=== PATIENT | female | born 1975 | race Caucasian/White ===

== ENCOUNTER 2017-07-09 09:37 | Inpatient (IN) | payer BC ==
[~2017-07-09] VITALS: Ht 167.6 cm; Wt 92.5 kg
[~2017-07-09 09:37] MED LIST: NAPR-1169 PO; ZOLP5TAB PO
[2017-07-09] MEDS ORDERED: METOCLOPRAMIDE HCL INJ 5 MG/ML 2 ML VIAL IV STA (10:06)
[2017-07-09] MEDS ORDERED: ONDANSETRON 8 MG/54 ML D5W IV STA (10:06)
[2017-07-09] MEDS ORDERED: SODIUM CHLORIDE 0.9% 1000ML 1,000 ML IV STA ×2 (10:06→11:35)
[2017-07-09] MEDS ORDERED: DiphenhydrAMINE HCL 50 MG/ML VIAL IV STA (10:06)
[2017-07-09] MEDS ORDERED: ACETAMINOPHEN 500 MG TAB PO STA (10:06)
--- NOTE | 2017-07-09 10:08 | EMERGENCY ROOM VISIT NOTE ---
History Report prepared by Dawood: Cecily Robins Under the Supervision of: Dr. Geoffrey Light M.D. First contact with patient: 09:52 Chief Complaint: HEADACHE Stated Complaint: SEVERE HEADACHES/FEVER SINCE MONDAY History of Present Illness The patient is a 42 year old white female with a past medical history of arthritis, asthma, and IBS who presents to the ED with a cc of a constant headache beginning 4 days ago. The patient states that in the morning 4 days ago she developed a headache and throughout the day the pain radiated into her neck. That she states that she noticed she had a fever at night and the fever lasted until yesterday. Pt states that 2 days ago her headache was worse than it has been throughout the entire week and she was not able to move her head at all. She reports that she took Tylenol, Motrin, Ibuprofen, and NyQuil without relief of her symptoms. The patient states that yesterday she thought that she was feeling better but her headache returned in the afternoon at an 8/10 in severity. She notes that this morning she had nausea and an episode of vomiting before coming in to the ED. Positive diaphoresis, nausea, vomiting, lethargy, achiness, and stiff neck. Negative cough, recent travel, urinary symptoms. She notes that she was on Omnicef for an inner ear infection 2 weeks ago for a 10 day course that she took 7 of due to diarrhea. Source of History: patient Onset: 4 days ago Position: head Symptom Intensity: 8/10 Timing: constant Modifying Factors (Relieving): other (none) Associated Symptoms: + fevers, + diaphoresis, + neck pain, + nausea, + vomiting, + diarrhea, + fatigue, No cough, No urinary symptoms Note: Pt has achiness. Review of Systems See HPI for pertinent positives and negatives. A total of ten systems were reviewed and were otherwise negative. Past Medical & Surgical Medical Problems: (1) Arthritis (2) Asthma (3) IBS (irritable bowel syndrome) Family History Cancer Diabetes mellitus Social History Smoking Status: Never Smoker Smokeless Tobacco Use: No Alcohol Use: none Marital Status: Housing Status: lives with family Occupation Status: unemployed Current/Historical Medications Scheduled Ibuprofen (Advil), 200-600 MG PO Q4H Allergies Coded Allergies: Penicillins (Verified Allergy, Intermediate, HIVES, 07/09/17) Physical Exam Vital Signs Date Time Temp Pulse Resp B/P (MAP) Pulse Ox O2 Delivery O2 Flow Rate FiO2 07/09/17 14:37 73 16 105/63 97 Room Air 07/09/17 14:00 88 07/09/17 13:17 07/09/17 12:54 76 20 112/75 97 Room Air 07/09/17 11:19 86 15 111/70 97 07/09/17 10:20 96 Room Air 07/09/17 09:56 105 07/09/17 09:42 37.6 123 16 135/89 95 Room Air Physical Exam GENERAL: Awake, alert, non-well appearing, NAD HENT: Normocephalic, atraumatic. EYES: Normal conjunctiva. Sclera non-icteric. NECK: Some neck stiffness, does not have full ROM. RESPIRATORY: Tachycardic but regular, no rhonchi, wheezing, crackles CARDIAC: RRR, no MRG ABDOMEN: Soft, NTND, BS+ MSK: No chest wall TTP, no LE edema, no CVA tenderness NEURO: CN 2-12 intact, 5/5 upper and lower extremity strength, no dysmetria, no drift, good finger to nose, no sensory deficits. SKIN: No rash or jaundice noted. No LE swelling. Medical Decision & Procedures ER Provider Diagnostic Interpretation: Radiology results as stated below per my review and radiologist interpretation: HEAD CT NONCONTRAST TECHNIQUE: Multiaxial CT images of the head were performed without the use of intravenous contrast. Automated exposure control was utilized for this study. A dose lowering technique was utilized adhering to the principles of ALARA. Comparison: None. Findings: The paranasal sinuses and mastoid air cells are clear. The calvarium and skull base are intact. The ventricles and sulci are within normal limits. There is no mass, hematoma, midline shift, or acute infarct. Impression: No acute intracranial abnormality. Electronically signed by: Jose Roberto Durham M.D. 07/09/2017 11:26 AM Dictated Date/Time: 07/09/2017 11:21 AM CHEST ONE VIEW PORTABLE FINDINGS: The lungs are clear. Cardiac silhouette is normal in size. No pleural effusions. No pneumothorax. IMPRESSION: No acute process. Electronically signed by: Jose Roberto Durham M.D. 07/09/2017 10:57 AM Dictated Date/Time: 07/09/2017 10:51 AM Laboratory Results 07/09/17 09:55 Red Blood Count 5.34, Mean Corpuscular Volume 83.7, Mean Corpuscular Hemoglobin 29.2, Mean Corpuscular Hemoglobin Concent 34.9, Mean Platelet Volume 9.8, Neutrophils (%) (Auto) 70.8, Lymphocytes (%) (Auto) 19.0, Monocytes (%) (Auto) 9.8, Eosinophils (%) (Auto) 0.2, Basophils (%) (Auto) 0.2, Neutrophils # (Auto) 3.40, Lymphocytes # (Auto) 0.91, Monocytes # (Auto) 0.47, Eosinophils # (Auto) 0.01, Basophils # (Auto) 0.01 07/09/17 09:55 Test 07/09/17 09:55 07/09/17 10:14 White Blood Count 4.80 K/uL (4.8-10.8) Red Blood Count 5.34 M/uL (4.2-5.4) Hemoglobin 15.6 g/dL (12.0-16.0) Hematocrit 44.7 % (37-47) Mean Corpuscular Volume 83.7 fL (80-100) Mean Corpuscular Hemoglobin 29.2 pg (25-34) Mean Corpuscular Hemoglobin Concent 34.9 g/dl (32-36) Platelet Count 213 K/uL (130-400) Mean Platelet Volume 9.8 fL (7.4-10.4) Neutrophils (%) (Auto) 70.8 % Lymphocytes (%) (Auto) 19.0 % Monocytes (%) (Auto) 9.8 % Eosinophils (%) (Auto) 0.2 % Basophils (%) (Auto) 0.2 % Neutrophils # (Auto) 3.40 K/uL (1.4-6.5) Lymphocytes # (Auto) 0.91 K/uL (1.2-3.4) Monocytes # (Auto) 0.47 K/uL (0.11-0.59) Eosinophils # (Auto) 0.01 K/uL (0-0.5) Basophils # (Auto) 0.01 K/uL (0-0.2) RDW Standard Deviation 38.7 fL (36.4-46.3) RDW Coefficient of Variation 12.9 % (11.5-14.5) Immature Granulocyte % (Auto) 0.0 % Immature Granulocyte # (Auto) 0.00 K/uL (0.00-0.02) Prothrombin Time 11.1 SECONDS (9.0-12.0) Prothromb Time International Ratio 1.0 (0.9-1.1) Activated Partial Thromboplast Time 27.8 SECONDS (21.0-31.0) Partial Thromboplastin Ratio 1.1 Anion Gap 6.0 mmol/L (3-11) Est Creatinine Clear Calc Drug Dose 104.8 ml/min Estimated GFR () 106.9 Estimated GFR (Non- 92.2 BUN/Creatinine Ratio 24.4 (10-20) Calcium Level 8.9 mg/dl (8.5-10.1) Magnesium Level 2.3 mg/dl (1.8-2.4) Total Bilirubin 0.4 mg/dl (0.2-1) Direct Bilirubin 0.1 mg/dl (0-0.2) Aspartate Amino Transf (AST/SGOT) 37 U/L (15-37) Alanine Aminotransferase (ALT/SGPT) 48 U/L (12-78) Alkaline Phosphatase 126 U/L (45-117) Total Protein 8.4 gm/dl (6.4-8.2) Albumin 3.8 gm/dl (3.4-5.0) Lipase 98 U/L (73-393) Thyroid Stimulating Hormone (TSH) 1.090 uIu/ml (0.300-4.500) Influenza Type A Antigen Neg for Influ A (NEG) Influenza Type B Antigen Neg for Influ B (NEG) Laboratory results reviewed by me Medications Administered Medications (Trade) Dose Ordered Sig/Junaid Route Start Time Stop Time Status Last Admin Dose Admin Sodium Chloride 1,000 ml @ 999 mls/hr Q1H1M STAT IV 07/09/17 10:07/09/17 11:06 DC 07/09/17 10:06 999 MLS/HR Ondansetron HCl (Zofran 8mg Iv) 8 mg NOW STAT IV 07/09/17 10:06 07/09/17 10:08 DC 07/09/17 10:16 8 MG Metoclopramide HCl (Reglan Inj) 10 mg NOW STAT IV 07/09/17 10:06 07/09/17 10:08 DC 07/09/17 10:16 10 MG Diphenhydramine HCl (Benadryl Inj) 50 mg NOW STAT IV 07/09/17 10:06 07/09/17 10:08 DC 07/09/17 10:16 50 MG Acetaminophen (Tylenol Tab) 1,000 mg NOW STAT PO 07/09/17 10:06 07/09/17 10:08 DC 07/09/17 10:16 1,000 MG Butalbital/ Aspirin/Caffeine (Fiorinal Tab/ CAP) 1 tab ONE STAT PO 07/09/17 11:35 07/09/17 11:38 DC 07/09/17 11:56 1 TAB Promethazine HCl (Phenergan Inj) 25 mg NOW STAT IM 07/09/17 11:35 07/09/17 11:38 DC 07/09/17 11:56 25 MG Sodium Chloride 1,000 ml @ 999 mls/hr Q1H1M STAT IV 07/09/17 11:35 07/09/17 12:35 DC 07/09/17 11:56 999 MLS/HR Hydromorphone HCl (Dilaudid Inj) 1 mg NOW STAT IV 07/09/17 12:54 07/09/17 12:55 DC 07/09/17 12:59 1 MG Procedure Lumbar Puncture Indication: fever, headache, stiff neck. Verbal consent was obtained after the risks and benefits were explained, including but not limited to headache, bleeding/clotting, scarring, infection, pain, and bone/joint/nerve damage. At this time, the risks of the procedure are less than the risks of NOT performing the procedure. A time out was taken and the correct patient and site identified. The patient was placed in the left lateral decubitus position and the back was prepped with betadine and draped in the standard fashion. The L3 intervertebral space was identified, anesthetized locally with 1% lidocaine without epinephrine, and the spinal needle was inserted through the skin with the bevel parallel to the dural fibers. The needle was carefully advanced into the lumbar cistern and no CSF was obtained. The stylet was replaced and the needle was removed. A bandaid was placed and the patient was placed in the supine position. There were 2 failed attempts. ECG Indication: other (headache) Rate (beats per minute): 98 Rhythm: normal sinus Findings: T-wave inversion (3 and AVF), no ectopy, other (normal intervals, T wave flattening in lateral leads V3-V6) Comparison ECG Date: 12-MAY-2015 Change: no significant change ED Course 0952: The patient was evaluated in room A12. A complete history and physical exam was performed. 1127: I reevaluated and updated the patient. 1333: Two failed attempts at lumbar puncture. See procedure note. 1414: Discussed the patient's case with Dr. Shin of [facility] [place]. The patient will be evaluated for further treatment and disposition. 1436: Upon reexamination, the patient was doing well. I discussed the test results and treatment plan with the patient. The patient will be evaluated for further management. Medical Decision The patient is a 42 year old white female with a past medical history of arthritis, asthma, and IBS who presents to the ED with a cc of a constant headache beginning 4 days ago. Differential diagnosis: Etiologies such as migraine headache, meningitis, sinusitis, CO exposure, ICH, SAH, infection, tumor, headache, sinus thrombosis, arterial dissection, as well as others were entertained. Patient was seen and evaluated the bedside. Patient had been complaining of some fever and headache that has been mildly intermittent although at times severe since Monday. Patient denies any recent travel. Patient did have a recent course of antibiotics for an ear infection of left ear but currently denies any ear pain or difficulty with hearing. Patient's temp is been a max of 101F. Patient denies any cough or urinary symptoms. Patient is on Mirena and LMP was 1 year ago. On exam patient does have some neck stiffness. Patient 's neuro exam is otherwise unremarkable. Patient's white count unremarkable. BMP fairly unremarkable as well. Patient CT negative. I discussed with the patient that given her persistent headache without much symptomatically here in the department with recent fever and ear infection be chambers to obtain a lumbar puncture. I did attempt the procedure without success. 2 separate times were attempted without success. Patient tolerated the procedure well. Given the symptoms with the inability to obtain CSF I spoke with the medicine team about further workup, headache control, and possible LP under fluoroscopy. Medication Reconcilliation Current Medication List: was personally reviewed by me Blood Pressure Screening Patient's blood pressure: Elevated blood pressure Blood pressure disposition: Elevated BP felt to be situational Consults Time Called: 1410 Consulting Physician: Dr. Shin - [facility] [place] Returned Call: 1414 Discussed the patient's case with Dr. Shin of [facility] [place]. The patient will be evaluated for further treatment and disposition. Impression Primary Impression: Fever Additional Impression: Headache Scribe Attestation The scribe's documentation has been prepared under my direction and personally reviewed by me in its entirety. I confirm that the note above accurately reflects all work, treatment, procedures, and medical decision making performed by me. Departure Information Dispostion Being Evaluated By Hospitalist Jojo Doan C.R.N.P. (PCP) Patient Instructions My [facility] Problem Qualifiers Primary Impression: Fever Fever type: unspecified Qualified Codes: R50.9 - Fever, unspecified Additional Impression: Headache Headache type: unspecified Headache chronicity pattern: acute headache Intractability: intractable Qualified Codes: R51 - Headache
[2017-07-09 10:20] LABS: BASO % 0.2 %; BASO ABS # 0.01 K/uL (0-0.2); COMPLETE YES; EOS % 0.2 %; HEMATOCRIT 44.7 % (37-47); LYMPH ABS # 0.91 K/uL (1.2-3.4); MEAN CELL VOLUME 83.7 fL (80-100); MEAN CORPUSCULAR HEMOGLOBIN 29.2 pg (25-34); MEAN CORPUSCULAR HGB CONC 34.9 g/dl (32-36); MEAN PLATELET VOLUME 9.8 fL (7.4-10.4); MONO % 9.8 %; NEUT % 70.8 %; PLATELET COUNT 213 K/uL (130-400); RED BLOOD COUNT 5.34 M/uL (4.2-5.4)
[2017-07-09 10:27] LABS: BUN/CREATININE RATIO 24.4 (10-20); CALCIUM 8.9 mg/dl (8.5-10.1); CREATININE 0.8 mg/dl (0.60-1.20); MAGNESIUM 2.3 mg/dl (1.8-2.4); POTASSIUM 3.5 mmol/L (3.5-5.1)
[2017-07-09 10:31] LABS: PARTIAL THROMBOPLASTIN RATIO 1.1; PROTHROMBIN TIME (PATIENT) 11.1 SECONDS (9.0-12.0)
[2017-07-09 10:38] LABS: THYROID STIMULATING HORMONE 1.09 uIu/ml (0.300-4.500)
[2017-07-09] MEDS ORDERED: IBUP-1050 PO (10:43)
--- NOTE | 2017-07-09 10:58 | DIAGNOSTIC IMAGING REPORT ---
CHEST ONE VIEW PORTABLE HISTORY: EVALUATE WEAKNESS COMPARISON: Chest 06/05/2015. FINDINGS: The lungs are clear. Cardiac silhouette is normal in size. No pleural effusions. No pneumothorax. IMPRESSION: No acute process. Electronically signed by: Jose Roberto Durham M.D. 07/09/2017 10:57 AM Dictated Date/Time: 07/09/2017 10:51 AM
--- NOTE | 2017-07-09 11:28 | DIAGNOSTIC IMAGING REPORT ---
HEAD CT NONCONTRAST CT DOSE: 537.48 mGy.cm HISTORY: EVALUATE WEAKNESS TECHNIQUE: Multiaxial CT images of the head were performed without the use of intravenous contrast. Automated exposure control was utilized for this study. A dose lowering technique was utilized adhering to the principles of ALARA. Comparison: None. Findings: The paranasal sinuses and mastoid air cells are clear. The calvarium and skull base are intact. The ventricles and sulci are within normal limits. There is no mass, hematoma, midline shift, or acute infarct. Impression: No acute intracranial abnormality. Electronically signed by: Jose Roberto Durham M.D. 07/09/2017 11:26 AM Dictated Date/Time: 07/09/2017 11:21 AM
[2017-07-09] MEDS ORDERED: BUTALBITAL/ASA/CAFFEINE 1 EA TAB/CAP PO STA (11:35)
[2017-07-09] MEDS ORDERED: PROMETHAZINE HCL INJ 25 MG/ML 1 ML VIAL IM STA (11:35)
[2017-07-09] MEDS ORDERED: HYDROmorphone INJ 1 MG/ML SYR IV STA (12:54)
[2017-07-09] MEDS ORDERED: LIDOCAINE/EPINEPHRINE 1% 20 ML VIAL INFIL ONE (13:15)
[2017-07-09] MEDS ORDERED: LIDO/EPINEPHRINE/SOD BICARB 20 ML VIAL INFIL ONE (13:15)
[2017-07-09] MEDS ORDERED: ALUMINUM/MAGNESIUM/SIMETH (MAALOX MAX) 30 ML UDC PO PRN (15:15)
[2017-07-09] MEDS ORDERED: MAGNESIUM HYDROXIDE SUSP 30 ML UDC PO PRN (15:15)
[2017-07-09] MEDS ORDERED: POLYETHYLENE (MIRALAX) 17 GM PACK PO PRN (15:15)
[2017-07-09] MEDS ORDERED: ONDANSETRON INJ 2 MG/ML 2 ML VIAL IV PRN (15:15)
[2017-07-09] MEDS ORDERED: ACETAMINOPHEN 325 MG TAB PO PRN (15:15)
[2017-07-09] MEDS ORDERED: CEFTRIAXONE SOD INJ 1 GM in DEXTROSE 5% ADD-VANTAGE 50ML 50 ML IV SCH (15:15)
[2017-07-09] MEDS ORDERED: DEXAMETHASONE SOD INJ 10 MG/ML VIAL IV STA (15:16)
[2017-07-09 16:00] VITALS: O2SAT 96; Ht 167.6 cm; Wt 92.5 kg
--- NOTE | 2017-07-09 16:04 | History and Physical ---
History & Physical Date & Time of Service: Jul 09, 2017 at 15:46 Chief Complaint: Severe Headaches/Fever Since Monday Primary Care Physician: Jojo Bowie C.R.N.P. History of Present Illness Source: patient, spouse, hospital records This is a 42 y/o female with a history of asthma, allergies, and IBS who presented to the ED on 07/09 with severe headache, fevers, and neck stiffness. The patient states she first developed severe frontal headaches on 07/05 that then became progressively worse. They became most severe on 07/07 with the patient complaining of 10/10 pain that radiated down the back of her head to her neck. She complains of associated neck stiffness/tightness and states that any neck movement exacerbates her pain. Currently her headache and neck pain is improved to a 6/10 duller pain. She also complains of fevers, chills and sweats despite taking Tylenol and ibuprofen round the clock, with her temperatures going up to 103F. She started to feel better the following day, but this morning prior to arrival began to feel worse again. This morning she had nausea and did vomit 1 time. She has not had much appetite and is feeling fatigued. She denies any changes in vision, dizziness, lightheadedness, motor weakness, numbness or tingling. The patient denies chest pain, palpitations, claudication, cough, wheezing, shortness of breath, abdominal pain, dysuria, hematuria, urinary retention, paralysis, weakness, numbness and tingling. Past Medical/Surgical History Medical Problems: (1) Arthritis Status: Chronic (2) Asthma Status: Chronic (3) IBS (irritable bowel syndrome) Status: Chronic Family History Cancer Diabetes mellitus Hypertension Myocardial infarction Social History Smoking Status: Never Smoker Smokeless Tobacco Use: No Alcohol Use: none Drug Use: none Marital Status: Housing status: lives with family Occupational Status: employed Immunizations History of Influenza Vaccine: Unknown History of Tetanus Vaccine?: Unknown History of Pneumococcal: Unknown History of Hepatitis B Vaccine: Unknown Multi-Drug Resistant Organisms History of MDRO: No Allergies Coded Allergies: Penicillins (Verified Allergy, Intermediate, HIVES, 07/09/17) Home Medications Scheduled Ibuprofen (Advil), 200-600 MG PO Q4H Review of Systems Constitutional: + fever, + chills, + sweats, + fatigue, + problem reported ( headache) Eyes: + problem reported (mild photosensitivity), No worsening of vision, No eye pain, No diplopia ENT: No hearing loss, No sore throat, No trouble swallowing Respiratory: No cough, No wheezing, No shortness of breath Cardiovascular: No chest pain, No claudication, No palpitations Abdomen: + nausea, + vomiting, No pain Musculoskeletal: + muscle pain (neck pain), No joint pain, No swelling Genitourinary - Female: No dysuria, No urinary retention, No hematuria Neurologic: No paralysis, No weakness, No numbness/tingling, No vertigo Integumentary: No rash, No itch, No color change Physical Exam Vital Signs Date Time Temp Pulse Resp B/P (MAP) Pulse Ox O2 Delivery O2 Flow Rate FiO2 07/09/17 14:37 73 16 105/63 97 Room Air 07/09/17 14:00 88 07/09/17 13:17 07/09/17 12:54 76 20 112/75 97 Room Air 07/09/17 11:19 86 15 111/70 97 07/09/17 10:20 96 Room Air 07/09/17 09:56 105 07/09/17 09:42 37.6 123 16 135/89 95 Room Air General appearance: +Obese. Mild distress. Well-developed, well-nourished Head: Normocephalic, atraumatic Eyes: Normal inspection, PERRL, EOMI ENT: +Dry oral mucosa. Normal ENT inspection, hearing grossly normal, pharynx normal Neck: +Limited ROM, especially flexion/extension. Any ROM exacerbates pain. Supple, no JVD, trachea midline Respiratory/Chest: Lungs clear to auscultation, normal breath sounds, no respiratory distress Cardiovascular: Regular rate & rhythm, no gallop, no murmur Abdomen/GI: Normal bowel sounds, non-tender, soft Extremities/Musculoskeletal: Normal inspection, no calf tenderness, no pedal edema Neurological/Psych: Alert, normal mood/affect, oriented x 3 Skin: Normal color, warm/dry, no rash Diagnostics Laboratory Results Results Past 24 Hours Test 07/09/17 09:55 07/09/17 10:14 07/09/17 15:19 07/09/17 15:37 Range/Units White Blood Count 4.80 4.8-10.8 K/uL Red Blood Count 5.34 4.2-5.4 M/uL Hemoglobin 15.6 12.0-16.0 g/dL Hematocrit 44.7 37-47 % Mean Corpuscular Volume 83.7 80-100 fL Mean Corpuscular Hemoglobin 29.2 25-34 pg Mean Corpuscular Hemoglobin Concent 34.9 32-36 g/dl Platelet Count 213 130-400 K/uL Mean Platelet Volume 9.8 7.4-10.4 fL Neutrophils (%) (Auto) 70.8 % Lymphocytes (%) (Auto) 19.0 % Monocytes (%) (Auto) 9.8 % Eosinophils (%) (Auto) 0.2 % Basophils (%) (Auto) 0.2 % Neutrophils # (Auto) 3.40 1.4-6.5 K/uL Lymphocytes # (Auto) 0.91 1.2-3.4 K/uL Monocytes # (Auto) 0.47 0.11-0.59 K/uL Eosinophils # (Auto) 0.01 0-0.5 K/uL Basophils # (Auto) 0.01 0-0.2 K/uL RDW Standard Deviation 38.7 36.4-46.3 fL RDW Coefficient of Variation 12.9 11.5-14.5 % Immature Granulocyte % (Auto) 0.0 % Immature Granulocyte # (Auto) 0.00 0.00-0.02 K/uL Prothrombin Time 11.1 9.0-12.0 SECONDS Prothromb Time International Ratio 1.0 0.9-1.1 Activated Partial Thromboplast Time 27.8 21.0-31.0 SECONDS Partial Thromboplastin Ratio 1.1 Sodium Level 137 136-145 mmol/L Potassium Level 3.5 3.5-5.1 mmol/L Chloride Level 104 98-107 mmol/L Carbon Dioxide Level 27 21-32 mmol/L Anion Gap 6.0 3-11 mmol/L Blood Urea Nitrogen 20 7-18 mg/dl Creatinine 0.80 0.60-1.20 mg/dl Est Creatinine Clear Calc Drug Dose 104.8 ml/min Estimated GFR () 106.9 Estimated GFR (Non- 92.2 BUN/Creatinine Ratio 24.4 10-20 Random Glucose 98 70-99 mg/dl Calcium Level 8.9 8.5-10.1 mg/dl Magnesium Level 2.3 1.8-2.4 mg/dl Total Bilirubin 0.4 0.2-1 mg/dl Direct Bilirubin 0.1 0-0.2 mg/dl Aspartate Amino Transf (AST/SGOT) 37 15-37 U/L Alanine Aminotransferase (ALT/SGPT) 48 12-78 U/L Alkaline Phosphatase 126 45-117 U/L Total Protein 8.4 6.4-8.2 gm/dl Albumin 3.8 3.4-5.0 gm/dl Lipase 98 73-393 U/L Thyroid Stimulating Hormone (TSH) 1.090 0.300-4.500 uIu/ml Influenza Type A Antigen Neg for Influ A NEG Influenza Type B Antigen Neg for Influ B NEG Test 07/09/17 15:38 Range/Units Microbiology Results 07/09/17 Blood Culture, Received Pending 07/09/17 Blood Culture, Received Pending 07/09/17 Gram Stain, Ordered Pending 07/09/17 CSF Culture, Ordered Pending 07/09/17 Group A Streptococcus Screen - Final, Resulted SPECIMEN NEGATIVE FOR GROUP A BETA ST... 07/09/17 Group A Streptococcus Screen (MAX), Resulted Pending Diagnostic Radiology Reviewed the following studies and agree with interpretation as follows: Patient Name: ADOLPH COATES Unit Number: [id number] Dictated: 07/09/171120 Transcribed: 07/09/171120 [facility] Printed Date/Time: [~ rep prt dt]/[~ rep prt tm] [~ rep ct labl] - [~ rep ct ivnm] [facility] Radiology Department [place], [place] [id number] Dictated: 07/09/171120 Transcribed: 07/09/171120 [facility] Printed Date/Time: [~ rep prt dt]/[~ rep prt tm] [~ rep ct labl] - [~ rep ct ivnm] Patient: ADOLPH COATES Address1: [address] [place] [address] Rec: [id number] Address2: Acct ID: [id number] [facility] Zip: [place] [address] Date: 1975 Sex: F Room/Bed: Ref Phy: Jojo Bowie C.R.N.PVladimir SC: [facility] Att Phy: Report #: [id number] Meggan Phy: Jojo Bowie C.R.N.P. Test: HWO Admit Phy: Freelance Court Reporter: EDEL Interpreting Phy: Jose Roberto Durham MD Diagnosis: SEVERE HEADACHES/FEVER SINCE MONDAY Ordering Phy: Geoffrey Light M.D. Service Date: 07/09/17 Admit Date: 07/09/17 MNE: PWRSCRIBE CONF: DICTATED BY: Jose Roberto Durham M.D.]] CC: Geoffrey Light M.D. Wilt, Kathryn A, C.R.N.P. Endcc: [~ rep ct add3]] HEAD CT NONCONTRAST CT DOSE: 537.48 mGy.cm HISTORY: EVALUATE WEAKNESS TECHNIQUE: Multiaxial CT images of the head were performed without the use of intravenous contrast. Automated exposure control was utilized for this study. A dose lowering technique was utilized adhering to the principles of ALARA. Comparison: None. Findings: The paranasal sinuses and mastoid air cells are clear. The calvarium and skull base are intact. The ventricles and sulci are within normal limits. There is no mass, hematoma, midline shift, or acute infarct. Impression: No acute intracranial abnormality. Electronically signed by: Jose Roberto Durham M.D. 07/09/2017 11:26 AM Dictated Date/Time: 07/09/2017 11:21 AM The status of this report is Signed. Draft = Not yet reviewed or approved by Radiologist. Signed = Reviewed and approved by Radiologist. <AttendingPhy></AttendingPhy> <FamilyPhy>Jojo Bowie C.R.NVladimirPVladimir</FamilyPhy> < PrimaryPhy>Jojo Bowie C.R.NYehuda</PrimaryPhy> <UnitNumber>[id number]</ UnitNumber> <VisitNumber>[id number]</VisitNumber> <PatientName>ADOLPH COATES </PatientName> <DateOfBirth>1975</DateOfBirth> <Location>[facility]</Location> <ServiceDate>07/09/17</ServiceDate> <MNE>ESINDI</MNE> <OrderingPhy>Geoffrey Light M.D.</OrderingPhy> <OrderingPhyMNE>f rep ord dr rhoades</OrderingPhyMNE> < DictatingPhyMNE>f rep dict dr rhoades</DictatingPhyMNE> <CCListMNE>f rep ct mne</ CCListMNE> <AdmittingPhyMNE>f pt admit dr rhoades</AdmittingPhyMNE> <AttendingPhyMNE >f pt attend dr rhoades</AttendingPhyMNE> <ConsultingPhyMNE>f pt consult dr rhoades</ConsultingPhyMNE> <FamilyPhyMNE>f pt fam dr rhoades</FamilyPhyMNE> <OtherPhyMNE>f pt other dr rhoades</OtherPhyMNE> < PrimaryPhyMNE>f pt prim care dr rhoades</PrimaryPhyMNE> <ReferringPhyMNE>f pt referring dr rhoades</ReferringPhyMNE> Patient Name: ADOLPH COATES Unit Number: [id number] Dictated: 07/09/171050 Transcribed: 07/09/171050 [facility] Printed Date/Time: [~ rep prt dt]/[~ rep prt tm] [~ rep ct labl] - [~ rep ct ivnm] [facility] [place] [address] Dictated: 07/09/171050 Transcribed: 07/09/171050 [facility] Printed Date/Time: [~ rep prt dt]/[~ rep prt tm] [~ rep ct labl] - [~ rep ct ivnm] Patient: ADOLPH COATES Address1: [address] [place] [address] Rec: [id number] Address2: Acct ID: [id number] [facility] Zip: [place] [address] Date: 1975 Sex: F Room/Bed: Ref Phy: Jojo Bowie C.R.N.PVladimir SC: [facility] Att Phy: Report #: [id number] Meggan Phy: Wilt, Jojo A,C.R.N.P. Test: CXR1P Admit Phy: Freelance Court Reporter: CAROLYN Interpreting Phy: Jose Roberto Durham MD Diagnosis: SEVERE HEADACHES/FEVER SINCE MONDAY Ordering Phy: Geoffrey Light M.D. Service Date: 07/09/17 Admit Date: 07/09/17 MNE: PWRSCRIBE CONF: DICTATED BY: Jose Roberto Durham M.D.]] CC: Geoffrey Light M.D. Wilt, Kathryn A, C.R.N.PVladimir Endcc: [~ rep ct add3]] CHEST ONE VIEW PORTABLE HISTORY: EVALUATE WEAKNESS COMPARISON: Chest 06/05/2015. FINDINGS: The lungs are clear. Cardiac silhouette is normal in size. No pleural effusions. No pneumothorax. IMPRESSION: No acute process. Electronically signed by: Jose Roberto Durham M.D. 07/09/2017 10:57 AM Dictated Date/Time: 07/09/2017 10:51 AM The status of this report is Signed. Draft = Not yet reviewed or approved by Radiologist. Signed = Reviewed and approved by Radiologist. <AttendingPhy></AttendingPhy> <FamilyPhy>Jojo Bowie C.R.N.PVladimir</FamilyPhy> < PrimaryPhy>Jojo Bowie C.RVladimirN.PVladimir</PrimaryPhy> <UnitNumber>[id number]</ UnitNumber> <VisitNumber>[id number]</VisitNumber> <PatientName>ADOLPH COATES </PatientName> <DateOfBirth>1975</DateOfBirth> <Location>[facility]</Location> <ServiceDate>07/09/17</ServiceDate> <MNE>ESINDI</MNE> <OrderingPhy>Geoffrey Light M.D.</OrderingPhy> <OrderingPhyMNE>f rep ord dr rhoades</OrderingPhyMNE> < DictatingPhyMNE>f rep dict dr rhoades</DictatingPhyMNE> <CCListMNE>f rep ct mne</ CCListMNE> <AdmittingPhyMNE>f pt admit dr rhoades</AdmittingPhyMNE> <AttendingPhyMNE >f pt attend dr rhoades</AttendingPhyMNE> <ConsultingPhyMNE>f pt consult dr rhoades</ConsultingPhyMNE> <FamilyPhyMNE>f pt fam dr rhoades</FamilyPhyMNE> <OtherPhyMNE>f pt other dr rhoades</OtherPhyMNE> < PrimaryPhyMNE>f pt prim care dr rhoades</PrimaryPhyMNE> <ReferringPhyMNE>f pt referring dr rhoades</ReferringPhyMNE> EKG Reviewed EKG and agree with interpretation as follows: 98 bpm, NSR, inferior T wave inversions Impression Assessment and Plan 42 y/o female with a history of asthma, allergies, and IBS who presented to the ED on 07/09 with severe headache, fevers, and neck stiffness. Pt afebrile, VSS on arrival. Head CT and CXR show no acute disease. EKG significant for inferior T wave inversions. Labs grossly unremarkable. Lumbar puncture attempted 2x in ED, unsuccessful. Suspected meningitis, severe headache--likely viral but cannot rule out bacterial -Admit to telemetry -Spoke with radiology, will perform fluoroscopy guided lumbar puncture -Check CSF total protein, glucose, LDH, culture and Gram stain, cell count/ differential, lactate, Lyme antibodies -Check serum Lyme antibodies -Blood cultures pending -Decadron 10 mg IV x 1 now, then 6 mg IV q6h -Start empiric Rocephin 2 gm IV q12h and vancomycin after CSF culture obtained -Dilaudid 0.5 mg IV q4h prn pain -Zofran 4 mg IV q6h prn nausea -NSS + 20 mEq KCl at 125 cc/hr -Pt severely claustrophobic, not agreeable to MRI H/o asthma--pt has prn albuterol inhaler but has not needed for several months H/o allergies--pt had been taking Zyrtec and Zantac but has not needed for several months DVT prophylaxis -Enoxaparin 40 mg SC q24h -JESSICA Sibley Code Status -Level I, FULL RESUSCITATION STATUS Attending Addendum: I have physically seen and examined this patient, have directed the physician assistants medical activities, and agree with the H&P as noted above with the following exceptions as noted. The patient is awake, alert and oriented 3, well-developed and well-nourished , normocephalic and atraumatic, lying in bed and in no acute distress. HEENT--PERRL, EOMI, mucous membranes and oropharynx dry. Neck--supple, no JVD or bruits, thyroid normal, trachea midline, no adenopathy. Heart--normal S1 and S2, no extra beats, no murmurs, rubs or gallops. Lungs--clear bilaterally with good air movement, no respiratory distress, no accessory muscle use. Abdomen--normal bowel sounds and soft, nontender and nondistended, no hernias or masses, no organomegaly. Extremities--no cyanosis, clubbing or edema. There are good distal pulses b/l. Dermatologic--normal skin turgor, normal color, warm and dry, no abnormal lymph nodes, no rash. Neurologic--cranial nerves II through XII grossly intact, motor and sensory examination normal. Rheumatologic--decreased range of motion of neck and mildly tender. Remainder of exam is normal. Psychiatric--normal affect. Assessment and Plan: Severe headache, possible meningitis-- Give Decadron 10 mg IV now, and then 6 mg IV every 6 hours. Vancomycin IV per renal dosing. Ceftriaxone 2 g IV every 12 hours with first dose now. Levofloxacin 750 mg IV daily. Dilaudid 0.5 mg IV every 4 hours when necessary. Zofran 4 mg IV every 6 hours when necessary. Famotidine 20 g IV every 12 hours. NSS with KCl 20 mEq at 125 ML's per hour Patient unable to do MRI due to severe claustrophobia. Radiology consulted for fluoroscopy guided LP. Follow LP studies. Asthma--no active symptoms at this time Allergies--no active symptoms at this time. Level of Care Telemetry Advanced Directives Existing Advance Directive: No Existing Living Will: No Existing Power of Catering Cook: No Resuscitation Status FULL RESUSCITATION VTE Prophylaxis VTE Risk Assessment Done? Y/N: Yes Risk Level: Moderate Given or contraindicated: Enoxaparin (Lovenox)SQ, T.E.D. Stockings, SCD's Social Service Consult None Apply
[2017-07-09 16:11] LABS: LYME DISEASE AB IGG NEG (NEG)
[2017-07-09 16:12] LABS: LYME DISEASE AB IGM EQUIVOCAL (NEG)
[2017-07-09 17:00] VITALS: BP 126/78; PULSE 71; TEMP 37.2; O2SAT 95
--- NOTE | 2017-07-09 17:05 | DIAGNOSTIC IMAGING REPORT ---
FLUOROSCOPICALLY GUIDED LUMBAR PUNCTURE CLINICAL HISTORY: SUSPECTED MENINGITIS, 2 FAILED ATTEMPTS IN ED PROCEDURE: The procedure, risks and benefits were discussed with the patient including the risk of spinal headache, bleeding and infection. The patient agreed to the procedure and informed written consent was obtained. The procedure was performed by Dr. Dockery following a timeout. The right L3-L4 interlaminar space was targeted. Skin overlying the space was prepped and draped in sterile fashion and local anesthesia was achieved with 1% lidocaine. Under intermittent fluoroscopic guidance, a 5 inch, 22-gauge spinal needle was directed into the thecal sac with immediate return of clear cerebrospinal fluid. 8 cc of CSF was collected in 4 vials and sent to the laboratory as ordered. The needle was removed. The patient tolerated the procedure well and no immediate complications were evident. IMPRESSION: Fluoroscopically guided lumbar puncture with collection of 8 cc of clear cerebrospinal fluid. Electronically signed by: Edy Dockery M.D. 07/09/2017 5:04 PM Dictated Date/Time: 07/09/2017 5:02 PM
[2017-07-09 17:14] LABS: CSF CHEMISTRY TUBE # 1
[2017-07-09] MEDS ORDERED: VANCOMYCIN CONSULT ACTIVE PRN (17:15)
[2017-07-09 17:22] LABS: CSF APPEARANCE CLEAR; CSF COLOR COLORLESS; CSF XANTHOCHROMIC NO XANTHOCHROMIA
[2017-07-09 17:29] LABS: CSF LACTATE** 1.4 mmol/L (0.6-2.2); CSF TOTAL PROTEIN 35.4 mg/dl (15.0-45.0)
[2017-07-09] MEDS ORDERED: DEXAMETHASONE INJ 10 MG in SYRINGE 0 ML IV ONE (17:30)
[2017-07-09] MEDS: HYDROmorphone INJ 0.5 MG/0.5 ML SYR IV PRN ×2 (17:35→21:33)
[2017-07-09] MEDS: NSS + 20MEQ KCL 1000ML 1,000 ML IV SCH (17:42)
[2017-07-09] MEDS ORDERED: VANCOMYCIN INJ 2,250 MG in SODIUM CHLORIDE 0.9% 500ML 500 ML IV SCH (17:45)
--- NOTE | 2017-07-09 19:01 | Pharmacy Progress Note ---
Pharmacy Abx Initial Consult Date of Service Jul 09, 2017. Pharmacy Dosing Scope Date of Consult: 07/09/17 Consultation requested by: LUZ ELENA [facility] is consulted to initiate Vancomycin IV dosing therapy for meningitis, order appropriate labs and adjust drug dose/frequency. Subjective The patient is a 42 year old female admitted on Jul 09, 2017 at 15:15. Objective Height (Feet): 5 Height (Inches): 6.00 Weight (Kilograms): 88.700 Vital Signs (Past 12Hrs) Vital Signs Past 12 Hours Date Time Temp Pulse Resp B/P (MAP) Pulse Ox O2 Delivery O2 Flow Rate FiO2 07/09/17 17:00 37.2 71 18 126/78 (94) 95 Room Air 07/09/17 16:20 37.1 69 21 115/72 94 07/09/17 16:07 69 21 94 07/09/17 16:00 96 Room Air 07/09/17 15:44 37.1 79 16 115/72 96 Room Air 07/09/17 15:43 115/72 07/09/17 15:37 79 14 07/09/17 15:07 87 18 07/09/17 14:37 73 16 105/63 97 Room Air 07/09/17 14:37 74 21 105/63 07/09/17 14:07 80 20 07/09/17 14:00 88 07/09/17 13:37 79 27 07/09/17 13:17 07/09/17 13:07 68 19 07/09/17 12:54 112/75 07/09/17 12:54 76 20 112/75 97 Room Air 07/09/17 12:37 72 22 07/09/17 12:07 79 23 07/09/17 11:37 84 22 07/09/17 11:20 111/70 07/09/17 11:19 86 15 111/70 97 07/09/17 10:37 94 28 07/09/17 10:20 96 Room Air 07/09/17 10:07 98 16 07/09/17 09:56 105 07/09/17 09:42 37.6 123 16 135/89 95 Room Air Lab Results (24Hrs) Laboratory Tests (24 Hours) Test 07/09/17 09:55 White Blood Count 4.80 K/uL (4.8-10.8) Red Blood Count 5.34 M/uL (4.2-5.4) Hemoglobin 15.6 g/dL (12.0-16.0) Hematocrit 44.7 % (37-47) Mean Corpuscular Volume 83.7 fL (80-100) Mean Corpuscular Hemoglobin 29.2 pg (25-34) Mean Corpuscular Hemoglobin Concent 34.9 g/dl (32-36) Platelet Count 213 K/uL (130-400) Mean Platelet Volume 9.8 fL (7.4-10.4) Neutrophils (%) (Auto) 70.8 % Lymphocytes (%) (Auto) 19.0 % Monocytes (%) (Auto) 9.8 % Eosinophils (%) (Auto) 0.2 % Basophils (%) (Auto) 0.2 % Neutrophils # (Auto) 3.40 K/uL (1.4-6.5) Lymphocytes # (Auto) 0.91 K/uL (1.2-3.4) L Monocytes # (Auto) 0.47 K/uL (0.11-0.59) Eosinophils # (Auto) 0.01 K/uL (0-0.5) Basophils # (Auto) 0.01 K/uL (0-0.2) Micro Results Date/Time Source Procedure Growth Status 07/09/17 10:24 Blood Blood Culture Pending Received 07/09/17 09:55 Blood Blood Culture Pending Received 07/09/17 16:35 Cerebral Spinal Fluid Gram Stain - Preliminary Resulted 07/09/17 16:35 Cerebral Spinal Fluid CSF Culture Pending Resulted 07/09/17 10:14 Throat Group A Streptococcus Screen - Final SPECIMEN NEGATIVE FOR GROUP A BETA ST... Resulted 07/09/17 10:14 Throat Group A Streptococcus Screen (MAX) Pending Resulted Risk Factors for Resistance * Antimicrobial use within the last 90 days Cefdiner [unknown dose] ~2 weeks ago for a 7-day treatment course Assessment & Plan Assessment 42 year old female Plan Pharmacy has been consulted for treatment of meningitis Vancomycin IV * Loading dose: 2250 mg (25 mg/kg) * Maintenance dose: 1250 mg IV (14 mg/kg) every 8 hours * Goal trough level for meningitis : 15 to 20 mcg/mL (closer to 20mcg/mL) * Trough level ordered for 07/10/17 ~30 minutes before the 3rd maintenance dose Pharmacy will continue to follow and will adjust dose/frequency as necessary. Thank you.
[2017-07-09 19:22] VITALS: BP 100/67; PULSE 75; TEMP 37.2; O2SAT 93
[2017-07-09 20:00] VITALS: O2SAT 93
[2017-07-09] MEDS: CEFTRIAXONE SOD INJ 2000 MG in DEXTROSE 5% 50ML IV SCH (20:38)
[2017-07-09] MEDS: ENOXAPARIN 40 MG/0.4 ML SYR SC SCH (20:39)
[2017-07-09] MEDS ORDERED: VANCOMYCIN INJ 1,000 MG in SODIUM CHLORIDE 0.9% 250ML 250 ML IV SCH (21:00)
[2017-07-09 21:09] LABS: URINE APPEARANCE CLEAR (CLEAR); URINE BILIRUBIN NEG (NEG); URINE COLOR YELLOW; URINE NITRITE NEG (NEG); URINE PH 6.5 (4.5-7.5); URINE SPECIFIC GRAVITY 1.014 (1.000-1.030); UROBILINOGEN NEG (NEG)
[2017-07-09 21:17] LABS: MANUAL MICROSCOPIC REQUIRED? NO; REVIEW REQ? NO
[2017-07-09] MEDS: DEXAMETHASONE INJ 6 MG in SYRINGE 0 ML IV SCH (23:08)
[2017-07-09] MEDS ORDERED: HYDROmorphone INJ 0.5 MG/0.5 ML SYR IV STA (23:51)
[2017-07-10] VITALS (10 sets, daily range): BP systolic 91–111; BP diastolic 50–75; PULSE 56–71; TEMP 36.5–37.1; O2SAT 92–98
[2017-07-10] MEDS: NSS + 20MEQ KCL 1000ML 1,000 ML IV SCH ×3 (02:11→18:03)
[2017-07-10] MEDS: VANCOMYCIN INJ 1,250 MG in SODIUM CHLORIDE 0.9% 250ML 250 ML IV SCH ×2 (02:12→09:37)
[2017-07-10] MEDS: HYDROmorphone INJ 0.5 MG/0.5 ML SYR IV PRN ×5 (02:12→19:58)
[2017-07-10] MEDS: DEXAMETHASONE INJ 6 MG in SYRINGE 0 ML IV SCH (05:05)
[2017-07-10 06:31] LABS: HEMATOCRIT 38.1 % (37-47); MEAN CELL VOLUME 84.1 fL (80-100); MEAN CORPUSCULAR HEMOGLOBIN 29.4 pg (25-34); MEAN CORPUSCULAR HGB CONC 34.9 g/dl (32-36); MEAN PLATELET VOLUME 9.6 fL (7.4-10.4); PLATELET COUNT 200 K/uL (130-400); RED BLOOD COUNT 4.53 M/uL (4.2-5.4); WHITE BLOOD COUNT 2.73 K/uL (4.8-10.8)
[2017-07-10] MEDS ORDERED: INFLUENZA ADMINISTRATION CHARGE ONE (07:00)
[2017-07-10] MEDS ORDERED: INFLUENZA VIRUS QUAD VACCINE 0.5 ML SYR IM. ONE (07:00)
[2017-07-10 07:11] LABS: CREATININE 0.54 mg/dl (0.60-1.20)
[2017-07-10] MEDS: CEFTRIAXONE SOD INJ 2000 MG in DEXTROSE 5% 50ML IV SCH (07:38)
[2017-07-10] MEDS ORDERED: HYDROmorphone INJ 1 MG/ML SYR ONE (09:33)
[2017-07-10] MEDS ORDERED: HYDROmorphone INJ 1 MG/ML SYR IV SCH (09:45)
[2017-07-10] MEDS ORDERED: CYCLOBENZAPRINE HCL 10 MG TAB PO ONE (11:45)
--- NOTE | 2017-07-10 13:27 | Medical Student: [facility] ---
Med Student Progress Note Date of Service Jul 10, 2017. Subjective Pt evaluation today including: conversation w/ patient, conversation w/ family , physical exam, chart review, lab review, review of studies Pt is a 42 yo female with a PMH of Asthma, allergies and IBS - who has had a severe headache, fever and neck stiffness for the last five days. She has had no history of headaches/migraines. She notes that the headache starts in the frontal region and extend to the occipital region and down her neck. They are typically a dull, throbbing sensation, but have been sharp and stabbing on occasion. She is also photosensitive. Overnight the headache was as bad as an 8/ 10 but is now about a 4/10 with 1gm of Dilaudid. She notes that about a month ago she was treated for mastoiditis and her daughter was sick with the flu about 2 weeks ago. She feels slightly week and has no appetite. She feels tired but has been unable to get restful sleep. She does note some visual hallucinations after starting the Dilaudid but per her 's report her mentation has remained the same throughout the entire period of the illness. She denies n/v/d/c, fever chills now. She has less pain with neck rotation but still notes pain that impedes neck flexion. She has been hospitalized before for vertigo. Does not have any hearing loss. She has been hypotensive and bradycardic overnight. Her LP was negative for RBCs and WBCs (RBC=0, WBC=0), there was no xanthochromia. Glucose was 46 and total protein was 35.4. Throat culture was negative for Strep. Urine and CSF cultures are still pending. Head CT and CXR negative for acute processes. Review of Systems Constitutional: + weakness (generalized), No fever, No chills, No sweats Eyes: + problem reported (photophobia) ENT: No hearing loss, No tinnitus Respiratory: No cough, No sputum, No wheezing, No shortness of breath Cardiac: No chest pain, No palpitations Abdomen: No pain, No nausea, No vomiting, No diarrhea, No constipation Musculoskeletal: No joint pain Female : No dysuria, No urinary frequency Neurologic: + problem reported (dizzy while sitting up. 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 ), No itch Objective Vital Signs Date Time Temp Pulse Resp B/P (MAP) Pulse Ox O2 Delivery O2 Flow Rate FiO2 07/10/17 12:06 36.8 57 18 111/70 (84) 92 Room Air 07/10/17 12:00 95 Room Air 07/10/17 08:00 97 Room Air 07/10/17 07:04 36.7 56 18 91/58 (69) 97 Room Air 07/10/17 04:00 93 Room Air 07/10/17 04:00 36.7 71 18 110/75 (87) 98 Room Air 07/10/17 00:03 37.1 62 18 96/51 (66) 94 Room Air 07/10/17 00:00 93 Room Air 07/09/17 20:00 93 Room Air 07/09/17 19:22 37.2 75 20 100/67 (78) 93 Room Air 07/09/17 17:00 37.2 71 18 126/78 (94) 95 Room Air 07/09/17 16:20 37.1 69 21 115/72 94 07/09/17 16:07 69 21 94 07/09/17 16:00 96 Room Air 07/09/17 15:44 37.1 79 16 115/72 96 Room Air 07/09/17 15:43 115/72 07/09/17 15:37 79 14 07/09/17 15:07 87 18 07/09/17 14:37 73 16 105/63 97 Room Air 07/09/17 14:37 74 21 105/63 07/09/17 14:07 80 20 07/09/17 14:00 88 07/09/17 13:37 79 27 07/09/17 13:17 Physical Exam General Appearance: WD/WN, no apparent distress (resting in bed with eyes closed. ) ENT: hearing grossly normal, TMs normal (no effusions), pharynx normal Neck: supple, no adenopathy, no JVD, + pertinent finding (tender/tight in posterior neck ? musculoskelatal) Respiratory/Chest: lungs clear, normal breath sounds, no respiratory distress Cardiovascular: regular rate, rhythm, no edema, no murmur Abdomen: non tender, soft, no organomegaly Extremities: normal range of motion, non-tender, normal inspection, no pedal edema Neurologic/Psychiatric: alert, normal mood/affect, oriented x 3 Skin: normal color, warm/dry, + pertinent finding (healed bug bites present on RLE) Laboratory Results Last 24 Hours Test 07/09/17 16:35 07/09/17 20:52 07/10/17 06:18 07/10/17 11:27 CSF Color COLORLESS CSF Appearance CLEAR CSF WBC 0 /uL CSF RBC 0 /uL CSF Xanthrochromic NO XANTHOCHROMIA CSF Cell Count Tube # 3 CSF Chemistry Tube # 1 CSF Glucose 46 mg/dl CSF Lactic Acid 1.4 mmol/L CSF Total Protein 35.4 mg/dl Urine Color YELLOW Urine Appearance CLEAR Urine pH 6.5 Urine Specific [place] 1.014 Urine Protein NEG Urine Glucose (UA) NEG Urine Ketones 1+ Urine Occult Blood NEG Urine Nitrite NEG Urine Bilirubin NEG Urine Urobilinogen NEG Urine Leukocyte Esterase NEG White Blood Count 2.73 K/uL Red Blood Count 4.53 M/uL Hemoglobin 13.3 g/dL Hematocrit 38.1 % Mean Corpuscular Volume 84.1 fL Mean Corpuscular Hemoglobin 29.4 pg Mean Corpuscular Hemoglobin Concent 34.9 g/dl RDW Standard Deviation 39.0 fL RDW Coefficient of Variation 12.8 % Platelet Count 200 K/uL Mean Platelet Volume 9.6 fL Sodium Level 140 mmol/L Potassium Level 4.0 mmol/L Chloride Level 107 mmol/L Carbon Dioxide Level 25 mmol/L Anion Gap 8.0 mmol/L Blood Urea Nitrogen 10 mg/dl Creatinine 0.54 mg/dl Est Creatinine Clear Calc Drug Dose 155.2 ml/min Estimated GFR () 136.8 Estimated GFR (Non- 118.0 BUN/Creatinine Ratio 18.0 Random Glucose 130 mg/dl Calcium Level 8.0 mg/dl Monoscreen NEG Assessment and Plan Assessment and Plan: Patient is a 42 yo female with PMH significant for asthma, allergies and IBS. She has had a 5 day h/o severe headache, neck stiffness, fever. Viral Meningitis - improved neck ROM. Headaches continue to be severe. -LP unremarkable for WBCs thus do not suspect bacterial meningitis. Pt has also been afebrile. D/c antibiotics, decadron. -Daughter had recent "flu-like" illness, patient works in long-[employer]. Suspect Viral meningitis. -Monospot test is negative. -Lyme serology is negative. -Blood and CSF cxs still pending. COntinue to follow. -Throat swab negative for Strep. -Continue Dilaudid 0.5 mg q 4 hrs PRN pain -Decreased appetite - continue NSS +20 meq of K at 125 cc/hr. Continue to monitor BP and HR. -Anticipate with time and supportive care pt will improve. -Neutropenic today, will continue to trend. May be dt viral infxn. -Cervical tightness/pain - ? muscle strain. - Flexeril 10mg given once. Asthma - Controlled. -Has albuterol inhaler for PRN basis. Has not used in months. Allergies - Controlled. -Uses Zyrtec on PRN basis. DVT prophylaxis: Lovenox 40 mg q day Code Status: FULL RESUSCITATION STATUS Dispo: Remain on Medical floor. Continued [facility] stay due to: inadequate po fluid intake
--- NOTE | 2017-07-10 16:51 | Progress Note ---
Subjective Date of Service: Jul 10, 2017. Subjective Pt evaluation today including: conversation w/ patient, conversation w/ family (), physical exam, lab review, review of inpatient medication list Pain: still with headache PO Intake: poor appetite Voiding: no voiding problems reviewed presentation with headache and fever, several days duration prior to presentation two weeks ago she was treated for left sided mastoiditis, completed only 7 days due to diarrhea, Omnicef one week ago her daughter had similar symptoms of fever and headache, resolved after 4 days patient feels slightly better since admission, headache down to 4 out of 10 at times, better with the Dilaudid she did notice some visual hallucinations with the dilaudid, made it difficult to sleep reviewed lab results, CSF clear of signs of infection, cultures still pending influenza negative, monospot negative, Lyme negative discussed all results with patient confirmed that at no time did she have altered mental status, explained MRI brain not needed, she would prefer not to get one anyway Problem List Medical Problems: (1) Fever Status: Acute (2) Headache Status: Acute Review of Systems Constitutional: + fever, + chills, + sweats, + weakness, + fatigue, + problem reported (headache) ENT: + nasal symptoms (congestion) Abdomen: + nausea, + vomiting All Other Systems: Reviewed and Negative Medications Current Inpatient Medications Medications (Trade) Dose Ordered Sig/Junaid Route Start Time Stop Time Status Last Admin Dose Admin Enoxaparin Sodium (Lovenox Inj) 40 mg HS SC 07/09/17 21:00 08/08/17 20:59 07/09/17 20:39 40 MG Potassium Chloride/Sodium Chloride 1,000 ml @ 125 mls/hr Q8H IV 07/09/17 17:30 08/08/17 17:29 07/10/17 09:36 125 MLS/HR Acetaminophen (Tylenol Tab) 650 mg Q4H PRN PO 07/09/17 15:15 08/08/17 15:14 07/10/17 05:05 650 MG Al Hydrox/Mg Hydrox/Simethicone (Maalox Max Susp) 15 ml Q4H PRN PO 07/09/17 15:15 08/08/17 15:14 Magnesium Hydroxide (Milk Of Magnesia Susp) 30 ml Q12H PRN PO 07/09/17 15:15 08/08/17 15:14 Ondansetron HCl (Zofran Inj) 4 mg Q6H PRN IV 07/09/17 15:15 08/08/17 15:14 Polyethylene (Miralax Powder Packet) 17 gm DAILY PRN PO 07/09/17 15:15 08/08/17 15:14 Hydromorphone HCl (Dilaudid Inj) 0.5 mg Q4H PRN IV 07/09/17 15:15 07/23/17 15:14 07/10/17 16:03 0.5 MG Objective Vital Signs Date Time Temp Pulse Resp B/P (MAP) Pulse Ox O2 Delivery O2 Flow Rate FiO2 07/10/17 15:38 36.5 57 20 100/63 (75) 94 07/10/17 12:06 36.8 57 18 111/70 (84) 92 Room Air 07/10/17 12:00 95 Room Air 07/10/17 08:00 97 Room Air 07/10/17 07:04 36.7 56 18 91/58 (69) 97 Room Air 07/10/17 04:00 93 Room Air 07/10/17 04:00 36.7 71 18 110/75 (87) 98 Room Air 07/10/17 00:03 37.1 62 18 96/51 (66) 94 Room Air 07/10/17 00:00 93 Room Air 07/09/17 20:00 93 Room Air 07/09/17 19:22 37.2 75 20 100/67 (78) 93 Room Air 07/09/17 17:00 37.2 71 18 126/78 (94) 95 Room Air Physical Exam General Appearance: WD/WN, no apparent distress Eyes: normal inspection, EOMI, sclerae normal ENT: normal ENT inspection, hearing grossly normal, TMs normal, pharynx normal Neck: no adenopathy, thyroid normal, no JVD, trachea midline, + pertinent finding (bilateral paraspinal muscle tenderness, increased tension in cervical region, trapezius tenderness and increased tension) Respiratory/Chest: chest non-tender, lungs clear, normal breath sounds, no respiratory distress, no accessory muscle use Cardiovascular: regular rate, rhythm, no edema, no gallop, no JVD, no murmur Abdomen: normal bowel sounds, non tender, soft, no organomegaly Extremities: normal range of motion, non-tender, normal inspection, no pedal edema, normal capillary refill, pelvis stable 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/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: 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 tested, no motor/sensory deficits, alert, normal mood/affect, oriented x 3 Skin: normal color, warm/dry, no rash Laboratory Results Last 24 Hours Test 07/09/17 20:52 07/10/17 06:18 07/10/17 11:27 Urine Color YELLOW Urine Appearance CLEAR Urine pH 6.5 Urine Specific [place] 1.014 Urine Protein NEG Urine Glucose (UA) NEG Urine Ketones 1+ Urine Occult Blood NEG Urine Nitrite NEG Urine Bilirubin NEG Urine Urobilinogen NEG Urine Leukocyte Esterase NEG White Blood Count 2.73 K/uL Red Blood Count 4.53 M/uL Hemoglobin 13.3 g/dL Hematocrit 38.1 % Mean Corpuscular Volume 84.1 fL Mean Corpuscular Hemoglobin 29.4 pg Mean Corpuscular Hemoglobin Concent 34.9 g/dl RDW Standard Deviation 39.0 fL RDW Coefficient of Variation 12.8 % Platelet Count 200 K/uL Mean Platelet Volume 9.6 fL Sodium Level 140 mmol/L Potassium Level 4.0 mmol/L Chloride Level 107 mmol/L Carbon Dioxide Level 25 mmol/L Anion Gap 8.0 mmol/L Blood Urea Nitrogen 10 mg/dl Creatinine 0.54 mg/dl Est Creatinine Clear Calc Drug Dose 155.2 ml/min Estimated GFR () 136.8 Estimated GFR (Non- 118.0 BUN/Creatinine Ratio 18.0 Random Glucose 130 mg/dl Calcium Level 8.0 mg/dl Monoscreen NEG Assessment and Plan 42 y/o female with a history of asthma, allergies, and IBS who presented to the ED on 07/09 with severe headache, fevers, and neck stiffness. Pt afebrile, VSS on arrival. Head CT and CXR show no acute disease. EKG significant for inferior T wave inversions. Labs grossly unremarkable. Lumbar puncture attempted 2x in ED, unsuccessful. Severe headache, neck stiffness, fevers prior to admission suspected meningitis, likely viral given daughter had similar symptoms a week prior no evidence of bacterial meningitis on CSF, will stop Vancomycin, Rocephin and Decadron stop droplet precautions some of headache and neck pain due to paraspinal muscle tenderness, relief with a single dose of Flexeril 10mg will continue Flexeril 10mg q8 PRN continue Dilaudid IV PRN continue IV fluids as appetite is poor and clinically dry H/o asthma--pt has prn albuterol inhaler but has not needed for several months H/o allergies--pt had been taking Zyrtec and Zantac but has not needed for several months DVT prophylaxis -Enoxaparin 40 mg SC q24h -JESSICA Sibley Code Status -Level I, FULL RESUSCITATION STATUS Continued [facility] stay due to: inadequate po fluid intake
[2017-07-10] MEDS ORDERED: VANCOMYCIN TROUGH SCH (17:30)
[2017-07-10] MEDS ORDERED: NURSING VERBAL MED ORDER ONE (18:45)
[2017-07-10] MEDS: CYCLOBENZAPRINE HCL 10 MG TAB PO PRN (19:08)
[2017-07-10] MEDS ORDERED: CALAMINE/PRAMOXINE LOTION 177 APPLN/177 ML BTL EXT PRN (19:15)
[2017-07-10] MEDS: ENOXAPARIN 40 MG/0.4 ML SYR SC SCH (20:42)
[2017-07-11] MEDS: NSS + 20MEQ KCL 1000ML 1,000 ML IV SCH ×3 (01:19→20:50)
[2017-07-11] MEDS: HYDROmorphone INJ 0.5 MG/0.5 ML SYR IV PRN ×5 (02:39→23:09)
[2017-07-11 04:25] VITALS: BP 91/59; PULSE 56; TEMP 36.6; O2SAT 96
[2017-07-11 05:48] LABS: HEMATOCRIT 33.1 % (37-47); MEAN CELL VOLUME 84.9 fL (80-100); MEAN CORPUSCULAR HEMOGLOBIN 28.7 pg (25-34); MEAN CORPUSCULAR HGB CONC 33.8 g/dl (32-36); MEAN PLATELET VOLUME 10.1 fL (7.4-10.4); PLATELET COUNT 207 K/uL (130-400); WHITE BLOOD COUNT 6.32 K/uL (4.8-10.8)
[2017-07-11] MEDS: CYCLOBENZAPRINE HCL 10 MG TAB PO PRN ×2 (06:00→16:43)
[2017-07-11 06:19] LABS: BUN/CREATININE RATIO 27.8 (10-20); CALCIUM 7.8 mg/dl (8.5-10.1); CREATININE 0.53 mg/dl (0.60-1.20); POTASSIUM 3.9 mmol/L (3.5-5.1)
[2017-07-11 07:51] VITALS: BP 103/69; PULSE 52; TEMP 36.7; O2SAT 96
[2017-07-11] MEDS ORDERED: IBUPROFEN 600 MG TAB PO PRN (08:15)
[2017-07-11 11:09] VITALS: BP 102/69; PULSE 55; TEMP 36.5; O2SAT 96
[2017-07-11] MEDS ORDERED: RIZATRIPTAN BENZOATE 10 MG TAB PO ONE (11:45)
[2017-07-11] MEDS: ACYCLOVIR 400 MG TAB PO SCH ×2 (12:58→20:51)
[2017-07-11 15:27] LABS: EBV EARLY ANTIGEN AB <9.00 U/ML
[2017-07-11 15:32] VITALS: BP 92/58; PULSE 56; TEMP 36.6; O2SAT 95
--- NOTE | 2017-07-11 15:54 | Medical Student: [facility] ---
Med Student Progress Note Date of Service Jul 11, 2017. Subjective Pt evaluation today including: conversation w/ patient, conversation w/ family , physical exam, lab review PT slept well yesterday afternoon and last night after receiving the Flexeril. She notes that she woke up with a headache today, it started behind her right eye and spread throughout the rest of her head, 5/10 pain that has not been relieved. She is eating and drinking more. Less neck stiffness continues without fever or leukocytosis. Review of Systems Constitutional: No fever, No chills, No sweats, No weakness Eyes: No eye pain ENT: No hearing loss, No nasal symptoms, No sore throat, No tinnitus Respiratory: No cough, No sputum, No wheezing Cardiac: No chest pain, No palpitations Abdomen: No pain, No nausea, No vomiting, No diarrhea, No constipation Musculoskeletal: No joint pain, No swelling Female : No dysuria, No urinary frequency Neurologic: No paralysis, No numbness/tingling, No vertigo Skin: No rash, No itch Objective Vital Signs Date Time Temp Pulse Resp B/P (MAP) Pulse Ox O2 Delivery O2 Flow Rate FiO2 07/11/17 15:32 36.6 56 18 92/58 (69) 95 Room Air 07/11/17 12:17 Room Air 07/11/17 11:09 36.5 55 20 102/69 (80) 96 Room Air 07/11/17 08:10 Room Air 07/11/17 07:51 36.7 52 20 103/69 (80) 96 Room Air 07/11/17 04:25 36.6 56 18 91/59 (70) 96 Room Air 07/11/17 04:00 Room Air 07/11/17 00:00 Room Air 07/10/17 23:41 36.7 62 16 93/50 (64) 93 Room Air 07/10/17 20:00 Room Air 07/10/17 16:00 94 Room Air Physical Exam General Appearance: WD/WN, no apparent distress ENT: pharynx normal Neck: no adenopathy, thyroid normal, no JVD Respiratory/Chest: lungs clear, normal breath sounds, no respiratory distress Cardiovascular: regular rate, rhythm, no edema, no murmur Abdomen: normal bowel sounds, non tender, soft, no organomegaly Extremities: normal inspection, no pedal edema, no calf tenderness Neurologic/Psychiatric: alert, normal mood/affect, oriented x 3 Skin: normal color, warm/dry, no rash Laboratory Results Last 24 Hours Test 07/11/17 05:09 White Blood Count 6.32 K/uL Red Blood Count 3.90 M/uL Hemoglobin 11.2 g/dL Hematocrit 33.1 % Mean Corpuscular Volume 84.9 fL Mean Corpuscular Hemoglobin 28.7 pg Mean Corpuscular Hemoglobin Concent 33.8 g/dl RDW Standard Deviation 40.4 fL RDW Coefficient of Variation 13.1 % Platelet Count 207 K/uL Mean Platelet Volume 10.1 fL Sodium Level 143 mmol/L Potassium Level 3.9 mmol/L Chloride Level 111 mmol/L Carbon Dioxide Level 27 mmol/L Anion Gap 5.0 mmol/L Blood Urea Nitrogen 15 mg/dl Creatinine 0.53 mg/dl Est Creatinine Clear Calc Drug Dose 158.1 ml/min Estimated GFR () 137.7 Estimated GFR (Non- 118.8 BUN/Creatinine Ratio 27.8 Random Glucose 98 mg/dl Calcium Level 7.8 mg/dl Assessment and Plan Assessment and Plan: Patient is a 42 yo female with PMH significant for asthma, allergies and IBS. She has had a 6 day h/o severe headache, neck stiffness, fever. Viral Meningitis - improved neck ROM. Headaches continue. -LP unremarkable for WBCs thus do not suspect bacterial meningitis. Pt has also been afebrile. D/c antibiotics, decadron. -Daughter had recent "flu-like" illness, patient works in [employer]. Suspect Viral meningitis. -Monospot test is negative. -Lyme serology is negative. -Blood and CSF cxs NGTD. -Throat swab negative for Strep. -Continue Dilaudid 0.5 mg q 4 hrs PRN pain -Appetite improved - decrease NSS to 75 cc/hr. Continue to monitor BP and HR. -Anticipate with time and supportive care pt will improve. -Normal WBC count today -Flexeril 10mg q 8 hrs PRN for neck tightness/pain -Add Maxalt 10 mg for PRASAD. Asthma - Controlled. -Has albuterol inhaler for PRN basis. Has not used in months. Allergies - Controlled. -Uses Zyrtec on PRN basis. DVT prophylaxis: Lovenox 40 mg q day Code Status: FULL RESUSCITATION STATUS Dispo: Remain on Medical floor. Continued [facility] stay due to: inadequate oral pain control Discharge planning: home
--- NOTE | 2017-07-11 16:05 | Progress Note ---
Subjective Date of Service: Jul 11, 2017. Subjective Pt evaluation today including: conversation w/ patient, physical exam, lab review, review of inpatient medication list Pain: headache 5 out of 10 PO Intake: adequate Voiding: no voiding problems patient feeling and looking better today, sitting up more in bed, working on laptop headache 5 out of 10 less neck stiffness with Flexeril, sleeping better gave a dose of Maxalt since headache seemed like it could be migraine, worked well no fevers during admission labs reviewed, WBC 6, Hb 11, Cr stable Problem List Medical Problems: (1) Fever Status: Acute (2) Headache Status: Acute Review of Systems Constitutional: + weakness, + fatigue, + problem reported (headache, moderate to severe at times) Abdomen: + nausea All Other Systems: Reviewed and Negative Medications Current Inpatient Medications Medications (Trade) Dose Ordered Sig/Junaid Route Start Time Stop Time Status Last Admin Dose Admin Enoxaparin Sodium (Lovenox Inj) 40 mg HS SC 07/09/17 21:00 08/08/17 20:59 07/10/17 20:42 40 MG Potassium Chloride/Sodium Chloride 1,000 ml @ 75 mls/hr [id number] IV 07/09/17 17:30 08/08/17 17:29 07/11/17 09:39 125 MLS/HR Acetaminophen (Tylenol Tab) 650 mg Q4H PRN PO 07/09/17 15:15 08/08/17 15:14 07/10/17 05:05 650 MG Al Hydrox/Mg Hydrox/Simethicone (Maalox Max Susp) 15 ml Q4H PRN PO 07/09/17 15:15 08/08/17 15:14 Magnesium Hydroxide (Milk Of Magnesia Susp) 30 ml Q12H PRN PO 07/09/17 15:15 08/08/17 15:14 Ondansetron HCl (Zofran Inj) 4 mg Q6H PRN IV 07/09/17 15:15 08/08/17 15:14 Polyethylene (Miralax Powder Packet) 17 gm DAILY PRN PO 07/09/17 15:15 08/08/17 15:14 Hydromorphone HCl (Dilaudid Inj) 0.5 mg Q4H PRN IV 07/09/17 15:15 07/23/17 15:14 07/11/17 10:37 0.5 MG Cyclobenzaprine HCl (Flexeril Tab) 10 mg Q8 PRN PO 07/10/17 16:45 08/09/17 16:44 07/11/17 06:00 10 MG Calamine/Pramoxine (Caladryl Lotion) 1 appln TID PRN EXT 07/10/17 19:15 08/09/17 19:14 07/10/17 19:37 1 APPLN Ibuprofen (Motrin Tab) 600 mg QID PRN PO 07/11/17 08:15 08/10/17 08:14 07/11/17 08:41 600 MG Acyclovir (Zovirax Tab) 400 mg TID PO 07/11/17 14:00 07/21/17 13:59 07/11/17 12:58 400 MG Objective Vital Signs Date Time Temp Pulse Resp B/P (MAP) Pulse Ox O2 Delivery O2 Flow Rate FiO2 07/11/17 15:32 36.6 56 18 92/58 (69) 95 Room Air 07/11/17 12:17 Room Air 07/11/17 11:09 36.5 55 20 102/69 (80) 96 Room Air 07/11/17 08:10 Room Air 07/11/17 07:51 36.7 52 20 103/69 (80) 96 Room Air 07/11/17 04:25 36.6 56 18 91/59 (70) 96 Room Air 07/11/17 04:00 Room Air 07/11/17 00:00 Room Air 07/10/17 23:41 36.7 62 16 93/50 (64) 93 Room Air 07/10/17 20:00 Room Air Physical Exam General Appearance: WD/WN, no apparent distress Eyes: normal inspection, EOMI, sclerae normal Neck: supple, no adenopathy, no JVD, trachea midline Respiratory/Chest: chest non-tender, lungs clear, normal breath sounds, no respiratory distress, no accessory muscle use Cardiovascular: regular rate, rhythm, no edema, no gallop, no JVD, no murmur Abdomen: normal bowel sounds, non tender, soft, no organomegaly Extremities: normal range of motion, non-tender, normal inspection, no pedal edema, no calf tenderness, pelvis stable Neurologic/Psychiatric: [employer] II-XII nml as tested, no motor/sensory deficits, alert, normal mood/affect, oriented x 3 Skin: normal color, warm/dry, no rash Lymphatic: no adenopathy Laboratory Results Last 24 Hours Test 07/11/17 05:09 White Blood Count 6.32 K/uL Red Blood Count 3.90 M/uL Hemoglobin 11.2 g/dL Hematocrit 33.1 % Mean Corpuscular Volume 84.9 fL Mean Corpuscular Hemoglobin 28.7 pg Mean Corpuscular Hemoglobin Concent 33.8 g/dl RDW Standard Deviation 40.4 fL RDW Coefficient of Variation 13.1 % Platelet Count 207 K/uL Mean Platelet Volume 10.1 fL Sodium Level 143 mmol/L Potassium Level 3.9 mmol/L Chloride Level 111 mmol/L Carbon Dioxide Level 27 mmol/L Anion Gap 5.0 mmol/L Blood Urea Nitrogen 15 mg/dl Creatinine 0.53 mg/dl Est Creatinine Clear Calc Drug Dose 158.1 ml/min Estimated GFR () 137.7 Estimated GFR (Non- 118.8 BUN/Creatinine Ratio 27.8 Random Glucose 98 mg/dl Calcium Level 7.8 mg/dl Assessment and Plan 42 y/o female with a history of asthma, allergies, and IBS who presented to the ED on 07/09 with severe headache, fevers, and neck stiffness. Pt afebrile, VSS on arrival. Head CT and CXR show no acute disease. EKG significant for inferior T wave inversions. Labs grossly unremarkable. Lumbar puncture attempted 2x in ED, unsuccessful. Severe headache, neck stiffness, fevers prior to admission suspected meningitis, likely viral given daughter had similar symptoms a week prior no evidence of bacterial meningitis on CSF, stopped Vancomycin, Rocephin and Decadron on day 2 some of headache and neck pain due to paraspinal muscle tenderness, relief with Flexeril 10mg, continue q8 PRN Maxalt 10mg x 1 gave relief as well add Ultram PRN to see if we can control PRASAD with oral agents, avoid Dilaudid IV try to d/c home tomorrow no fevers during admission CSF cultures clear, mono, EBV, influenza negative H/o asthma--pt has prn albuterol inhaler but has not needed for several months H/o allergies--pt had been taking Zyrtec and Zantac but has not needed for several months DVT prophylaxis -Enoxaparin 40 mg SC q24h -JESSICA barkley and Annabelle Code Status -Level I, FULL RESUSCITATION STATUS Continued [facility] stay due to: inadequate oral pain control Discharge planning: home
[2017-07-11] MEDS ORDERED: TRAMADOL HCL 50 MG TAB PO PRN (16:15)
[2017-07-11 19:42] VITALS: BP 92/61; PULSE 69; TEMP 36.6; O2SAT 95
[2017-07-11] MEDS: ENOXAPARIN 40 MG/0.4 ML SYR SC SCH (20:51)
[2017-07-11 23:31] VITALS: BP 89/55; PULSE 67; TEMP 37; O2SAT 95
[2017-07-12] MEDS: HYDROmorphone INJ 0.5 MG/0.5 ML SYR IV PRN (04:00)
[2017-07-12 04:16] VITALS: BP 86/50; PULSE 61; TEMP 36.7; O2SAT 93
[2017-07-12 05:41] LABS: HEMATOCRIT 34.5 % (37-47); MEAN CELL VOLUME 85.8 fL (80-100); MEAN CORPUSCULAR HEMOGLOBIN 28.1 pg (25-34); MEAN CORPUSCULAR HGB CONC 32.8 g/dl (32-36); MEAN PLATELET VOLUME 9.5 fL (7.4-10.4); PLATELET COUNT 253 K/uL (130-400); RED BLOOD COUNT 4.02 M/uL (4.2-5.4); WHITE BLOOD COUNT 6.35 K/uL (4.8-10.8)
[2017-07-12 06:05] LABS: BUN/CREATININE RATIO 26.5 (10-20); CALCIUM 7.4 mg/dl (8.5-10.1); CREATININE 0.48 mg/dl (0.60-1.20); POTASSIUM 3.7 mmol/L (3.5-5.1)
[2017-07-12 07:30] VITALS: BP 93/55; PULSE 55; TEMP 36.4; O2SAT 97
[2017-07-12] MEDS: ACYCLOVIR 400 MG TAB PO SCH (08:45)
[2017-07-12] MEDS: CYCLOBENZAPRINE HCL 10 MG TAB PO PRN (09:29)
[2017-07-12] MEDS ORDERED: FLX10 PO (10:28)
[2017-07-12] MEDS ORDERED: ZVR400 PO (10:28)
[2017-07-12] MEDS ORDERED: OXYC-57 PO (10:28)
[2017-07-12] MEDS ORDERED: RIZA10TA18 PO (10:28)
--- NOTE | 2017-07-12 10:35 | Discharge Instructions ---
Discharge Instructions Date of Service Jul 12, 2017. Admission Reason for Admission: Fever; Headache Discharge Discharge Diagnosis / Problem: Viral meningitis Discharge Goals Goal(s): Decrease discomfort, Improve function Activity Recommendations Activity Limitations: per Instructions/Follow-up section Lifting Limitations: none Exercise/Sports Limitations: as tolerated May Resume Sexual Activity: when tolerated Shower/Bathe: no limitations Driving or Machine Use: no driving after taking Flexeril or Percocet . Instructions / Follow-Up Instructions / Follow-Up Medications: - FLEXERIL: take as needed for neck and muscle pain, will make you drowsy so do not drive after taking - MAXALT: use once a day as needed for headache - ACYCLOVIR: finish 4 more days, this covers herpes simplex virus - PERCOCET: only get script filled if headache not controlled with other medications described below Viral meningitis with severe headache: infection seems to be resolved, no fevers during admission, headache improving as we discussed, viral illnesses are self limiting and treatment is just supportive care will cover you for herpes since you have a strong history of these infections , 4 more days for headache, use Tylenol 1000mg three times a day, Ibuprofen 600mg four times a day with food use Flexeril as needed for any muscle pain as this can be contributing to headache if you still have headache, take a Maxalt tablet Percocet will be available if the above measures are not enough if you have to take Percocet, do not take any more Tylenol that day get rest, stay well hydrated FOLLOW UP - Jojo Bowie in 5-7 days, call to schedule a hospital follow up appointment Current Hospital Diet Patient's current hospital diet: Regular Diet Discharge Diet Recommended Diet: Regular Diet Pending Studies Studies pending at discharge: no Work Instructions Return To Work: 1 week Medical Emergencies . Who to Call and When: Medical Emergencies: If at any time you feel your situation is an emergency, please call 911 immediately. . Non-Emergent Contact Non-Emergency issues call your: Primary Care Provider Call Non-Emergent contact if: you have a fever, your pain is not controlled, your pain is worsening, you have any medication questions . . "Provider Documentation" section prepared by Jean Marai. . VTE Core Measure Inpt VTE Proph given/why not?: Enoxaparin (Lovenox)[facility], Delfino Webb, SCD's [place] Drug Monitoring Program Search Results: no issues identified
[2017-07-12] MEDS: NSS + 20MEQ KCL 1000ML 1,000 ML IV SCH (10:45)
[2017-07-12 11:18] VITALS: BP 88/50; PULSE 66; TEMP 36.8; O2SAT 94
[2017-07-12 11:26] VITALS: BP 88/50; PULSE 66; TEMP 36.8; O2SAT 94
--- NOTE | 2017-07-12 13:29 | Medical Student: [facility] ---
Discharge Summary Admission Date: Jul 09, 2017 at 15:15 Discharge Date: Jul 12, 2017 Discharge Disposition: Home Principal Diagnosis: Viral Meningitis Immunizations: Have You Had Influenza Vaccine: Unknown History of Tetanus Vaccine?: Unknown History of Pneumococcal: Unknown History of Hepatitis B Vaccine: Unknown Procedures: Fluoroscopy Guided LP Medications: New Medications: Acyclovir 400 mg take 1 tab 3x daily for HSV outbreak Maxalt 10 mg take one tablet q day for Headache Flexeril 10 mg take 1 pill q 8 hrs PRN for neck pain Percocet 5/325 take one pill q 12 hrs prn for SEVERE pain uncontrolled with ibuprofen, Tylenol and Maxalt. Discharge Exam Review of Systems: Constitutional: No fever, No chills, No sweats, No weakness Eyes: No eye pain ENT: No hearing loss Respiratory: No cough, No sputum, No wheezing, No shortness of breath Cardiovascular: No chest pain, No palpitations Abdomen: No pain, No nausea, No vomiting, No diarrhea, No constipation Musculoskeletal: + muscle pain (cervical paraspinal muscles and trap muscles. ) Genitourinary - Female: No dysuria, No urinary frequency Neurologic: No paralysis, No weakness, No numbness/tingling, No vertigo Integumentary: No rash, No itch Physical Exam: General Appearance: WD/WN, no apparent distress Eyes: PERRL, EOMI Neck: supple, no adenopathy, no JVD Respiratory/Chest: lungs clear, normal breath sounds Cardiovascular: regular rate, rhythm, no murmur Abdomen / GI: normal bowel sounds, non tender, soft, no organomegaly Extremities: no calf tenderness, no pedal edema, normal range of motion Neurologic/Psychiatric: no motor/sensory deficits, alert, normal mood/affect , oriented x 3 Skin: normal color, warm/dry Hospital Course Pt was admitted on 07/09 with 3 day history of fever, headache, neck pain/ stiffness. She was started on ppx abx, which were later stopped when the csf fluid showed no bacterial menigitis. She was treated supportively with IVF, maxalt, flexiril and dilaudid for severe headaches. Her headache, neck pain and photophobia improved with time and she was discharged home on Maxalt, Acyclovir , Flexeril and pain medication for suspected viral meningitis. Her head ct and CXR were negative for any acute process. Total Time Spent: Less than 30 minutes This includes examination of the patient, discharge planning, medication reconciliation, and communication with other providers. Discharge Instructions Please refer to the electronic Patient Visit Report (Discharge Instructions) for additional information. Follow-Up Take new medications as perscribed. Only take the percocet if having severe pain. Follow-up with your family doctor in 5-7 days.
[2017-07-12 15:56] LABS: 18KDIGG BAND NONREACTIVE (NONREACTIVE); 23KDIGG BAND NONREACTIVE (NONREACTIVE); 23KDIGM BAND NONREACTIVE (NONREACTIVE); 28KDIGG BAND NONREACTIVE (NONREACTIVE); 30KDIGG BAND NONREACTIVE (NONREACTIVE); 39KDIGG BAND NONREACTIVE (NONREACTIVE); 39KDIGM BAND NONREACTIVE (NONREACTIVE); 41KDIGG BAND NONREACTIVE (NONREACTIVE); 41KDIGM BAND NONREACTIVE (NONREACTIVE); 45KDIGG BAND NONREACTIVE (NONREACTIVE); 58KDIGG BAND NONREACTIVE (NONREACTIVE); 66KDIGG BAND NONREACTIVE (NONREACTIVE); 93KDIGG BAND NONREACTIVE (NONREACTIVE)
--- NOTE | 2017-07-12 16:56 | Discharge Summary ---
Discharge Summary Date of Service Jul 12, 2017. Discharge Summary Admission Date: Jul 09, 2017 at 15:15 Discharge Date: Jul 12, 2017 Discharge Disposition: Home Principal Diagnosis: Viral meningitis causing headache Problems/Secondary Diagnoses: Herpes simplex outbreak Immunizations: Have You Had Influenza Vaccine: Unknown History of Tetanus Vaccine?: Unknown History of Pneumococcal: Unknown History of Hepatitis B Vaccine: Unknown Procedures: Lumbar puncture under fluoroscopy Consultations: none Medication Reconciliation New Medications: Oxycodone/Acetaminophen 5MG/325MG (Percocet 5MG/325MG) Tab 1 TABLET PO Q12 PRN for Headache, #6 TAB PAIN Rizatriptan Benzoate (Maxalt) 10 Mg Tab 10 MG PO DAILY PRN for Headache, #10 TAB Acyclovir (Acyclovir) 400 Mg Tab 400 MG PO TID for 4 Days, #12 TAB 0 Refills Cyclobenzaprine HCl (Cyclobenzaprine HCl) 10 Mg Tab 10 MG PO Q8 PRN for neck pain, #15 TAB 0 Refills Continued Medications: Ibuprofen (Advil) 200 Mg Tab 200-600 MG PO Q4H, TAB Discharge Exam patient feeling better, headache down to 3-4 out of 10, eating better, sleeping well. Discussed plan for discharge on Tylenol, Ibuprofen, Flexeril, Maxalt and use Percocet for breakthrough. Off work the rest of the week. She will follow up with PCP. Review of Systems: Constitutional: + weakness, + fatigue, + problem reported (headache) Eyes: No worsening of vision, No eye pain, No redness, No discharge, No diplopia, No problem reported ENT: No hearing loss, No unusual epistaxis, No nasal symptoms, No sore throat, No tinnitus, No dental problems, No trouble swallowing, No problem reported Respiratory: No cough, No sputum, No wheezing, No shortness of breath, No dyspnea on exertion, No dyspnea at rest, No hemoptysis, No problem reported Cardiovascular: No chest pain, No orthopnea, No PND, No edema, No claudication, No palpitations, No problem reported Abdomen: No pain, No nausea, No vomiting, No diarrhea, No constipation, No GI bleeding, No problem reported Musculoskeletal: No joint pain, No muscle pain, No swelling, No calf pain, No problem reported Genitourinary - Female: No dysuria, No urinary frequency, No urinary urgency , No urinary incontinence Neurologic: No memory loss, No paralysis, No weakness, No numbness/tingling , No vertigo, No balance problems, No problem reported Psychiatric: No depression symptoms, No anhedonism, No anxiety, No insomnia , No substance abuse, No problem reported Endocrine: No fatigue, No excessive thirst, No excessive urination, No problem reported Hematologic / Lymphatic: No abnormal bleeding/bruising, No clotting problems , No swollen lymph nodes, No night sweats, No problem reported Integumentary: No rash, No itch, No new/changing skin lesions, No color change, No bleeding, No problem reported Physical Exam: General Appearance: WD/WN, no apparent distress Eyes: normal inspection, EOMI, sclerae normal ENT: normal ENT inspection, hearing grossly normal, pharynx normal Neck: no adenopathy, no JVD, trachea midline, + pertinent finding ( paraspinal tenderness, increased tension) Respiratory/Chest: chest non-tender, lungs clear, normal breath sounds, no respiratory distress, no accessory muscle use Cardiovascular: regular rate, rhythm, no edema, no gallop, no JVD, no murmur , normal peripheral pulses Abdomen / GI: normal bowel sounds, non tender, soft, no organomegaly Extremities: normal inspection, no calf tenderness, normal capillary refill , no pedal edema, normal range of motion, pelvis stable Neurologic/Psychiatric: schedule planning 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 II-XII nml as tested, no motor/sensory deficits , alert, normal mood/affect, normal reflexes, oriented x 3 Skin: normal color, warm/dry, no rash Hospital Course 42 y/o female with a history of asthma, allergies, and IBS who presented to the ED on 07/09 with severe headache, fevers, and neck stiffness Severe headache, neck stiffness, fevers prior to admission suspect meningitis, likely viral given daughter had similar symptoms a week prior no evidence of bacterial meningitis on CSF, stopped Vancomycin, Rocephin and Decadron on day 2 some of headache and neck pain due to paraspinal muscle tenderness, relief with Flexeril 10mg, continue q8 PRN Maxalt 10mg x 1 gave relief as well no fevers during admission CSF cultures clear, mono, EBV, influenza negative d/c home on Tylenol, Motrin, Flexeril PRN and Maxalt PRN script given for Percocet if needed rest, stay well hydrated, off work the rest of the week H/o asthma--pt has prn albuterol inhaler but has not needed for several months H/o allergies--pt had been taking Zyrtec and Zantac but has not needed for several months DVT prophylaxis -Enoxaparin 40 mg SC q24h -JESSICA guevarasarah and SCDs Code Status -Level I, FULL RESUSCITATION STATUS Total Time Spent: Greater than 30 minutes This includes examination of the patient, discharge planning, medication reconciliation, and communication with other providers. Discharge Instructions Please refer to the electronic Patient Visit Report (Discharge Instructions) for additional information. Follow-Up Jojo LONDON in one week Additional Copies To Jojo Bowie C.R.N.P.
[2017-07-14 08:37] LABS: LYME IGG CSF NO BANDS DETECTED; LYME IGM CSF NO BANDS DETECTED
== END 2017-07-12 11:49 | disposition home or self-care (01) | DRG 76 ==
LOC: C.EDB 09:39 → C.MED 15:15 → ENRESERV 15:46
PROVIDERS: ADMIT Hospitalist; ATTEND Internal Medicine
PROC: 009U3ZX Drainage of Spinal Canal, Percutaneous Approach, Diagnostic (ICD-10-PCS; principal; 2017-07-09)
DX: A87.9 Viral meningitis, unspecified (principal); J45.909 Unspecified asthma, uncomplicated; M19.90 Unspecified osteoarthritis, unspecified site; K58.9 Irritable bowel syndrome, unspecified

== ENCOUNTER 2017-10-29 10:01 | Emergency (ER) | payer OTHER, BC ==
[~2017-10-29] VITALS: Ht 167.6 cm; Wt 89.3 kg
[~2017-10-29 10:01] MED LIST changes: +FLX10 PO; +IBUP-1050 PO; -NAPR-1169 PO; +OXYC-57 PO; +RIZA10TA18 PO; -ZOLP5TAB PO; +ZVR400 PO
[2017-10-29 10:20] VITALS: TEMP 36.4; Ht 167.6 cm; Wt 89.3 kg
[2017-10-29] MEDS ORDERED: CETI10TA99 PO (10:42)
[2017-10-29] MEDS ORDERED: RANI150T3 PO (10:42)
[2017-10-29] MEDS ORDERED: RIZA10TA18 PO (10:45)
[2017-10-29] MEDS ORDERED: ALBUT/IPRATROP 3MG/0.5MG NEB 3 ML VIAL INH STA (11:22)
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
--- NOTE | 2017-10-29 11:49 | DIAGNOSTIC IMAGING REPORT ---
CHEST ONE VIEW PORTABLE CLINICAL HISTORY: 42 years-old Female presenting with CHEST PAIN. TECHNIQUE: Portable upright AP view of the chest was obtained. COMPARISON: 07/09/2017. FINDINGS: Cardiomediastinal silhouette normal. Lungs and pleural spaces clear. Osseous structures normal. Upper abdomen normal. IMPRESSION: 1. No acute cardiopulmonary disease. Electronically signed by: Adair Parks M.D. 10/29/2017 11:47 AM Dictated Date/Time: 10/29/2017 11:46 AM
[2017-10-29 11:52] LABS: BASO % 0.1 %; BASO ABS # 0.01 K/uL (0-0.2); EOS % 0.9 %; EOS ABS # 0.06 K/uL (0-0.5); HEMATOCRIT 39.9 % (37-47); HEMOGLOBIN 13.5 g/dL (12.0-16.0); IG# 0.01 K/uL (0.00-0.02); LYMPH % 37.1 %; LYMPH ABS # 2.58 K/uL (1.2-3.4); MEAN CELL VOLUME 85.8 fL (80-100); MEAN CORPUSCULAR HGB CONC 33.8 g/dl (32-36); MEAN PLATELET VOLUME 9.6 fL (7.4-10.4); MONO ABS # 0.56 K/uL (0.11-0.59); NEUT % 53.8 %; NEUT ABS # 3.74 K/uL (1.4-6.5); PLATELET COUNT 315 K/uL (130-400); RED CELL DISTRIBUTION WIDTH SD 40.7 fL (36.4-46.3); WHITE BLOOD COUNT 6.96 K/uL (4.8-10.8)
[2017-10-29 12:10] LABS: CALCIUM 8.7 mg/dl (8.5-10.1); CREATININE 0.75 mg/dl (0.60-1.20); POTASSIUM 3.3 mmol/L (3.5-5.1)
[2017-10-29] MEDS ORDERED: ACETAMINOPHEN 325 MG TAB ONE (12:16)
[2017-10-29 12:19] VITALS: BP 126/78; PULSE 84; O2SAT 95
[2017-10-29] MEDS ORDERED: METHYLPREDNISOLONE 125 MG VIAL IV STA (12:43)
[2017-10-29] MEDS ORDERED: ALBUTEROL HFA 8 GM INHALER INH ONE (12:45)
[2017-10-29] MEDS ORDERED: PRED50TA PO (12:47)
== END 2017-10-29 12:53 | disposition home or self-care (01) ==
LOC: C.EDB 10:03 → C.EDA 12:53
DX: J45.901 Unspecified asthma with (acute) exacerbation (principal); X08.8XXA Exposure to other specified smoke, fire and flames, initial encounter; M19.90 Unspecified osteoarthritis, unspecified site; K58.9 Irritable bowel syndrome, unspecified; Z80.9 Family history of malignant neoplasm, unspecified; Z83.3 Family history of diabetes mellitus; Z82.49 Family history of ischemic heart disease and other diseases of the circulatory system

== ENCOUNTER → 2018-01-04 | Outpatient (CLI) | payer OTHER, BC ==
[~2018-01-04] MED LIST changes: +CETI10TA99 PO; -FLX10 PO; -IBUP-1050 PO; -OXYC-57 PO; +PRED50TA PO; +RANI150T3 PO; -ZVR400 PO
--- NOTE | 2018-01-04 18:20 | DIAGNOSTIC IMAGING REPORT ---
AP VIEW OF BILATERAL KNEES AND 2 VIEWS OF THE RIGHT KNEE CLINICAL HISTORY: RIGHT KNEE PAIN COMPARISON STUDY: None. FINDINGS: No fracture or dislocation. Soft tissues are unremarkable. No significant knee effusion. Cartilage spaces are maintained for age. IMPRESSION: No significant abnormality within the right knee. Electronically signed by: Jose Roberto Durham M.D. 01/04/2018 6:19 PM Dictated Date/Time: 01/04/2018 6:17 PM
== END | disposition home or self-care (01) ==
LOC: C.RAD 17:07
PROVIDERS: ATTEND Student in an Organized Health Care Education/Training Program
DX: M25.561 Pain in right knee (principal)

== ENCOUNTER → 2018-01-09 | Outpatient (CLI) | payer OTHER, BC | END | disposition home or self-care (01) | LOC: C.RDSM 14:30 | PROVIDERS: ATTEND Orthopaedic Surgery | DX: M25.561 Pain in right knee (principal); M25.562 Pain in left knee ==

== ENCOUNTER 2018-11-13 22:38 | Inpatient (IN) ==
[2018-11-13] MEDS ORDERED: KETOROLAC TROMETHAMINE 15 MG/ML VIAL IV STA (23:18)
--- NOTE | 2018-11-13 23:27 | Emergency Department Note ---
History of Present Illness General Chief complaint: Chest Pain Stated complaint: RT SIDE CHEST PAIN INTO BACK, RT ARM PAIN History of Present Illness Maximum Pain Intensity: 8 This 43-year-old presents to the ER complaining of chest pain Location: Right-sided chest Quality: Achy Severity: Moderate Duration: Tonight Timing: Tonight Context: Patient was concerned and came in Modifying factors: better with nothing; worse with nothing Patient also feels slightly nauseous with this. She has traveled recently. Her mother has heart disease in her 50s. No prior heart testing. Patient denies exertional chest pain, dyspnea, abdominal pain, back pain, urinary symptoms, flulike illness. Patient had some lower abdominal pain earlier today that is now resolved. Home Medications Home Medications Medication Instructions Recorded Confirmed Type No Known Home Medications 11/13/18 11/13/18 History Allergies Allergy/AdvReac Type Severity Reaction Status Date / Time Penicillins Allergy Intermediate HIVES Verified 11/13/18 23:23 ENVIROMENTAL Allergy Severe SNEEZING Uncoded 11/13/18 23:23 /ITCHY EYES/ MILD ASTHMA Past Med/Surg History Medical History No acute medical problems Social History Feels Safe at Home: Yes Smoking Status: Never smoker Review of Systems All systems reviewed & are unremarkable except as noted in HPI & below Physical Exam Vital Signs Vital Signs - 24 hr 11/13/18 22:44 11/13/18 23:11 11/13/18 23:31 Temperature 36.5 C Temperature Source Oral Sepsis Recent Fever Within 48 Hours No Sepsis Action Taken by Nursing No Action Required Pulse Rate 88 86 83 Pulse Rhythm Regular Pulse Strength Normal Respiratory Rate 18 24 16 Respiratory Effort / Characteristics Non-Labored Respiratory Depth Normal Respiratory Pattern Regular Blood Pressure 142/86 H 144/91 H 112/75 Blood Pressure Mean 104 108 87 Blood Pressure Position Lying Pulse Oximetry 95 99 97 Oxygen Delivery Method Room Air Room Air Room Air 11/14/18 00:31 11/14/18 01:00 11/14/18 01:30 Temperature Temperature Source Sepsis Recent Fever Within 48 Hours Sepsis Action Taken by Nursing Pulse Rate 78 79 79 Pulse Rhythm Pulse Strength Respiratory Rate 12 19 13 Respiratory Effort / Characteristics Respiratory Depth Respiratory Pattern Blood Pressure 102/64 110/65 113/74 Blood Pressure Mean 76 80 87 Blood Pressure Position Pulse Oximetry 99 98 97 Oxygen Delivery Method Room Air Room Air Room Air 11/14/18 02:01 Temperature Temperature Source Sepsis Recent Fever Within 48 Hours Sepsis Action Taken by Nursing Pulse Rate 83 Pulse Rhythm Pulse Strength Respiratory Rate 19 Respiratory Effort / Characteristics Respiratory Depth Respiratory Pattern Blood Pressure 105/76 Blood Pressure Mean 85 Blood Pressure Position Pulse Oximetry 97 Oxygen Delivery Method Room Air VITALS: Vitals are noted on the nurse's note and reviewed by myself. Vital signs stable. GENERAL: White female, in no acute distress, nondiaphoretic, well-developed well -nourished. SKIN: The skin was without rashes, erythema, edema, or bruising. There is no tenting of the skin. Capillary reflex less than 2 seconds. HEAD: Normocephalic atraumatic. EARS: External auditory canals clear, tympanic membranes pearly gonzalez without erythema or effusion bilaterally. EYES: Pupils equal round and reactive to light and accommodation. Conjunctivae without injection, sclerae without icterus. Extraocular movements intact. NOSE: Patent, turbinates without inflammation or discharge. MOUTH: Mucous membranes moist. Pharynx without erythema or exudate. Uvula midline. Airway patent. Tongue does not deviate. NECK: Supple without nuchal rigidity. No lymphadenopathy. No thyromegaly. Cervical spine is nontender. No JVD. HEART: Regular rate and rhythm, right-sided chest tender to palpation reproducing symptoms LUNGS: Clear to auscultation bilaterally without wheezes, rales or rhonchi. No retractions or accessory muscle use. ABDOMEN: Positive bowel sounds x 4. Normal tympanic percussion. Soft, nontender, without masses or organomegaly. Cason sign negative. No guarding or rebound tenderness. No CVA tenderness MUSCULOSKELETAL: No muscle atrophy, erythema, or edema noted. NEURO: Patient was alert and oriented to person place and time. Normal sensation to light and sharp touch. No focal neurological deficits. Course Administered Medications Ioversol (Optiray 320 125ml) 125 ml IV ONCE PRN PRN Reason: Interaction Checking Stop: 11/18/18 00:31 Last Admin: 11/14/18 00:32 Dose: 108 ml Discontinued Medications Hydromorphone HCl (Dilaudid) 1 mg IV NOW STA Stop: 11/14/18 01:52 Last Admin: 11/14/18 01:58 Dose: 1 mg Sodium Chloride (Nss 1000ml) 1,000 mls @ 999 mls/hr IV .Q1H1M TC Stop: 11/14/18 00:30 Last Infusion: 11/14/18 01:13 Dose: 0 mls/hr Admin: 11/13/18 23:57 Dose: 999 mls/hr Ketorolac Tromethamine (Toradol) 10 mg IV NOW STA Stop: 11/13/18 23:19 Last Admin: 11/13/18 23:57 Dose: 10 mg Morphine Sulfate (Morphine Sulfate) 4 mg IV NOW STA Stop: 11/14/18 00:43 Last Admin: 11/14/18 00:51 Dose: 4 mg Medical Decision Making Medical Records Attestation: I reviewed the patient's medical records. Home Medications Current Medication List: was personally reviewed by me Laboratory Data Attestation: I reviewed the patient's lab results. Result diagrams: 11/13/18 23:20 11/13/18 23:20 Lab Results 11/13/18 11/13/18 11/13/18 Range/Units 23:20 23:20 23:20 WBC 10.66 (4.8-10.8) K/uL RBC 5.02 (4.2-5.4) M/uL Hgb 15.2 (12.0-16.0) g/dL Hct 43.6 (37-47) % MCV 86.9 (80-100) fL MCH 30.3 (25-34) pg MCHC 34.9 (32-36) g/dL RDW Std Deviation 41.5 (36.4-46.3) fL RDW Coeff of Jossy 13.0 (11.5-14.5) % Plt Count 308 (130-400) K/uL MPV 11.0 H (7.4-10.4) fL Immature Gran % (Auto) 0.3 % Neut % (Auto) 52.9 % Lymph % (Auto) 38.2 % [place] % (Auto) 7.3 % Eos % (Auto) 1.2 % Baso % (Auto) 0.1 % Immature Gran # (Auto) 0.03 H (0.00-0.02) K/uL Neut # (Auto) 5.64 (1.4-6.5) K/uL Lymph # (Auto) 4.07 H (1.2-3.4) K/uL [place] # (Auto) 0.78 H (0.11-0.59) K/uL Eos # (Auto) 0.13 (0-0.5) K/uL Baso # (Auto) 0.01 (0-0.2) K/uL POC D-Dimer (0-450) ng/mlFEU Sodium 136 (136-145) mmol/L Potassium (3.5-5.1) mmol/L Chloride 104 (98-107) mmol/L Carbon Dioxide 26 (21-32) mmol/L Anion Gap 6.0 (3-11) BUN 26 H (7-18) mg/dl Creatinine 0.79 (0.6-1.2) mg/dl Est Cr Clr Drug Dosing 100.5 ml/min Est GFR ( Amer) 107.8 Est GFR (Non-Af Amer) 93.0 BUN/Creatinine Ratio 33.3 H (10-20) Glucose 98 (70-99) mg/dl Calcium 8.6 (8.5-10.1) mg/dl Total Bilirubin 0.4 (0.2-1) mg/dl AST (15-37) U/L ALT 32 (12-78) U/L Alkaline Phosphatase 115 (45-117) U/L POC Troponin I (0-0.045) ng/ml Troponin I < 0.015 (0-0.045) ng/ml Total Protein 8.4 H (6.4-8.2) gm/dl Albumin 4.4 (3.4-5.0) gm/dl Globulin 4.0 (2.5-4.0) gm/dl Albumin/Globulin Ratio 1.1 (0.9-2) Lipase 113 (73-393) U/L HCG, Qual Negative (Negative) 11/13/18 Range/Units 23:30 WBC (4.8-10.8) K/uL RBC (4.2-5.4) M/uL Hgb (12.0-16.0) g/dL Hct (37-47) % MCV (80-100) fL MCH (25-34) pg MCHC (32-36) g/dL RDW Std Deviation (36.4-46.3) fL RDW Coeff of Jossy (11.5-14.5) % Plt Count (130-400) K/uL MPV (7.4-10.4) fL Immature Gran % (Auto) % Neut % (Auto) % Lymph % (Auto) % [place] % (Auto) % Eos % (Auto) % Baso % (Auto) % Immature Gran # (Auto) (0.00-0.02) K/uL Neut # (Auto) (1.4-6.5) K/uL Lymph # (Auto) (1.2-3.4) K/uL [place] # (Auto) (0.11-0.59) K/uL Eos # (Auto) (0-0.5) K/uL Baso # (Auto) (0-0.2) K/uL POC D-Dimer > 450 H* (0-450) ng/mlFEU Sodium (136-145) mmol/L Potassium (3.5-5.1) mmol/L Chloride (98-107) mmol/L Carbon Dioxide (21-32) mmol/L Anion Gap (3-11) BUN (7-18) mg/dl Creatinine (0.6-1.2) mg/dl Est Cr Clr Drug Dosing ml/min Est GFR ( Amer) Est GFR (Non-Af Amer) BUN/Creatinine Ratio (10-20) Glucose (70-99) mg/dl Calcium (8.5-10.1) mg/dl Total Bilirubin (0.2-1) mg/dl AST (15-37) U/L ALT (12-78) U/L Alkaline Phosphatase (45-117) U/L POC Troponin I < 0.03 (0-0.045) ng/ml Troponin I (0-0.045) ng/ml Total Protein (6.4-8.2) gm/dl Albumin (3.4-5.0) gm/dl Globulin (2.5-4.0) gm/dl Albumin/Globulin Ratio (0.9-2) Lipase (73-393) U/L HCG, Qual (Negative) MDM Narrative Prior records/ancillary studies reviewed. Triage Nursing notes reviewed. Additional history obtained from family. The patient's history was concerning for chest pain. Differential diagnosis: Etiologies such as cardiac ischemia, aortic dissection, pulmonary embolism, pneumonia, pneumothorax, musculoskeletal, infections, pericarditis, myocarditis , esophageal rupture, gastrointestinal, as well as others were entertained. Physical examination: As above. ER treatment provided: Toradol IV On reassessment the patient felt better. Diagnostic interpretation by me: The electrocardiogram was normal sinus, normal intervals, T wave inversions in the inferior lateral leads, rate of 87. EKG compared to prior EKG with new acute T wave inversions. This is interpreted by myself. I think arrhythmia is unlikely. EKG shows normal sinus rhythm with no interval abnormalities such as QT prolongation or WPW. There are no findings to suggest Brugada syndrome. Cardiac monitoring in the emergency department reveals no tachycardic or bradycardic dysrhythmia. Hypertrophic cardiomyopathy was considered but there are no clear historical elements pointing toward this. EKG is not suggestive. The QRS voltage is not extremely large and there are no suggestive Q waves. The labs revealed negative troponin. Elevated d-dimer Imaging studies: Chest x-ray with no acute consolidation, pneumothorax or free air per my interpretation US RUQ: CTA chest today. Gallbladder sludge. No stones, wall thickening or pericholecystic fluid. No biliary dilation. Pancreas not visualized. Right kidney: Query scarring of the right upper and lower poles with lobular renal contour. Favor scarring over right renal lower pole 1.7 cm masslike area. These areas not visualized on the CT chest today, however scarring was seen on a prior CT chest from 05/12/15. Mild right pelvicaliectasis . Radiologist: Clark De La Rosa M.D. CTA CHEST: Prior study from 05/12/2015. Breathing motion artifact limits evaluation of small peripheral arteries. No PE visualized. Lungs are clear Radiologist: Clark De La Rosa M.D. HEART SCORE: Hx: high/mod/low suspicion: 1 ECG: ST depression/nonspecific changes/normal: 1 Age: Greater than 65/45-64/less than 45: 0 Risk factors: (Hypertension, hyperlipidemia, diabetes, coronary disease, tobacco use, cocaine use): 0 Troponin: Greater than 2 times normal limits/1-2 times normal limits/normal: 0 Total: 2 Consultation: A consultation was placed with the hospitalist, Dr. Small. The case was discussed and diagnostics were reviewed. The patient was evaluated in the ER for further treatment. Exam and history seem consistent with chest pain with an abnormal EKG. Patient will be evaluated by medicine. She was still in pain. Her symptoms could be related to biliary colic. Patient is agreeable to treatment plan of admission. By the evaluation outlined above emergent etiologies such as aortic dissection , pulmonary embolism, pneumonia, pneumothorax, infections, pericarditis, myocarditis, gastrointestinal, as well as others were deemed relatively unlikely. The pt informed about the findings as listed above. All questions were answered and pleased with the treatment. Case reviewed with my attending The chart was completed utilizing [employer] Speech voice recognition software. Grammatical errors, random word insertions, pronoun errors, and incomplete sentences are an occassional consequence of this system due to software limitations, ambient noise, and hardware issues. Any formal questions or concerns about the content, text, or information contained within the body of this dictation should be directly addressed to the physician assistant business manager for clarification. Impression & Plan Chest pain, Biliary colic, Abnormal ECG Discharge Plan Visit Data Chief Complaint: Chest Pain Stated Complaint: RT SIDE CHEST PAIN INTO BACK, RT ARM PAIN ED Provider: Mackenzie Kim ED Midlevel Provider: Mariann Hill Discharge Problem: Chest pain, Biliary colic, Abnormal ECG Patient Disposition: Being Evaluated by Hospitalist Condition: Good Forms Stand Alone Forms: Call Back Authorization, [facility] [employer] Prescriptions Prescriptions: No Action No Known Home Medications RF: 0 Referrals Referrals: Zandra Shi PA-C [Primary Care Provider] -
[2018-11-13] MEDS ORDERED: SODIUM CHLORIDE 0.9% 1000ML 1,000 ML IV SCH (23:30)
[2018-11-13 23:43] LABS: Basophils # (auto) 0.01 K/uL (0-0.2); Basophils % (auto) 0.1 %; Eosinophils # (auto) 0.13 K/uL (0-0.5); Eosinophils % (auto) 1.2 %; Hematocrit (blood only) 43.6 % (37-47); Hemoglobin 15.2 g/dL (12.0-16.0); Immature Granulocytes # (auto) 0.03 K/uL (0.00-0.02); Immature Granulocytes % (auto) 0.3 %; Lymphocytes # (auto) 4.07 K/uL (1.2-3.4); Lymphocytes % (auto) 38.2 %; Mean Corpuscular Hgb Conc 34.9 g/dL (32-36); Mean Corpuscular Volume 86.9 fL (80-100); Monocytes # (auto) 0.78 K/uL (0.11-0.59); Monocytes % (auto) 7.3 %; Neutrophils # (auto) 5.64 K/uL (1.4-6.5); Neutrophils % (auto) 52.9 %; Platelet Count 308 K/uL (130-400); RDW Standard Deviation 41.5 fL (36.4-46.3); Red Blood Count 5.02 M/uL (4.2-5.4); White Blood Count 10.66 K/uL (4.8-10.8)
[2018-11-14 00:05] LABS: Alanine Aminotransferase 32 U/L (12-78); Albumin Globulin Ratio 1.1 (0.9-2); Albumin Level 4.4 gm/dl (3.4-5.0); Alkaline Phosphatase 115 U/L (45-117); BUN Creatinine Ratio 33.3 (10-20); Bilirubin,Total 0.4 mg/dl (0.2-1); Blood Urea Nitrogen 26 mg/dl (7-18); Calcium 8.6 mg/dl (8.5-10.1); Carbon Dioxide 26 mmol/L (21-32); Chloride 104 mmol/L (98-107); Creatinine Clr Calc Pharmacy 100.5 ml/min; Est GFR (African American) 107.8; Glucose 98 mg/dl (70-99); Sodium 136 mmol/L (136-145); Total Protein 8.4 gm/dl (6.4-8.2); Troponin I < 0.015 ng/ml (0-0.045)
[2018-11-14 00:17] LABS: Pregnancy Test, Serum Negative (Negative)
[2018-11-14] MEDS ORDERED: OPTIRAY 320 125ml IV PRN (00:32)
[2018-11-14] MEDS ORDERED: MoRPHine SULFATE 4 MG/ML 1 ML CARP\\VIAL IV STA (00:42)
[2018-11-14] MEDS ORDERED: HYDROmorphone INJ 1 MG/ML SYRINGE IV STA (01:51)
[2018-11-14] MEDS ORDERED: ONDANSETRON INJ 2 MG/ML 2 ML VIAL IV STA (04:01)
[2018-11-14 04:49] LABS: Appearance Urine Clear (Clear); Bilirubin Urine Negative (Negative); Color Urine Yellow; Glucose Urine UA Negative (Negative); Ketones Urine Negative (Negative); Leukocyte Esterase Urine Negative (Negative); Nitrite Urine Negative (Negative); Protein Urine Negative (Negative); Specific Gravity Urine > 1.045 (1.000-1.030); Urobilinogen Urine Negative (Negative)
--- NOTE | 2018-11-14 06:05 | History & Physical Report ---
Date of Service November 14, 2018 Assessment & Plan (1) Biliary colic: Biliary colic with abnormal gallbladder ultrasound showing gallbladder sludge-- Place on Cipro 400 mg IV every 12 hours. NPO NSS + KCl 20 mEq at 100 mils per hour. Pantoprazole 40 mg IV daily. Acetaminophen 1000 mg IV every 8 hours as needed mild pain or temperature. Morphine sulfate 2 mg IV every 3 hours as needed severe pain. Zofran 4 mg IV every 6 hours as needed. Compazine 10 mg IV every 6 hours as needed. Order NM hepatobiliary scan with pharmacology. Consult general surgery. Present on Admission?: Yes (2) Abnormal gallbladder ultrasound: See above Present on Admission?: Yes (3) Abnormal ECG: Patient with nonspecific EKG changes. The patient will be admitted to telemetry for serial cardiac enzymes, serial EKG's, cardiac rhythm monitoring and a 2-D echocardiogram with Dopplers. Very strong family history of heart disease. Normal serial troponins while in the ED. Consult cardiology. Question whether any significant cardiac stress brought on by gallbladder dysfunction. Present on Admission?: Yes History of Present Illness Chief Complaint: The patient presents to the emergency department with persistent and worsening right upper quadrant and epigastric pain radiating around her right side toward her back, that began this evening prior to arrival. Primary Care Provider: Zandra Shi The patient is a 43-year-old female with new onset right upper quadrant and epigastric pain radiating around her right side toward her back that began this evening prior to arrival. She has not had this pain before. She is also had nausea without vomiting. 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 She has not had any recent travels. Allergies Allergy/AdvReac Type Severity Reaction Status Date / Time Penicillins Allergy Intermediate HIVES Verified 11/13/18 23:23 ENVIROMENTAL Allergy Severe SNEEZING Uncoded 11/13/18 23:23 /ITCHY EYES/ MILD ASTHMA Home Medications Home Medications Medication Instructions Recorded Confirmed Type No Known Home Medications 11/13/18 11/13/18 History Past Med/Surg History Medical History No acute medical problems Social History Feels Safe at Home: Yes Smoking Status: Never smoker Review of Systems The patient denies chest pain, palpitations, shortness of breath, dyspnea on exertion, cough, lower extremity swelling, sore throat, fevers, chills, sweats, vomiting, diarrhea , constipation, pelvic pain, blood in urine or stool, dysuria, urinary frequency or urgency, lightheadedness , dizziness, headache, memory loss, loss of consciousness, rash, abnormal bruising or bleeding, imbalance, focal or generalized weakness, numbness or tingling in arms or legs, generalized arthralgias or myalgias, back or neck pain , or night sweats. The review of systems is otherwise negative other than for that already noted above, and at least 10 systems have been reviewed. Physical Exam 2 Vital Signs (Past 24 Hours): Last Vital Signs Temp 36.5 C 11/13/18 22:44 Pulse 63 11/14/18 04:31 Resp 19 11/14/18 04:31 BP 91/54 L 11/14/18 04:31 Pulse Ox 94 11/14/18 04:31 Physical Exam: The patient is awake, alert and oriented 3, looks fatigued and ill, normocephalic and atraumatic, lying in bed and in no acute distress. HEENT--PERRL, EOMI, mucous membranes and oropharynx dry. Neck--supple. No JVD. No bruits. Thyroid normal, trachea midline, no adenopathy. Heart--normal S1 and S2. No murmurs, rubs or gallops. Lungs--clear bilaterally, no respiratory distress, no accessory muscle use. Abdomen--normal bowel sounds and soft. Tender right upper quadrant with light to moderate palpation. Extremities--no cyanosis or clubbing. No edema. There are good distal pulses b/ l. Dermatologic--normal skin turgor, normal color, no abnormal lymph nodes, no rash. Neurologic--cranial nerves II through XII grossly intact. Rheumatologic--normal range of motion. Psychiatric--normal affect. Results & Data Laboratory Results Laboratory Results WBC 10.66 K/uL (4.8-10.8) 11/13/18 23:20 RBC 5.02 M/uL (4.2-5.4) 11/13/18 23:20 Hgb 15.2 g/dL (12.0-16.0) 11/13/18 23:20 Hct 43.6 % (37-47) 11/13/18 23:20 MCV 86.9 fL (80-100) 11/13/18 23:20 MCH 30.3 pg (25-34) 11/13/18 23:20 MCHC 34.9 g/dL (32-36) 11/13/18 23:20 RDW Std Deviation 41.5 fL (36.4-46.3) 11/13/18 23:20 RDW Coeff of Jossy 13.0 % (11.5-14.5) 11/13/18 23:20 Plt Count 308 K/uL (130-400) 11/13/18 23:20 MPV 11.0 fL (7.4-10.4) H 11/13/18 23:20 Immature Gran % (Auto) 0.3 % 11/13/18 23:20 Neut % (Auto) 52.9 % 11/13/18 23:20 Lymph % (Auto) 38.2 % 11/13/18 23:20 [place] % (Auto) 7.3 % 11/13/18 23:20 Eos % (Auto) 1.2 % 11/13/18 23:20 Baso % (Auto) 0.1 % 11/13/18 23:20 Immature Gran # (Auto) 0.03 K/uL (0.00-0.02) H 11/13/18 23:20 Neut # (Auto) 5.64 K/uL (1.4-6.5) 11/13/18 23:20 Lymph # (Auto) 4.07 K/uL (1.2-3.4) H 11/13/18 23:20 [place] # (Auto) 0.78 K/uL (0.11-0.59) H 11/13/18 23:20 Eos # (Auto) 0.13 K/uL (0-0.5) 11/13/18 23:20 Baso # (Auto) 0.01 K/uL (0-0.2) 11/13/18 23:20 POC D-Dimer > 450 ng/mlFEU (0-450) H* 11/13/18 23:30 Sodium 136 mmol/L (136-145) 11/13/18 23:20 Potassium mmol/L (3.5-5.1) 11/13/18 23:20 Chloride 104 mmol/L (98-107) 11/13/18 23:20 Carbon Dioxide 26 mmol/L (21-32) 11/13/18 23:20 Anion Gap 6.0 (3-11) 11/13/18 23:20 BUN 26 mg/dl (7-18) H 11/13/18 23:20 Creatinine 0.79 mg/dl (0.6-1.2) 11/13/18 23:20 Est Cr Clr Drug Dosing 100.5 ml/min 11/13/18 23:20 Est GFR ( Amer) 107.8 11/13/18 23:20 Est GFR (Non-Af Amer) 93.0 11/13/18 23:20 BUN/Creatinine Ratio 33.3 (10-20) H 11/13/18 23:20 Glucose 98 mg/dl (70-99) 11/13/18 23:20 Calcium 8.6 mg/dl (8.5-10.1) 11/13/18 23:20 Total Bilirubin 0.4 mg/dl (0.2-1) 11/13/18 23:20 AST U/L (15-37) 11/13/18 23:20 ALT 32 U/L (12-78) 11/13/18 23:20 Alkaline Phosphatase 115 U/L (45-117) 11/13/18 23:20 POC Troponin I < 0.03 ng/ml (0-0.045) 11/14/18 05:00 Troponin I < 0.015 ng/ml (0-0.045) 11/13/18 23:20 Total Protein 8.4 gm/dl (6.4-8.2) H 11/13/18 23:20 Albumin 4.4 gm/dl (3.4-5.0) 11/13/18 23:20 Globulin 4.0 gm/dl (2.5-4.0) 11/13/18 23:20 Albumin/Globulin Ratio 1.1 (0.9-2) 11/13/18 23:20 Lipase 113 U/L (73-393) 11/13/18 23:20 HCG, Qual Negative (Negative) 11/13/18 23:20 Urine Color Yellow 11/14/18 04:00 Urine Appearance Clear (Clear) 11/14/18 04:00 Urine pH 5.0 (4.5-7.5) 11/14/18 04:00 Ur Specific [place] > 1.045 (1.000-1.030) H 11/14/18 04:00 Urine Protein Negative (Negative) 11/14/18 04:00 Urine Glucose (UA) Negative (Negative) 11/14/18 04:00 Urine Ketones Negative (Negative) 11/14/18 04:00 Urine Blood Negative (Negative) 11/14/18 04:00 Urine Nitrite Negative (Negative) 11/14/18 04:00 Urine Bilirubin Negative (Negative) 11/14/18 04:00 Urine Urobilinogen Negative (Negative) 11/14/18 04:00 Ur Leukocyte Esterase Negative (Negative) 11/14/18 04:00 Medications Administered Home Medications Medication Instructions Recorded Confirmed No Known Home Medications 11/13/18 11/13/18 Code Status & VTE Plan Code Status Full code VTE Prophylaxis Plan VTE Prophylaxis will be ordered: Yes
--- NOTE | 2018-11-14 06:59 | Ultrasound Report ---
US gallbladder HISTORY: 43 years-old Female ruq pain acute right upper quadrant abdominal pain COMPARISON: CTA chest of same day, CT chest 05/12/2015 TECHNIQUE: Multiple real-time sonographic images of the abdominal right upper quadrant were obtained assessing grayscale appearance and color flow FINDINGS: The pancreas is not diagnostically visualized secondary to obscuring bowel gas. The liver is unremark able without focal mass or intrahepatic biliary ductal dilation. No evidence of cirrhosis. There is m ild gallbladder sludge without shadowing cholelithiasis, wall thickening or pericholecystic fluid. So nographic Cason sign was unable to be assessed secondary to recent pain medication administration to the patient. Common bile duct is normal, 4 mm. Multifocal cortical scarring about the right kidney with ill-defined heterogeneous area about the per ipheral aspect of the lower pole right kidney measuring up to 1.7 x 1.2 x 1.7 cm without internal zuleyma w identified. Mild right caliectasis without sandhya hydronephrosis. IMPRESSION: 1. Mild gallbladder sludge without cholelithiasis or sonographic evidence of acute cholecystitis. 2. No biliary ductal dilation. 3. Multifocal cortical scarring about the right kidney which appears similar to comparison chest CT f rom 05/12/2015. Ill-defined heterogeneous area about the peripheral lower pole right kidney measuring up to 1.7 cm is suggestive of an additional area of scarring with focal renal lesion considered less likely. As a precautionary measure, a follow-up CT may be considered. The above report was generated using voice recognition software. It may contain grammatical, syntax o r spelling errors. Electronically signed by: Ernie Arenas M.D. 11/14/2018 6:57 AM
--- NOTE | 2018-11-14 07:08 | XRay Report ---
SINGLE VIEW CHEST CLINICAL HISTORY: Atypical chest pain. FINDINGS: An AP, portable, upright chest radiograph is compared to study dated 10/29/2017 and correlate d with chest CT dated 05/12/2015. The cardiomediastinal silhouette is unremarkable. The lungs and pleu ral spaces are clear. No pneumothorax is seen. The bony thorax is grossly intact. IMPRESSION: No active disease in the chest. Electronically signed by: Jasiel Wynn M.D. 11/14/2018 7:06 AM
--- NOTE | 2018-11-14 07:15 | CT Scan Report ---
CT angio chest PE protocol CT DOSE: 292.83 mGy.cm HISTORY: 43 years-old Female with PE. Acute chest pain and acute pain of the bilateral breasts TECHNIQUE: Multiple CTA images of the chest were obtained after the intravenous administration of 108 ml Optiray 320. Coronal and sagittal MIPS were obtained from the axial data set and were submitted for review. All measurements were obtained according to NASCET criteria. A dose lowering technique w as utilized adhering to the principles of ALARA. COMPARISON: Chest radiograph of same day, chest CT 05/12/2015. FINDINGS: CTA: Respiratory motion limits the examination . Heart is normal in size without pericardial effusion. Tho racic aorta is normal in both course and caliber without aneurysm or dissection. The imaged great ves sels appear to be patent. The pulmonary arterial tree is opacified to level the proximal subsegmental branches and demonstrates no focal filling defects to suggest pulmonary thromboembolic disease. CT CHEST: Homogeneous appearance of the thyroid. Minimal residual thymic tissue about the anterior mediastinum. No adenopathy by CT size criteria. There is no pneumothorax or pleural effusion. No focal airspace c onsolidation to suggest pneumonia.Low suspicion 4 mm groundglass nodule of the superior segment right lower lobe, image 133 series 4. There are no suspicious pulmonary nodules or masses identified. The central airways appear to be patent. No acute process of the imaged upper abdomen. Imaged breast parenchyma and soft tissues appear unrema rkable. Mild multilevel spondylitic spurring of the spine. The bones appear to be intact. IMPRESSION: 1. No acute intrathoracic abnormality. 2. No acute aortic pathology or evidence of pulmonary thromboembolic disease. The above report was generated using voice recognition software. It may contain grammatical, syntax o r spelling errors. Electronically signed by: Ernie Arenas M.D. 11/14/2018 7:14 AM
[2018-11-14] MEDS ORDERED: ACETAMINOPHEN 1,000 MG/100 ML VIAL IV PRN (07:21)
[2018-11-14] MEDS ORDERED: PROCHLORPERAZINE 10 MG in SYRINGE 8 ML IV PRN (07:21)
[2018-11-14] MEDS: MoRPHine SULFATE 4 MG/ML 1 ML CARP\\VIAL IV PRN ×5 (07:50→20:00)
[2018-11-14] MEDS: NSS + 20MEQ KCL 20 MEQ/1,000 ML BAG IV SCH ×2 (07:51→21:25)
[2018-11-14] MEDS: CIPROFLOXACIN 400 MG/200 ML BAG IV SCH ×2 (07:53→19:48)
[2018-11-14] MEDS ORDERED: PERFLUTREN LIPID MICROSPHERE (DEFINITY) IV ONE (08:29)
[2018-11-14] MEDS: ONDANSETRON INJ 2 MG/ML 2 ML VIAL IV PRN ×2 (08:48→13:44)
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
--- NOTE | 2018-11-14 10:26 | Surgery Consultation ---
Date of Consultation November 14, 2018 Assessment & Plan (1) Biliary colic: Likely more acute cholecystitis than seen on U/S. She would like to proceed with lap ángela during this admission. Will plan for OR this afternoon, no need for HIDA at this time. as above. clinically c/w cholecystitis. discussed options/risks ( bleeding/ infection/dvt/pe/mi/cva/bile leaks/injury to another organ etc...) questions answered. will proceed with lap ángela today History of Present Illness Attending Physician: Sergio Shin MD History of Present Illness 43 y/o female developed RUQ pain radiating around the side to her back yesterday after lunch. Had nausea, no vomiting. Was admitted overnight for biliary colic and also had T-wave changes. Cardiology has seen her, she had repeat EKG, echo, and normal enzymes: no further evaluation needed. She continues to have the same RUQ pain despite analgesics. Looking back she had similar symptoms in the past, never this severe. Allergies Allergy/AdvReac Type Severity Reaction Status Date / Time Penicillins Allergy Intermediate HIVES Verified 11/13/18 23:23 ENVIROMENTAL Allergy Severe SNEEZING Uncoded 11/13/18 23:23 /ITCHY EYES/ MILD ASTHMA Home Medications Home Medications Medication Instructions Recorded Confirmed Type No Known Home Medications 11/13/18 11/13/18 History Patient History Medical History delivery delivered No acute medical problems Social History Current Living Situation: Spouse Other Information That Helps Us Care for You: No Feels Safe at Home: Yes Safety Concerns: Feels Safe At This Time Smoking Status: Never smoker Do You Dip or Chew Tobacco: No Hx Alcohol Use: Yes Alcohol type: other Alcohol Intake Frequency: holidays/ special occasions only Hx Substance Use: No Beliefs That Will Affect Care: None Preferred Language: Montserratian Communication Ability: Effective Brooch And Bracelet Maker Required: No Review of Systems Constitutional: no fever, no chills and no anorexia Gastrointestinal: + abdominal pain and + nausea; no heartburn and no vomiting Physical Exam 2 Vital Signs (Past 24 Hours): Last Vital Signs Temp 36.4 C L 11/14/18 07:21 Pulse 71 11/14/18 09:20 Resp 16 11/14/18 07:21 BP 139/72 11/14/18 07:21 Pulse Ox 97 11/14/18 07:21 Constitutional: WD/WN, vitals as above Respiratory: normal respiratory effort, lungs clear to auscultation Cardiovascular: RRR, no murmur, no edema Gastrointestinal (Abdomen): Inspection/Auscultation: abdomen not distended Percussion/Palpation: + abdomen tender (RUQ) and abdomen soft Skin: no rashes, warm and dry Results & Data Diagnostic Findings US gallbladder HISTORY: 43 years-old Female ruq pain acute right upper quadrant abdominal pain COMPARISON: CTA chest of same day, CT chest 05/12/2015 TECHNIQUE: Multiple real-time sonographic images of the abdominal right upper quadrant were obtained assessing grayscale appearance and color flow FINDINGS: The pancreas is not diagnostically visualized secondary to obscuring bowel gas. The liver is unremarkable without focal mass or intrahepatic biliary ductal dilation. No evidence of cirrhosis. There is mild gallbladder sludge without shadowing cholelithiasis, wall thickening or pericholecystic fluid. Sonographic Cason sign was unable to be assessed secondary to recent pain medication administration to the patient. Common bile duct is normal, 4 mm. Multifocal cortical scarring about the right kidney with ill-defined heterogeneous area about the peripheral aspect of the lower pole right kidney measuring up to 1.7 x 1.2 x 1.7 cm without internal flow identified. Mild right caliectasis without sandhya hydronephrosis. IMPRESSION: 1. Mild gallbladder sludge without cholelithiasis or sonographic evidence of acute cholecystitis. 2. No biliary ductal dilation. 3. Multifocal cortical scarring about the right kidney which appears similar to comparison chest CT from 05/12/2015. Ill-defined heterogeneous area about the peripheral lower pole right kidney measuring up to 1.7 cm is suggestive of an additional area of scarring with focal renal lesion considered less likely. As a precautionary measure, a follow-up CT may be considered. The above report was generated using voice recognition software. It may contain grammatical, syntax or spelling errors. Electronically signed by: Ernie Arenas M.D. 11/14/2018 6:57 AM
[2018-11-14] MEDS: PANTOprazole 40 MG in SYRINGE 0 ML IV SCH (11:10)
[2018-11-14] MEDS ORDERED: ePHEDrine sulfate 50 MG/ML AMP IV PRN (11:22)
[2018-11-14] MEDS ORDERED: ATROPINE SULFATE 0.1 MG/ML 10ML SYR IV PRN (11:22)
[2018-11-14] MEDS ORDERED: ONDANSETRON INJ 2 MG/ML 2 ML VIAL IV PRN (11:22)
[2018-11-14] MEDS ORDERED: fentaNYL citrate 100 MCG/2 ML VIAL ONE ×2 (11:29)
[2018-11-14] MEDS ORDERED: LIDOCAINE HCL 2% 2 ML VIAL/AMP(20MG/ML) INFIL ONE (11:32)
[2018-11-14] MEDS ORDERED: PROPOFOL IV EMULSION 10 MG/ML 20 ML VIAL IV ONE (11:32)
--- NOTE | 2018-11-14 11:41 | Anesthesiology Consultation ---
Date of Service November 14, 2018 Assessment & Plan (1) Encounter for pre-operative examination: Chart Review Chart Review: Acceptable Risk for Surgery Consults Requested none ASA ASA2 Proposed Anesthesia Anesthesia Type: General Risk / Benefits Reviewed With: PT / POA / Parent / Guardian, Accepts Plan and Informed Consent Obtained NPO Date Last Intake of Fluids: 11/13/18 Time Last Intake of Fluids: 22:30 Date Last Intake of Solids: 11/13/18 Time Last Intake of Solids: 14:30 History Surgery Operation Date: 11/14/18 08:50 Proposed Procedures p Laparoscopic Cholecystectomy - Chacho Vivas, DO Height/Weight Height: 5 ft 6 in Weight: 81.5 kg Allergies Allergy/AdvReac Type Severity Reaction Status Date / Time Penicillins Allergy Intermediate HIVES Verified 11/13/18 23:23 ENVIROMENTAL Allergy Severe SNEEZING Uncoded 11/13/18 23:23 /ITCHY EYES/ MILD ASTHMA Medications Home Medications Medication Instructions Recorded Confirmed Last Taken No Known Home Medications 11/13/18 11/13/18 Unknown Active Medications Generic Name Dose Route Start Last Admin Trade Name Freq PRN Reason Stop Dose Admin Ciprofloxacin 400 mg in 200 mls @ 200 mls/hr 11/14/18 07:21 11/14/18 09:01 Cipro IV 11/24/18 07:20 Infused Q12H TC Infusion Potassium Chloride/Sodium Chloride 20 meq in 1,000 mls @ 100 mls/hr 11/14/18 08:00 11/14/18 07:51 Normal Saline W/20 Meq Kcl IV 12/14/18 07:59 100 mls/hr .Q10H TC Administration Pantoprazole Sodium 40 mg/ 10 mls @ 5 mls/min 11/14/18 11:00 11/14/18 11:10 Syringe IV 12/14/18 10:59 5 mls/min DAILY@1100 TC Administration Morphine Sulfate 2 mg 11/14/18 07:21 11/14/18 11:10 Morphine Sulfate IV 11/28/18 07:20 2 mg Q3H PRN Administration Severe Pain Ondansetron HCl 4 mg 11/14/18 07:21 11/14/18 08:48 Zofran IV 12/14/18 07:20 4 mg Q6H PRN Administration NAUSEA/VOMITING Past Medical History Medical History Asthma (Chronic) delivery delivered No acute medical problems Past Surgical History Surgical History S/P tonsillectomy Past Anesthesia History No Hx of Anesthesia Complications and No Family Hx of Anesthesia Complications History of PONV No Motion Sickness Screening History of Motion Sickness: No Social History Smoking Status: Never smoker Do You Dip or Chew Tobacco: No Hx Alcohol Use: Yes Alcohol type: other alcohol intake frequency: holidays/special occasions only Alcohol Intake Frequency Comment: 2 WEEKS AGO Hx Substance Use: No substance use type: does not use Exercise / Class Metabolic Activity II 4-5 Yardwork/Stairs/Walk up hill Physical Exam Vital Signs Last Vital Signs Temp 97.5 F L 11/14/18 07:21 Pulse 71 11/14/18 09:20 Resp 16 11/14/18 07:21 BP 139/72 11/14/18 07:21 Pulse Ox 97 11/14/18 07:21 ENMT Mouth: no dentition abnormality Thyromental Distance: > or= 3.5 Finger Breadths Mallampati Class: III Neck normal visual inspection Respiratory normal respiratory effort Auscultation: lungs clear to auscultation bilaterally Cardiovascular Rate/Rhythm: regular rate and regular rhythm Testing Electrocardiogram Date: 11/14/18 Findings: + NSR @ (76 bpm) and + NSST changes Echocardiogram Date: 11/14/18 EF: 55-60% LV Function: normal RWMA: + none Valvular Disease: + no significant valvular disease Laboratory Results 11/13/18 23:20 11/13/18 23:20 Urine Color Yellow 11/14/18 04:00 Urine Appearance Clear (Clear) 11/14/18 04:00 Urine pH 5.0 (4.5-7.5) 11/14/18 04:00 Ur Specific [place] > 1.045 (1.000-1.030) H 11/14/18 04:00 Urine Protein Negative (Negative) 11/14/18 04:00 Urine Glucose (UA) Negative (Negative) 11/14/18 04:00 Urine Ketones Negative (Negative) 11/14/18 04:00 Urine Nitrite Negative (Negative) 11/14/18 04:00 Ur Leukocyte Esterase Negative (Negative) 11/14/18 04:00
[2018-11-14] MEDS ORDERED: SCOPOLAMINE 1.5 MG TDSY TD ONE (11:59)
[2018-11-14] MEDS ORDERED: SCOPOLAMINE 1.5 MG TDSY ONE (12:14)
[2018-11-14] MEDS ORDERED: BUPIVACAINE/EPINEPHRINE 0.5% MPF 1:200,000 30 ML VIAL ONE (12:19)
[2018-11-14] MEDS ORDERED: GLYCOPYRROLATE 0.2 MG/ML VIAL ONE (12:58)
[2018-11-14] MEDS ORDERED: NEOSTIGMINE METHYLSULFATE 5 MG/5 ML SYR ONE (12:58)
[2018-11-14] MEDS ORDERED: ROCURONIUM BROMIDE 10 MG/ML 5 ML VIAL ONE (12:58)
--- NOTE | 2018-11-14 13:21 | Operative Report ---
Post Operative Report Pre & Post Diagnosis Operation Date: 11/14/18 08:50 Pre-Op Diagnosis: Cholecystitis Post-Op Diagnosis: Cholecystitis Procedure Operation Date: 11/14/18 08:50 Actual Procedures p Laparoscopic Cholecystectomy - Chacho Vivas DO Surgeon Chacho Vivas DO Yard Supervisor Cotton Gin richard Cunningham Estimated Blood Loss 5 Findings Consistent with Post-Op Diagnosis Specimens gallbladder Description of Procedure After informed consent was obtained the patient was taken to the operating room and placed in the supine position. After successful intubation the abdomen was sterilely prepped and draped in usual fashion. A periumbilical incision was made with an 11 blade scalpel and carried down through the soft tissue using electrocautery. The anterior rectus fascia was opened using electrocautery and 2 #0 Vicryl stay sutures were placed. The peritoneum was elevated with hemostats and incised under direct vision using Metzenbaum scissors. A finger sweep was performed and a 12 mm Posadas trocar was placed. The abdomen was insufflated to 18 mmHg. The laparoscope was inserted and the abdomen was examined in 360. No gross abnormalities were identified. A subxiphoid 5 mm port and 2 right upper quadrant 5 mm ports were placed under direct vision. The patient was placed in a reverse Trendelenburg position and slightly airplaned to the left. The gallbladder was grasped and elevated superiorly and laterally. A [place] dissector was used to take down adhesions around the neck of the gallbladder. The cystic duct was identified and skeletonized. It was clipped twice proximally and once distally and transected using a laparoscopic scissor. In similar fashion the cystic artery was identified and skeletonized clipped and divided. There was also a small posterior lymphatic duct that was clipped and divided. The gallbladder was removed from the gallbladder fossa with electrocautery. It was placed into an Endo Catch bag. Thorough irrigation was performed. At the end of the procedure there was adequate hemostasis and no evidence of any bile leaks. A final look around the abdomen showed no other abnormalities. The gallbladder and trochars were all removed and the abdomen was desufflated. The fascia of the camera port was closed using 0 Vicryl in a [id number] fashion. All the wounds were irrigated and closed using 4-0 Monocryl. Marcaine was injected around them for postoperative analgesia and skin glue used as a dressing. The patient was awaken extubated and transferred to recovery in stable condition. My physician's ice cream freezer assistant was present throughout the entire case... helped with prepping the patient. With exposure for trocar placement, as well as retracted the gallbladder throughout the case and also assisted with wound closure and dressing placement. I attest to the content of the Intraoperative Record and any orders documented therein. Any exceptions are noted below.
[2018-11-14] MEDS: fentaNYL citrate 100 MCG/2 ML VIAL IV PRN ×4 (13:31→13:53)
--- NOTE | 2018-11-14 13:39 | History & Physical Report ---
Date of Service November 14, 2018 History of Present Illness Primary Care Provider: Zandra Shi Allergies Allergy/AdvReac Type Severity Reaction Status Date / Time Penicillins Allergy Intermediate HIVES Verified 11/13/18 23:23 ENVIROMENTAL Allergy Severe SNEEZING Uncoded 11/13/18 23:23 /ITCHY EYES/ MILD ASTHMA Home Medications Home Medications Medication Instructions Recorded Confirmed Type No Known Home Medications 11/13/18 11/13/18 History hydrocodone-acetaminophen [[place]] 1 - 2 tab PO Q4H PRN #15 tab 11/14/18 Rx Past Med/Surg History Medical History Asthma (Chronic) delivery delivered No acute medical problems Surgical History S/P tonsillectomy Social History Current Living Situation: Spouse Other Information That Helps Us Care for You: No Feels Safe at Home: Yes Safety Concerns: Feels Safe At This Time Smoking Status: Never smoker Do You Dip or Chew Tobacco: No Hx Alcohol Use: Yes Alcohol type: other Alcohol Intake Frequency: holidays/ special occasions only Hx Substance Use: No Beliefs That Will Affect Care: None Preferred Language: Liberian Communication Ability: Effective Manager Camp Required: No Physical Exam 2 Vital Signs (Past 24 Hours): Last Vital Signs Temp 36.6 C 11/14/18 11:45 Pulse 74 11/14/18 11:45 Resp 18 11/14/18 11:45 BP 109/69 11/14/18 11:45 Pulse Ox 98 11/14/18 11:45 Code Status & VTE Plan VTE Prophylaxis Plan VTE Prophylaxis will be ordered: Yes
--- NOTE | 2018-11-14 14:17 | Anesthesiology Progress Note ---
Date of Service November 14, 2018 Anesthesia Post Procedure Vital Signs Vital Signs: Temp Pulse Pulse Resp BP BP BP 11/14/18 14:00 57 L 7 L 11/14/18 13:55 61 6 L 107/63 11/14/18 13:50 52 L 15 111/66 11/14/18 13:45 60 29 H 114/68 11/14/18 13:40 69 18 104/66 11/14/18 13:37 63 29 H 11/14/18 13:35 70 26 H 107/65 11/14/18 13:34 69 24 113/68 11/14/18 13:30 66 23 82/62 L 11/14/18 13:25 97.9 F 76 74 16 111/73 111/73 11/14/18 11:45 97.9 F 74 18 109/69 11/14/18 11:35 77 11/14/18 11:30 82 11/14/18 11:25 64 11/14/18 11:20 72 11/14/18 11:15 86 11/14/18 11:10 68 11/14/18 11:05 65 11/14/18 11:00 59 L 11/14/18 10:55 71 11/14/18 10:50 63 11/14/18 10:45 63 11/14/18 10:40 72 11/14/18 10:35 65 11/14/18 10:30 72 11/14/18 10:25 68 11/14/18 10:20 68 11/14/18 10:15 80 11/14/18 10:10 88 11/14/18 10:05 85 11/14/18 10:00 75 11/14/18 09:55 76 11/14/18 09:50 64 11/14/18 09:45 79 11/14/18 09:40 72 11/14/18 09:35 64 11/14/18 09:30 65 11/14/18 09:25 64 11/14/18 09:20 67 11/14/18 09:15 81 11/14/18 09:10 69 11/14/18 09:05 76 11/14/18 09:00 80 11/14/18 08:55 75 11/14/18 08:50 67 11/14/18 08:46 82 02/20/19 07:55 74 11/14/18 07:50 80 11/14/18 07:45 86 11/14/18 07:40 73 11/14/18 07:35 74 11/14/18 07:21 97.5 F L 89 16 139/72 11/14/18 07:00 97.5 F L 89 16 139/72 11/14/18 06:31 71 22 100/52 L 11/14/18 06:01 68 13 120/62 11/14/18 05:30 71 19 96/59 L 11/14/18 05:00 66 12 93/59 L 11/14/18 04:31 63 19 91/54 L 11/14/18 04:12 66 18 109/66 11/14/18 04:00 62 15 109/66 11/14/18 03:30 72 13 117/74 11/14/18 03:01 68 14 100/58 L 11/14/18 02:01 83 19 105/76 11/14/18 01:30 79 13 113/74 11/14/18 01:00 79 19 110/65 11/14/18 00:31 78 12 102/64 11/13/18 23:31 83 16 112/75 11/13/18 23:11 86 24 144/91 H 11/13/18 22:44 97.7 F 88 18 142/86 H Pulse Ox 11/14/18 14:00 92 11/14/18 13:55 89 L 11/14/18 13:50 100 11/14/18 13:45 99 11/14/18 13:40 99 11/14/18 13:37 99 11/14/18 13:35 98 11/14/18 13:34 98 11/14/18 13:30 99 11/14/18 13:25 98 11/14/18 11:45 98 11/14/18 11:35 11/14/18 11:30 11/14/18 11:25 11/14/18 11:20 11/14/18 11:15 11/14/18 11:10 11/14/18 11:05 11/14/18 11:00 11/14/18 10:55 11/14/18 10:50 11/14/18 10:45 11/14/18 10:40 11/14/18 10:35 11/14/18 10:30 11/14/18 10:25 11/14/18 10:20 11/14/18 10:15 11/14/18 10:10 11/14/18 10:05 11/14/18 10:00 11/14/18 09:55 11/14/18 09:50 11/14/18 09:45 11/14/18 09:40 11/14/18 09:35 11/14/18 09:30 11/14/18 09:25 11/14/18 09:20 11/14/18 09:15 11/14/18 09:10 11/14/18 09:05 11/14/18 09:00 11/14/18 08:55 11/14/18 08:50 11/14/18 08:46 11/14/18 07:55 11/14/18 07:50 11/14/18 07:45 11/14/18 07:40 11/14/18 07:35 11/14/18 07:21 97 11/14/18 07:00 95 11/14/18 06:31 97 11/14/18 06:01 97 11/14/18 05:30 96 11/14/18 05:00 97 11/14/18 04:31 94 11/14/18 04:12 98 11/14/18 04:00 97 11/14/18 03:30 97 11/14/18 03:01 97 11/14/18 02:01 97 11/14/18 01:30 97 11/14/18 01:00 98 11/14/18 00:31 99 11/13/18 23:31 97 11/13/18 23:11 99 11/13/18 22:44 95 Pain Intensity Chest: Pain Intensity: 3 Notes Mental Status: alert / awake / arousable and participated in evaluation Patient Amnestic to Procedure: Yes Nausea / Vomiting: adequately controlled Pain: adequately controlled Airway Patency, RR, SpO2: stable & adequate BP & HR: stable & adequate Hydration State: stable & adequate Anesthetic Complications: no major complications apparent and Pt Satisfied with anesthetic care
[2018-11-14] MEDS ORDERED: HYDROCODONE/ACETAMOPHEN 5/325MG TAB PO PRN (14:35)
[2018-11-14] MEDS: CHECK SCOPOLAMINE PATCH PLACEMENT SCH ×2 (16:13→23:49)
[2018-11-15] MEDS: MoRPHine SULFATE 4 MG/ML 1 ML CARP\\VIAL IV PRN ×5 (00:20→21:28)
[2018-11-15 06:24] LABS: Basophils # (auto) 0.01 K/uL (0-0.2); Basophils % (auto) 0.1 %; Eosinophils # (auto) 0.07 K/uL (0-0.5); Eosinophils % (auto) 0.9 %; Hematocrit (blood only) 33.8 % (37-47); Immature Granulocytes # (auto) 0.01 K/uL (0.00-0.02); Immature Granulocytes % (auto) 0.1 %; Lymphocytes # (auto) 2.93 K/uL (1.2-3.4); Lymphocytes % (auto) 39.3 %; Mean Corpuscular Hgb Conc 32.5 g/dL (32-36); Mean Corpuscular Volume 88.9 fL (80-100); Mean Platelet Volume 9.8 fL (7.4-10.4); Monocytes # (auto) 0.67 K/uL (0.11-0.59); Neutrophils # (auto) 3.77 K/uL (1.4-6.5); Neutrophils % (auto) 50.6 %; Platelet Count 223 K/uL (130-400); RDW Coefficient of Variation 13.3 % (11.5-14.5); RDW Standard Deviation 43.5 fL (36.4-46.3); White Blood Count 7.46 K/uL (4.8-10.8)
[2018-11-15 06:29] LABS: INR 1.1 (0.9-1.1); Partial Thromboplastin Time 26.2 Seconds (21.0-31.0); Prothrombin Time 11.3 Seconds (9.0-12.0)
[2018-11-15] MEDS: NSS + 20MEQ KCL 20 MEQ/1,000 ML BAG IV SCH ×2 (06:40→18:39)
[2018-11-15 06:45] LABS: Albumin Level 2.8 gm/dl (3.4-5.0); BUN Creatinine Ratio 22.8 (10-20); Calcium 7.3 mg/dl (8.5-10.1); Creatinine Clr Calc Pharmacy 156.2 ml/min; Est GFR (African American) 138.4; Est GFR (Non-African American) 119.4; Potassium 3.6 mmol/L (3.5-5.1)
[2018-11-15 06:49] LABS: Bilirubin,Total 0.7 mg/dl (0.2-1); Globulin 2.8 gm/dl (2.5-4.0); Total Protein 5.6 gm/dl (6.4-8.2)
[2018-11-15] MEDS: CIPROFLOXACIN 400 MG/200 ML BAG IV SCH ×2 (07:45→20:27)
--- NOTE | 2018-11-15 07:49 | Anesthesiology Consultation ---
Date of Service November 15, 2018 Assessment & Plan NPO Date Last Intake of Fluids: 11/13/18 Time Last Intake of Fluids: 22:30 Date Last Intake of Solids: 11/13/18 Time Last Intake of Solids: 14:30 History Surgery Operation Date: 11/14/18 08:50 Proposed Procedures p Laparoscopic Cholecystectomy - Chacho Vivas, DO Height/Weight Height: 5 ft 6 in Weight: 81.5 kg Allergies Allergy/AdvReac Type Severity Reaction Status Date / Time Penicillins Allergy Intermediate HIVES Verified 11/13/18 23:23 ciprofloxacin Allergy Mild Redness of Verified 11/14/18 21:39 Skin ENVIROMENTAL Allergy Severe SNEEZING Uncoded 11/13/18 23:23 /ITCHY EYES/ MILD ASTHMA Medications Home Medications Medication Instructions Recorded Confirmed Last Taken No Known Home Medications 11/13/18 11/13/18 Unknown hydrocodone-acetaminophen [[place]] 1 - 2 tab PO Q4H PRN #15 tab 11/14/18 Unknown Active Medications Generic Name Dose Route Start Last Admin Trade Name Freq PRN Reason Stop Dose Admin Ciprofloxacin 400 mg in 200 mls @ 200 mls/hr 11/14/18 07:21 11/15/18 07:45 Cipro IV 11/24/18 07:20 Not Given Q12H TC Potassium Chloride/Sodium Chloride 20 meq in 1,000 mls @ 100 mls/hr 11/14/18 08:00 11/15/18 06:40 Normal Saline W/20 Meq Kcl IV 12/14/18 07:59 100 mls/hr .Q10H TC Administration Pantoprazole Sodium 40 mg/ 10 mls @ 5 mls/min 11/14/18 11:00 11/14/18 11:10 Syringe IV 12/14/18 10:59 5 mls/min DAILY@1100 TC Administration Miscellaneous 1 ea 11/14/18 16:00 11/14/18 23:49 Check Scopolamine Patch Placement N/A 11/15/18 09:00 1 ea QS TC Administration Morphine Sulfate 4 mg 11/14/18 14:35 11/15/18 06:38 Morphine Sulfate IV 11/28/18 14:34 4 mg Q1H PRN Administration Pain Ondansetron HCl 4 mg 11/14/18 07:21 11/14/18 13:44 Zofran IV 12/14/18 07:20 4 mg Q6H PRN Administration NAUSEA/VOMITING Social History Smoking Status: Never smoker Do You Dip or Chew Tobacco: No Hx Alcohol Use: Yes Alcohol type: other alcohol intake frequency: holidays/special occasions only Alcohol Intake Frequency Comment: 2 WEEKS AGO Hx Substance Use: No substance use type: does not use Physical Exam Vital Signs Last Vital Signs Temp 36.8 C 11/15/18 07:44 Pulse 76 11/15/18 07:44 Resp 18 11/15/18 07:44 BP 102/58 L 11/15/18 07:44 Pulse Ox 97 11/15/18 07:44 Testing Laboratory Results 11/15/18 05:51 11/15/18 05:51 PT 11.3 Seconds (9.0-12.0) 11/15/18 05:51 INR 1.1 (0.9-1.1) 11/15/18 05:51 APTT 26.2 Seconds (21.0-31.0) 11/15/18 05:51 Urine Color Yellow 11/14/18 04:00 Urine Appearance Clear (Clear) 11/14/18 04:00 Urine pH 5.0 (4.5-7.5) 11/14/18 04:00 Ur Specific [place] > 1.045 (1.000-1.030) H 11/14/18 04:00 Urine Protein Negative (Negative) 11/14/18 04:00 Urine Glucose (UA) Negative (Negative) 11/14/18 04:00 Urine Ketones Negative (Negative) 11/14/18 04:00 Urine Nitrite Negative (Negative) 11/14/18 04:00 Ur Leukocyte Esterase Negative (Negative) 11/14/18 04:00
--- NOTE | 2018-11-15 07:51 | Anesthesiology Progress Note ---
Date of Service November 15, 2018 Anesthesia Post Procedure Vital Signs Vital Signs: Temp Pulse Pulse Pulse Resp BP BP 11/15/18 07:44 36.8 C 76 18 102/58 L 11/15/18 04:00 37.0 C 61 17 90/54 L 11/15/18 00:00 37.0 C 61 17 92/56 L 11/14/18 22:20 63 11/14/18 21:00 36.8 C 82 18 118/65 11/14/18 20:20 37.2 C 19 L 75 19 98/58 L 11/14/18 15:47 37.0 C 63 19 103/62 11/14/18 14:42 36.7 C 85 16 108/61 11/14/18 14:17 36.5 C 60 16 108/61 11/14/18 14:15 59 L 11 L 108/61 11/14/18 14:10 61 12 106/64 11/14/18 14:05 76 19 106/67 11/14/18 14:00 57 L 7 L 11/14/18 13:55 61 6 L 107/63 11/14/18 13:50 52 L 15 111/66 11/14/18 13:45 60 29 H 114/68 11/14/18 13:40 69 18 104/66 11/14/18 13:37 63 29 H 11/14/18 13:35 70 26 H 107/65 11/14/18 13:34 69 24 113/68 11/14/18 13:30 66 23 82/62 L 11/14/18 13:25 36.6 C 76 74 16 111/73 111/73 11/14/18 11:45 36.6 C 74 18 109/69 11/14/18 11:35 77 11/14/18 11:30 82 11/14/18 11:25 64 11/14/18 11:20 72 11/14/18 11:15 86 11/14/18 11:10 68 11/14/18 11:05 65 11/14/18 11:00 59 L 11/14/18 10:55 71 11/14/18 10:50 63 11/14/18 10:45 63 11/14/18 10:40 72 11/14/18 10:35 65 11/14/18 10:30 72 11/14/18 10:25 68 11/14/18 10:20 68 11/14/18 10:15 80 11/14/18 10:10 88 11/14/18 10:05 85 11/14/18 10:00 75 11/14/18 09:55 76 11/14/18 09:50 64 11/14/18 09:45 79 11/14/18 09:40 72 11/14/18 09:35 64 11/14/18 09:30 65 11/14/18 09:25 64 11/14/18 09:20 67 11/14/18 09:15 81 11/14/18 09:10 69 11/14/18 09:05 76 11/14/18 09:00 80 11/14/18 08:55 75 11/14/18 08:50 67 11/14/18 08:46 82 11/14/18 07:55 74 Pulse Ox 11/15/18 07:44 97 11/15/18 04:00 95 11/15/18 00:00 95 11/14/18 22:20 11/14/18 21:00 94 11/14/18 20:20 95 11/14/18 15:47 99 11/14/18 14:42 98 11/14/18 14:17 99 11/14/18 14:15 99 11/14/18 14:10 99 11/14/18 14:05 97 11/14/18 14:00 92 11/14/18 13:55 89 L 11/14/18 13:50 100 11/14/18 13:45 99 11/14/18 13:40 99 11/14/18 13:37 99 11/14/18 13:35 98 11/14/18 13:34 98 11/14/18 13:30 99 11/14/18 13:25 98 11/14/18 11:45 98 11/14/18 11:35 11/14/18 11:30 11/14/18 11:25 11/14/18 11:20 11/14/18 11:15 11/14/18 11:10 11/14/18 11:05 11/14/18 11:00 11/14/18 10:55 11/14/18 10:50 11/14/18 10:45 11/14/18 10:40 11/14/18 10:35 11/14/18 10:30 11/14/18 10:25 11/14/18 10:20 11/14/18 10:15 11/14/18 10:10 11/14/18 10:05 11/14/18 10:00 11/14/18 09:55 11/14/18 09:50 11/14/18 09:45 11/14/18 09:40 11/14/18 09:35 11/14/18 09:30 11/14/18 09:25 11/14/18 09:20 11/14/18 09:15 11/14/18 09:10 11/14/18 09:05 11/14/18 09:00 11/14/18 08:55 11/14/18 08:50 11/14/18 08:46 11/14/18 07:55 Pain Intensity Chest: Pain Intensity: 3 Notes Mental Status: alert / awake / arousable and participated in evaluation Patient Amnestic to Procedure: Yes Nausea / Vomiting: adequately controlled Pain: adequately controlled Airway Patency, RR, SpO2: stable & adequate BP & HR: stable & adequate Hydration State: stable & adequate Anesthetic Complications: no major complications apparent and Pt Satisfied with anesthetic care
[2018-11-15] MEDS ORDERED: CALCIUM GLUCONATE 10% 2,000 MG in SODIUM CHLORIDE 0.9% 50 ML IV STA (08:07)
[2018-11-15] MEDS: CHECK SCOPOLAMINE PATCH PLACEMENT SCH (08:36)
[2018-11-15] MEDS ORDERED: Nursing to Pharmacy Communication ONE (08:44)
[2018-11-15] MEDS: CYCLOBENZAPRINE HCL 5 MG TAB PO PRN ×2 (09:44→20:49)
--- NOTE | 2018-11-15 11:04 | Surgery Progress Note ---
Date of Service November 15, 2018 Assessment & Plan (1) Biliary colic: POD 1 lap ángela/acute cholecystitis advance diet as benedict H&H down, was a little concentrated on admission Subjective some pain epigastric incision, not much appetite Physical Exam 2 Vital Signs (Past 24 Hours): Last Vital Signs Temp 36.8 C 11/15/18 07:44 Pulse 60 11/15/18 08:15 Resp 18 11/15/18 07:44 BP 102/58 L 11/15/18 07:44 Pulse Ox 97 11/15/18 07:44 Gastrointestinal (Abdomen): Inspection/Auscultation: abdomen not distended Percussion/Palpation: abdomen soft
[2018-11-15] MEDS: ONDANSETRON INJ 2 MG/ML 2 ML VIAL IV PRN (11:45)
[2018-11-15] MEDS: HYDROCODONE/ACETAMOPHEN 5/325MG TAB PO PRN ×2 (14:27→20:28)
--- NOTE | 2018-11-15 14:41 | Surgery Progress Note ---
Date of Service November 15, 2018 Assessment & Plan (1) Biliary colic: pod 1 doing ok. increase activity likely d/c home tomorrow Subjective doing better now. still some pain/no appetite Physical Exam 2 Vital Signs (Past 24 Hours): Last Vital Signs Temp 36.8 C 11/15/18 07:44 Pulse 60 11/15/18 08:15 Resp 18 11/15/18 07:44 BP 102/58 L 11/15/18 07:44 Pulse Ox 97 11/15/18 07:44 Physical Exam: alert/oriented. nad abd: soft. expected tenderness. wounds look good.
[2018-11-15] MEDS: PANTOprazole 40 MG in SYRINGE 0 ML IV SCH (15:36)
--- NOTE | 2018-11-15 16:21 | Hospitalist Progress Note ---
Date of Service November 15, 2018 Assessment & Plan (1) Biliary colic: Biliary colic with abnormal gallbladder ultrasound showing gallbladder sludge. S/p lap ángela with Dr. Vivas on 11/14. - Cipro 400 mg IV every 12 hours - Monitor laparoscopic sites - Hgb fell from 15 -> 11 on 11/15. HR & BP stable. - Recheck in the morning (2) Abnormal ECG: Patient with nonspecific EKG changes. Seen by cardiology with thought that this was not related to cardiac disease. Troponins negative. Echo on 11/14 showed EF 55-60% and was totally normal. - No further inpatient needs (3) DVT prophylaxis: SCDs - Low risk patient Subjective 43yo F s/p lap ángela with Dr. Vivas on 11/14. Still somewhat sore. Reports no fevers/chills, chest pain, shortness of breath, abdominal pain, nausea, or vomiting. Physical Exam 2 Vital Signs (Past 24 Hours): Last Vital Signs Temp 37.1 C 11/15/18 15:45 Pulse 82 11/15/18 15:45 Resp 18 11/15/18 15:45 BP 89/58 L 11/15/18 15:45 Pulse Ox 93 11/15/18 15:45 Constitutional: WD/WN, vitals as above ENMT: Mouth: no dentition abnormality Mallampati Class: III Neck: normal visual inspection Respiratory: normal respiratory effort, lungs clear to auscultation normal respiratory effort Auscultation: lungs clear to auscultation bilaterally Cardiovascular: RRR, no murmur, no edema Rate/Rhythm: regular rate and regular rhythm Gastrointestinal (Abdomen): Inspection/Auscultation: abdomen not distended Percussion/Palpation: + abdomen tender (RUQ) and abdomen soft Skin: no rashes, warm and dry
[2018-11-15] MEDS ORDERED: cefTRIAXone SODIUM 1,000 MG in SODIUM CHLOR 0.9% AD-VAN 50 ML IV SCH (21:00)
[2018-11-16] MEDS: MoRPHine SULFATE 4 MG/ML 1 ML CARP\\VIAL IV PRN ×2 (02:08→09:19)
[2018-11-16] MEDS: NSS + 20MEQ KCL 20 MEQ/1,000 ML BAG IV SCH ×2 (04:02→09:14)
[2018-11-16 06:49] LABS: Basophils # (auto) 0.01 K/uL (0-0.2); Basophils % (auto) 0.1 %; Eosinophils # (auto) 0.08 K/uL (0-0.5); Eosinophils % (auto) 1.1 %; Hematocrit (blood only) 33.8 % (37-47); Hemoglobin 11.2 g/dL (12.0-16.0); Immature Granulocytes # (auto) 0.02 K/uL (0.00-0.02); Immature Granulocytes % (auto) 0.3 %; Lymphocytes # (auto) 2.72 K/uL (1.2-3.4); Mean Corpuscular Hgb Conc 33.1 g/dL (32-36); Mean Corpuscular Volume 88.9 fL (80-100); Mean Platelet Volume 9.9 fL (7.4-10.4); Monocytes # (auto) 0.81 K/uL (0.11-0.59); Monocytes % (auto) 10.7 %; Neutrophils # (auto) 3.91 K/uL (1.4-6.5); Neutrophils % (auto) 51.8 %; Platelet Count 213 K/uL (130-400); RDW Coefficient of Variation 13.2 % (11.5-14.5); RDW Standard Deviation 42.8 fL (36.4-46.3); White Blood Count 7.55 K/uL (4.8-10.8)
[2018-11-16 07:21] LABS: Albumin Level 2.8 gm/dl (3.4-5.0); Calcium 7.7 mg/dl (8.5-10.1); Creatinine Clr Calc Pharmacy 141.6 ml/min; Est GFR (African American) 133.5; Est GFR (Non-African American) 115.1; Magnesium 1.9 mg/dl (1.8-2.4); Potassium 3.6 mmol/L (3.5-5.1)
[2018-11-16 07:24] LABS: Albumin Globulin Ratio 0.9 (0.9-2); Bilirubin,Total 0.6 mg/dl (0.2-1); Total Protein 5.8 gm/dl (6.4-8.2)
[2018-11-16] MEDS: HYDROCODONE/ACETAMOPHEN 5/325MG TAB PO PRN ×2 (08:06→12:33)
[2018-11-16] MEDS: CYCLOBENZAPRINE HCL 5 MG TAB PO PRN (08:07)
[2018-11-16] MEDS ORDERED: CALCIUM GLUCONATE 10% 2,000 MG in SODIUM CHLORIDE 0.9% 50 ML IV ONE (08:30)
[2018-11-16] MEDS ORDERED: DOCUSATE SODIUM 100 MG CAP PO ONE (09:53)
[2018-11-16] MEDS ORDERED: SENNA 8.6 MG TAB PO ONE (10:00)
--- NOTE | 2018-11-16 11:00 | Surgery Progress Note ---
Date of Service November 16, 2018 Assessment & Plan (1) Biliary colic: ok for d/c from my standpoint instructions given. f/u in 1-2 weeks. Subjective pt seen. no new complaints. Physical Exam 2 Vital Signs (Past 24 Hours): Last Vital Signs Temp 37.3 C 11/16/18 07:24 Pulse 72 11/16/18 07:24 Resp 16 11/16/18 07:24 BP 96/59 L 11/16/18 07:24 Pulse Ox 93 11/16/18 07:24 Physical Exam: alert. nad abd: soft. incisions look good.
[2018-11-16] MEDS: PANTOprazole 40 MG in SYRINGE 0 ML IV SCH (12:34)
--- NOTE | 2018-11-16 17:33 | Discharge Summary ---
Date of Service November 16, 2018 Admission HPI Per Admitting Provider The patient is a 43-year-old female with new onset right upper quadrant and epigastric pain radiating around her right side toward her back that began this evening prior to arrival. She has not had this pain before. She is also had nausea without vomiting. 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 She has not had any recent travels. Principal Diagnosis Gallbladder sludge Discharge Exam Constitutional WD/WN, vitals as above ENMT Mouth: no dentition abnormality Mallampati Class: III Neck normal visual inspection Respiratory normal respiratory effort, lungs clear to auscultation normal respiratory effort Auscultation: lungs clear to auscultation bilaterally Cardiovascular RRR, no murmur, no edema Rate/Rhythm: regular rate and regular rhythm Gastrointestinal (Abdomen) Inspection/Auscultation: abdomen not distended Percussion/Palpation: + abdomen tender (RUQ) and abdomen soft Skin no rashes, warm and dry Discharge Data Allergies Allergy/AdvReac Type Severity Reaction Status Date / Time Penicillins Allergy Intermediate HIVES Verified 11/13/18 23:23 ciprofloxacin Allergy Mild Redness of Verified 11/14/18 21:39 Skin ENVIROMENTAL Allergy Severe SNEEZING Uncoded 11/13/18 23:23 /ITCHY EYES/ MILD ASTHMA Consultations 11/14/18 03:42 ED Decision to Admit Stat 11/14/18 07:21 Consult Cardiology Routine Consult Case Management - Discharge Planning Routine Consult General Surgery Routine Procedures Performed Operation Date: 11/14/18 08:50 Actual Procedures p Laparoscopic Cholecystectomy - Chacho Vivas, Ordered Studies 11/13/18 23:50 CT angio chest PE protocol Stat 11/14/18 01:12 US gallbladder Urgent Hospital Course (1) Biliary colic: Biliary colic with abnormal gallbladder ultrasound showing gallbladder sludge. S/p lap ángela with Dr. Vivas on 11/14. - Hgb fell from 15 -> 11 on 11/15. HR & BP were stable. - The next day day, hgb was stable at 11.2. Priors are as low as 11 and as high as 15, so an aspect of hemodilution may be at play. - Surgical sites looked good and patient was having less pain at the incision sites. - Discharged with outpatient surgery follow up. (2) Abnormal ECG: Patient with nonspecific EKG changes. Seen by cardiology with thought that this was not related to cardiac disease. Troponins negative. Echo on 11/14 showed EF 55-60% and was totally normal. - No further inpatient needs (3) DVT prophylaxis: SCDs - Low risk patient Total Time Total Time Spent Total Time Spent (In Minutes): 40 Total Time Includes: Examination of the Patient, Discharge Planning, Medication Reconciliation and Communication With Other Providers Discharge Plan Discharge Items Patient Disposition: Home - Self-Care Reason For Visit: ABNORMAL EKG, BILIARY COLIC Discharge Diagnosis: Laparoscopic cholecystectomy Condition: Good Discharge Goals: Decrease discomfort Activity: Per 'Additional Instructions' section Lifting: No more than 10 pounds Bathing: No limitations Driving/Machine Use: Resume 3 days after discharge Non-emergency contact: Surgeon Call non-emergency contact if: you have any medication questions, your pain is not controlled, you have a fever and your temperature is above 101.5 Follow-up/Referrals: Chacho Vivas, DO [Surgeon] - 11/20/18 10:10 am (Please, follow up with Dr. Vivas (surgeon) on on MondayNovember 20 at 10 :10 am. *This office is located at [address] [facility] in [place]. If you need to change this appointment, call the office at [phone].) Diet: Regular Addtl Provider Instructions: Ms. Paez, you were admitted to the hospital for gallbladder pain. You had a laproscopic cholecystectomy on 11/[address] Vivas. He is pleased with how things are going, and will see you in clinic in a few days. Please call Dr. Vivas's office or return to the hospital with any fevers, chills, worsening pain, lightheadedness, or dizziness. Please take a few doses of Miralax, docusate (Colace), or senna over the next few days to help your bowels wake back up and get you regular. Take it easy for the next few days until you are feeling stronger and your pain has improved. Prescriptions: New hydrocodone-acetaminophen [[place]] 5-325 mg tablet 1 - 2 tab PO Q4H PRN (Reason: pain) Qty: 15 RF: 0 No Action No Known Home Medications RF: 0 Stand-Alone Forms: Work/School Release (Inpt) Discharge Orders: Discharge Order (Routine); Ordered 11/16/18 Ordered By: Werner Oh Admission Data Admit Date/Time: 11/14/18 05:52 Attending Provider: Werner Oh Admit Provider: Sergio Shin Primary Care Provider: Zandra Shi Other Providers: Werner Oh ; Sergio Shin ; Sarkis Moreno ; Jayme Horan Service: Medical Other Interventions: Discharge Summary Assessment (RN) Last Done: 11/16/18 12:55 DC Date/Time DO NOT enter until pt leaves facility: 11/16/18 14:03
[2018-11-17] MEDS ORDERED: SENNA 8.6 MG TAB PO SCH (09:00)
== END 2018-11-16 14:03 | disposition home or self-care (01) | DRG 419 ==
LOC: ED 22:38 → 2E 11-14 05:52 → SUATTDRO 11-14 05:52 → 2E 11-14 06:53 → 2W 11-15 10:39
DX: K80.42 Calculus of bile duct with acute cholecystitis without obstruction; Z91.048 Other nonmedicinal substance allergy status; J45.909 Unspecified asthma, uncomplicated; Z88.0 Allergy status to penicillin; R94.31 Abnormal electrocardiogram [ECG] [EKG]; K82.8 Other specified diseases of gallbladder

== ENCOUNTER 2019-08-11 12:06 | Inpatient (IN) ==
[2019-08-11] MEDS ORDERED: ONDANSETRON INJ 2 MG/ML 2 ML VIAL IV STA ×2 (12:37→13:23)
[2019-08-11] MEDS ORDERED: SODIUM CHLORIDE 0.9% 1000ML 1,000 ML IV ONE (12:37)
[2019-08-11] MEDS ORDERED: KETOROLAC TROMETHAMINE 15 MG/ML VIAL IV STA (12:37)
--- NOTE | 2019-08-11 12:40 | Emergency Department Note ---
History of Present Illness General Chief complaint: Abdominal Pain Stated complaint: LOWER ABD PAIN Time Seen by Provider: 08/11/19 12:29 Source: patient Mode of arrival: ambulatory Limitations: no limitations History of Present Illness Maximum Pain Intensity: 6 Treatments prior to arrival: other This patient is a 44-year-old female who presents to the emergency department for evaluation of lower abdominal pain. Patient reports that yesterday, she had developed some nausea and was not feeling well. She states that the pain has progressively worsened today and is now radiating across her lower abdomen. She describes this as a stabbing pain and states it is worse with walking and mov ing. She rates her discomfort a 6/10 when she is staying still. She has been nauseous but has not vomited. She denies any fevers, changes in bowel movements, urinary symptoms or abnormal vaginal discharge. She has a Mirena IUD and therefore does not get a regular menstrual period. Patient states this feels similar to when she had her gallbladder removed, but the pain is lower in her abdomen. She tried Tylenol yesterday without relief of the pain. She states that nothing has improved the pain. Home Medications Home Medications Medication Instructions Recorded Confirmed Type dicyclomine 10 mg PO TID #15 cap 08/11/19 Rx ondansetron 4 mg PO Q6H PRN #15 tab 08/11/19 Rx oxycodone-acetaminophen [Percocet] 1 tab PO Q6H PRN #12 tab 08/11/19 Rx Allergies Allergy/AdvReac Type Severity Reaction Status Date / Time Penicillins Allergy Intermediate HIVES Verified 08/11/19 12:57 ciprofloxacin Allergy Mild Redness of Verified 08/11/19 12:57 Skin ENVIROMENTAL Allergy Severe SNEEZING Uncoded 08/11/19 12:57 /ITCHY EYES/ MILD ASTHMA Past Med/Surg History Medical History Asthma (Chronic) delivery delivered No acute medical problems Surgical History History of cholecystectomy S/P tonsillectomy Social History Preferred Language: Serbian Communication Ability: Effective 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 Beliefs That Will Affect Care: None Current Living Situation: Spouse Feels Safe at Home: Yes Smoking Status: Never smoker Second Hand Exposure: Yes ; Hx Alcohol Use: No Hx Substance Use: No Review of Systems A total of 10 systems reviewed and were otherwise negative Physical Exam Vital Signs Vital Signs - 24 hr 08/11/19 12:16 08/11/19 14:07 08/11/19 16:00 Temperature 36.4 C L Temperature Source Oral Pulse Rate 68 Pulse Rate [Finger] 78 89 Pulse Rhythm [Finger] Regular Pulse Strength [Finger] Normal Respiratory Rate 20 20 22 Respiratory Effort / Characteristics Non-Labored Spontaneous Non-Labored Spontaneous Respiratory Depth Normal Normal Blood Pressure 137/77 Blood Pressure [Right Arm] 112/79 Blood Pressure Mean 97 Blood Pressure Mean [Right Arm] 90 Blood Pressure Position Sitting Pulse Oximetry 96 98 132 H Oxygen Delivery Method Room Air Sepsis Recent Fever Within 48 Hours No Sepsis New/Unexplained Change in Mental Status No Sepsis Action Taken by Nursing No Action Required 08/11/19 18:00 Temperature Temperature Source Pulse Rate Pulse Rate [Finger] 68 Pulse Rhythm [Finger] Pulse Strength [Finger] Respiratory Rate 20 Respiratory Effort / Characteristics Respiratory Depth Blood Pressure Blood Pressure [Right Arm] 139/58 L Blood Pressure Mean Blood Pressure Mean [Right Arm] 85 Blood Pressure Position Pulse Oximetry 93 Oxygen Delivery Method Room Air Sepsis Recent Fever Within 48 Hours Sepsis New/Unexplained Change in Mental Status Sepsis Action Taken by Nursing VITALS: Vitals are noted on the nurse's note and reviewed by myself. Vital signs stable. GENERAL: This is a 44-year-old female, in no acute distress, well-developed well-nourished. SKIN: The skin was without rashes. EYES: Pupils equal round and reactive to light and accommodation. MOUTH: Mucous membranes moist. Tonsils are not enlarged. Pharynx without erythema or exudate. NECK: Supple without nuchal rigidity. No lymphadenopathy. HEART: Regular rate and rhythm without murmurs gallops or rubs. LUNGS: Clear to auscultation bilaterally without wheezes, rales or rhonchi. ABDOMEN: Positive bowel sounds x 4. Soft, nondistended. Tenderness to palpation across the lower abdomen, particularly in the right lower quadrant. No guarding or rebound tenderness. NEURO: Patient was alert and oriented to person place and time. Course Reevaluation(s) Reevaluation #1: Patient was reevaluated and was feeling no better after the Toradol. A dose of morphine was ordered for the patient. Reevaluation #2: Patient was again reevaluated and again states she is feeling no better. I offered her IV Tylenol or Bentyl and patient agrees to try IV Tylenol. Reevaluation #3: Patient was reevaluated and states her pain is still about a 6/10. I discussed options of care with the patient including further doses of pain medication versus discharge home. She feels that she could be discharged home with some pain medication. I discussed at length the patient's work-up today as well as the importance of close follow-up with her PCP. Additional Reevaluation(s): I was informed by nursing staff that the patient asked to speak with the physician I was working with. Patient was examined by Dr. Rico, who I had already discussed the patient with. We again discussed the patient's case and elected to consult the hospitalist to evaluate the patient for her intractable abdominal pain at this time. The [facility] hospitalist service was consulted and will evaluate the patient for further treatment. Administered Medications Hydromorphone HCl (Dilaudid) 0.5 mg IV Q6H PRN PRN Reason: Pain Stop: 08/25/19 22:07 Last Admin: 08/12/19 04:32 Dose: 0.5 mg Documented by: [id number] Admin: 08/11/19 22:27 Dose: 0.5 mg Documented by: [id number] Potassium Chloride/Sodium Chloride (Normal Saline W/20 Meq Kcl) 20 meq in 1,000 mls @ 100 mls/hr IV .Q10H TC Stop: 08/12/19 15:59 Last Admin: 08/12/19 05:52 Dose: 100 mls/hr Documented by: [id number] Infusion: 08/12/19 05:52 Dose: 100 mls/hr Documented by: [id number] Admin: 08/11/19 20:44 Dose: 100 mls/hr Documented by: [id number] Prochlorperazine 10 mg/ (Syringe) 10 mls @ 5 mls/min IV QID PRN PRN Reason: nausea vomiting Stop: 09/10/19 19:47 Last Admin: 08/12/19 09:26 Dose: 5 mls/min Documented by: [id number] Acetaminophen (Ofirmev) 1,000 mg in 100 mls @ 400 mls/hr IV DAILY PRN PRN Reason: Pain Stop: 08/15/19 10:02 Last Infusion: 08/12/19 11:13 Dose: 0 mls/hr Documented by: [id number] Admin: 08/12/19 10:47 Dose: 400 mls/hr Documented by: [id number] Morphine Sulfate (Morphine Sulfate) 1 mg IV Q2H PRN PRN Reason: Pain Stop: 08/25/19 19:47 Last Admin: 08/11/19 20:44 Dose: 1 mg Documented by: [id number] Ondansetron HCl (Zofran) 4 mg IV Q6H PRN PRN Reason: Nausea Stop: 09/10/19 19:47 Last Admin: 08/12/19 03:02 Dose: 4 mg Documented by: [id number] Admin: 08/11/19 20:45 Dose: 4 mg Documented by: [id number] Discontinued Medications Hydromorphone HCl (Dilaudid) 0.5 mg IV NOW STA Stop: 08/11/19 18:15 Last Admin: 08/11/19 18:40 Dose: Not Given Documented by: [id number] Hydromorphone HCl (Dilaudid) Confirm Administered Dose 0.5 mg .ROUTE .STK-MED ONE Stop: 08/11/19 18:19 Last Admin: 08/11/19 18:20 Dose: 0.5 mg Documented by: [id number] Sodium Chloride (Nss 1000ml) 1,000 mls @ 999 mls/hr IV .Q1H1M ONE Stop: 08/11/19 13:37 Last Infusion: 08/11/19 16:09 Dose: 0 mls/hr Documented by: [id number] Admin: 08/11/19 12:52 Dose: 999 mls/hr Documented by: [id number] Acetaminophen (Ofirmev) 1,000 mg in 100 mls @ 400 mls/hr IV NOW STA Stop: 08/11/19 16:22 Last Infusion: 08/11/19 17:05 Dose: 0 mls/hr Documented by: [id number] Admin: 08/11/19 16:13 Dose: 400 mls/hr Documented by: [id number] Ioversol (Optiray 320 100ml) 94 ml IV ONCE PRN PRN Reason: Interaction Checking Stop: 08/15/19 13:48 Last Admin: 08/11/19 13:50 Dose: 94 ml Documented by: [id number] Ketorolac Tromethamine (Toradol) 15 mg IV NOW STA Stop: 08/11/19 12:38 Last Admin: 08/11/19 12:51 Dose: 15 mg Documented by: [id number] Morphine Sulfate (Morphine Sulfate) 6 mg IV NOW STA Stop: 08/11/19 14:37 Last Admin: 08/11/19 15:01 Dose: Not Given Documented by: [id number] Morphine Sulfate (Morphine Sulfate) Confirm Administered Dose 4 mg .ROUTE .STK- MED ONE Stop: 08/11/19 14:45 Last Admin: 08/11/19 15:00 Dose: 4 mg Documented by: [id number] Morphine Sulfate (Morphine Sulfate) Confirm Administered Dose 2 mg .ROUTE .STK- MED ONE Stop: 08/11/19 14:45 Last Admin: 08/11/19 14:46 Dose: 2 mg Documented by: [id number] Ondansetron HCl (Zofran) 4 mg IV NOW STA Stop: 08/11/19 12:38 Last Admin: 08/11/19 12:51 Dose: 4 mg Documented by: [id number] Ondansetron HCl (Zofran) 4 mg IV NOW STA Stop: 08/11/19 13:24 Last Admin: 08/11/19 13:33 Dose: 4 mg Documented by: [id number] Medical Decision Making Differential Diagnosis Differential diagnosis includes appendicitis, ectopic , ovarian cyst, ovarian torsion, PID, diverticulitis, colitis, bowel obstruction, UTI, kidney stone, pyelonephritis, malignancy/mass, among others. Home Medications Current Medication List: was personally reviewed by me Laboratory Data Attestation: I reviewed the patient's lab results. Result diagrams: 08/12/19 05:37 08/12/19 05:37 Lab Results 08/11/19 08/11/19 08/11/19 Range/Units 12:30 12:30 13:40 WBC 5.24 (4.8-10.8) K/uL RBC 4.46 (4.2-5.4) M/uL Hgb 13.3 (12.0-16.0) g/dL Hct 39.3 (37-47) % MCV 88.1 (80-100) fL MCH 29.8 (25-34) pg MCHC 33.8 (32-36) g/dL RDW Std Deviation 40.9 (36.4-46.3) fL RDW Coeff of Jossy 12.8 (11.5-14.5) % Plt Count 290 (130-400) K/uL MPV 9.9 (7.4-10.4) fL Immature Gran % (Auto) 0.2 % Neut % (Auto) 49.0 % Lymph % (Auto) 41.2 % [place] % (Auto) 8.4 % Eos % (Auto) 1.0 % Baso % (Auto) 0.2 % Immature Gran # (Auto) 0.01 (0.00-0.02) K/uL Neut # (Auto) 2.57 (1.4-6.5) K/uL Lymph # (Auto) 2.16 (1.2-3.4) K/uL [place] # (Auto) 0.44 (0.11-0.59) K/uL Eos # (Auto) 0.05 (0-0.5) K/uL Baso # (Auto) 0.01 (0-0.2) K/uL Sodium 140 (136-145) mmol/L Potassium 3.5 (3.5-5.1) mmol/L Chloride 107 (98-107) mmol/L Carbon Dioxide 26 (21-32) mmol/L Anion Gap 8.0 (3-11) BUN 15 (7-18) mg/dl Creatinine 0.59 L (0.6-1.2) mg/dl Est Cr Clr Drug Dosing 130.1 ml/min Est GFR ( Amer) 131.0 Est GFR (Non-Af Amer) 113.1 BUN/Creatinine Ratio 24.9 H (10-20) Glucose 80 (70-99) mg/dl Calcium 8.7 (8.5-10.1) mg/dl Total Bilirubin 0.8 (0.2-1) mg/dl AST 11 L (15-37) U/L ALT 17 (12-78) U/L Alkaline Phosphatase 82 (45-117) U/L Total Protein 7.2 (6.4-8.2) gm/dl Albumin 3.8 (3.4-5.0) gm/dl Globulin 3.4 (2.5-4.0) gm/dl Albumin/Globulin Ratio 1.1 (0.9-2) Lipase 63 L (73-393) U/L Urine Color Yellow Urine Appearance Clear (Clear) Urine pH 7.5 (4.5-7.5) Ur Specific [place] 1.007 (1.000-1.030) Urine Protein Negative (Negative) Urine Glucose (UA) Negative (Negative) Urine Ketones Trace H (Negative) Urine Blood Negative (Negative) Urine Nitrite Negative (Negative) Urine Bilirubin Negative (Negative) Urine Urobilinogen Negative (Negative) Ur Leukocyte Esterase Negative (Negative) Imaging Data Attestation: I personally reviewed and interpreted this imaging study as follows: Radiologist's Impression: ABDOMEN AND PELVIS CT WITH IV CONTRAST FINDINGS: Lung bases are generally clear. There is no pneumatosis or pneumoperitoneum. The imaged inferior cardiac chambers appear unremarkable. Cholecystectomy. Liver, spleen, pancreas and right adrenal gland are unremarkable. Mild left adrenal gland thickening. Patency of the hepatic and portal veins. Suggestion mild cortical scarring of the superior pole left kidney medially. There is multifocal cortical scarring and parenchymal thinning of the right kidney redemonstrated which appears stable from the 2015 exam. Suggestion of urothelial thickening about the right renal pelvis and central calyces. No renal calculi or obstructive uropathy. 2.1 cm cystic focus of the left adnexum suggests dominant follicle. IUD appears to be in satisfactory positioning. Aorta and IVC are unremarkable. No bowel obstruction or bowel wall thickening. The appendix measures up to 6 mm and appears to be noninflamed and nondilated. No periappendiceal inflammatory stranding. There is no ascites or mesenteric inflammation. The breast parenchyma and soft tissues appear unremarkable. Bones appear intact. Degenerative changes are noted about the imaged lower lumbar spine. IMPRESSION: 1. No bowel obstruction or bowel wall thickening. 2. Noninflamed appendix. 3. IUD in situ. 4. Multifocal parenchymal scarring and cortical thinning of the right kidney redemonstrated. Additionally, there is suggestion of mild urothelial thickening of the right renal pelvis. Correlate with urinalysis. 5. Cholecystectomy. PELVIC ULTRASOUND, TRANSABDOMINAL AND TRANSVAGINAL FINDINGS: Uterus: No uterine masses. A few nabothian cysts within the cervix. Endometrial stripe: 3 mm in thickness. The intrauterine device is in good position. Right ovary: Normal in size and demonstrates normal color flow. Left ovary: Normal in size and demonstrates normal color flow. Miscellaneous:No pelvic free fluid. IMPRESSION: No significant abnormality identified within the pelvis. The intrauterine device is in good position. Blood Pressure Blood Pressure Findings: Normal blood pressure Blood Pressure Disposition: did not require urgent referral MDM Narrative The patient is a 44-year-old female who presents today complaining of abdominal pain. Labs revealed no leukocytosis, anemia or concerning electrolyte abnormalities. LFTs within normal limits. Lipase was not elevated. Urinalysis with no evidence of infection. Urine negative. CT of the abdomen/pelvis initially performed and reviewed by radiology with no acute findings. Pelvic ultrasound was then performed as patient was still uncomfortable and this was read by radiology with no acute findings as well. Patient given multiple doses of IV pain medications. Patient was then independently evaluated by Dr. Rico, the attending physician. Decision was made to consult the hospitalist to evaluate the patient for her intractable abdominal pain, as she felt she could not be discharged home. Attending Attestation: Navya Rico MD independently saw and evaluated this patient and agree with history and physical is otherwise documented by the physician daycare assistant. See their note for full details. Imaging and labs reviewed. Patient with unclear etiology of abdominal pain more so in RLQ. US and CT of area were performed. Labs unremarkable. Patient still in pain and personally reviewed options with her of discharge with return precautions or observation here in the hospital. Patient elected to be observed given level of pain and lack of clear process causing symptoms. Discussed with hospitalist. Impression & Plan Intractable abdominal pain Discharge Plan Visit Data *Final* Discharge Date/Time: 08/11/19 19:10 Chief Complaint: Abdominal Pain Stated Complaint: LOWER ABD PAIN ED Provider: Jhon Rico ED Midlevel Provider: Yudi Stewart Discharge Problem: Intractable abdominal pain Patient Disposition: Admitted As Inpatient Condition: Good Discharge Instructions Interventions: ED Discharge Assessment Last Done: 08/11/19 19:10
[2019-08-11 12:45] LABS: Basophils # (auto) 0.01 K/uL (0-0.2); Basophils % (auto) 0.2 %; Eosinophils # (auto) 0.05 K/uL (0-0.5); Hematocrit (blood only) 39.3 % (37-47); Hemoglobin 13.3 g/dL (12.0-16.0); Immature Granulocytes # (auto) 0.01 K/uL (0.00-0.02); Immature Granulocytes % (auto) 0.2 %; Lymphocytes # (auto) 2.16 K/uL (1.2-3.4); Lymphocytes % (auto) 41.2 %; Mean Corpuscular Hemoglobin 29.8 pg (25-34); Mean Corpuscular Hgb Conc 33.8 g/dL (32-36); Mean Corpuscular Volume 88.1 fL (80-100); Mean Platelet Volume 9.9 fL (7.4-10.4); Monocytes # (auto) 0.44 K/uL (0.11-0.59); Monocytes % (auto) 8.4 %; Neutrophils # (auto) 2.57 K/uL (1.4-6.5); Platelet Count 290 K/uL (130-400); RDW Coefficient of Variation 12.8 % (11.5-14.5); RDW Standard Deviation 40.9 fL (36.4-46.3); Red Blood Count 4.46 M/uL (4.2-5.4); White Blood Count 5.24 K/uL (4.8-10.8)
[2019-08-11 12:57] LABS: Albumin Level 3.8 gm/dl (3.4-5.0); BUN Creatinine Ratio 24.9 (10-20); Calcium 8.7 mg/dl (8.5-10.1); Creatinine Clr Calc Pharmacy 130.1 ml/min; Est GFR (Non-African American) 113.1; Potassium 3.5 mmol/L (3.5-5.1)
[2019-08-11 13:00] LABS: Albumin Globulin Ratio 1.1 (0.9-2); Bilirubin,Total 0.8 mg/dl (0.2-1); Globulin 3.4 gm/dl (2.5-4.0); Total Protein 7.2 gm/dl (6.4-8.2)
[2019-08-11 13:47] LABS: Appearance Urine Clear (Clear); Bilirubin Urine Negative (Negative); Blood Urine Negative (Negative); Color Urine Yellow; Glucose Urine UA Negative (Negative); Ketones Urine Trace (Negative); Leukocyte Esterase Urine Negative (Negative); Nitrite Urine Negative (Negative); Protein Urine Negative (Negative); Specific Gravity Urine 1.007 (1.000-1.030); Urobilinogen Urine Negative (Negative); pH Urine 7.5 (4.5-7.5)
[2019-08-11] MEDS ORDERED: IOVERSOL 100ml IV PRN (13:49)
--- NOTE | 2019-08-11 14:34 | CT Scan Report ---
ABDOMEN AND PELVIS CT WITH IV CONTRAST CT DOSE: 683.96 mGy.cm HISTORY: Acute right lower quadrant abdominal pain with nausea rlq abdominal pain, nausea TECHNIQUE: Multiaxial CT images of the abdomen and pelvis were performed following the IV administrat ion of 94 cc of Optiray 320, A dose lowering technique was utilized adhering to the principles of [place]. COMPARISON STUDY: Right upper quadrant abdominal ultrasound and CTA chest 11/14/2018, CT of the chest 05/12/2015 FINDINGS: Lung bases are generally clear. There is no pneumatosis or pneumoperitoneum. The imaged inferior card iac chambers appear unremarkable. Cholecystectomy. Liver, spleen, pancreas and right adrenal gland ar e unremarkable. Mild left adrenal gland thickening. Patency of the hepatic and portal veins. Suggestion mild cortical scarring of the superior pole left kidney medially. There is multifocal yodit ical scarring and parenchymal thinning of the right kidney redemonstrated which appears stable from 2014 exam. Suggestion of urothelial thickening about the right renal pelvis and central calyces. N o renal calculi or obstructive uropathy. 2.1 cm cystic focus of the left adnexum suggests dominant fo llicle. IUD appears to be in satisfactory positioning. Aorta and IVC are unremarkable. No bowel obstruction or bowel wall thickening. The appendix measures up to 6 mm and appears to be non inflamed and nondilated. No periappendiceal inflammatory stranding. There is no ascites or mesenteric inflammation. The breast parenchyma and soft tissues appear unremarkable. Bones appear intact. Degen erative changes are noted about the imaged lower lumbar spine. IMPRESSION: 1. No bowel obstruction or bowel wall thickening. 2. Noninflamed appendix. 3. IUD in situ. 4. Multifocal parenchymal scarring and cortical thinning of the right kidney redemonstrated. Addition ally, there is suggestion of mild urothelial thickening of the right renal pelvis. Correlate with uri nalysis. 5. Cholecystectomy. Electronically signed by: Ernie Arenas M.D. 08/11/2019 2:33 PM
[2019-08-11] MEDS ORDERED: MoRPHine SULFATE 10 MG/ML CARP/VIAL IV STA (14:36)
[2019-08-11] MEDS ORDERED: MoRPHine SULFATE 2 MG/ML CARP ONE (14:44)
[2019-08-11] MEDS ORDERED: MoRPHine SULFATE 4 MG/ML 1 ML CARP\\VIAL ONE (14:44)
--- NOTE | 2019-08-11 15:52 | Ultrasound Report ---
PELVIC ULTRASOUND, TRANSABDOMINAL AND TRANSVAGINAL HISTORY: lower abdominal pain COMPARISON: Abdomen and pelvis CT 08/11/2019. FINDINGS: Uterus: No uterine masses. A few nabothian cysts within the cervix. Endometrial stripe: 3 mm in thickness. The intrauterine device is in good position. Right ovary: Normal in size and demonstrates normal color flow. Left ovary: Normal in size and demonstrates normal color flow. Miscellaneous:No pelvic free fluid. IMPRESSION: No significant abnormality identified within the pelvis. The intrauterine device is in good position. Electronically signed by: Jose Roberto Durham M.D. 08/11/2019 3:51 PM
[2019-08-11] MEDS ORDERED: ACETAMINOPHEN 1,000 MG/100 ML VIAL IV STA (16:08)
[2019-08-11] MEDS ORDERED: HYDROmorphone INJ 1 MG/ML SYRINGE IV STA (18:14)
[2019-08-11] MEDS ORDERED: HYDROmorphone INJ 0.5 MG/0.5 ML SYR ONE (18:18)
--- NOTE | 2019-08-11 18:51 | History & Physical Report ---
Date of Service August 11, 2019 Assessment & Plan (1) Abdominal pain: Admit to [facility] for observation for most likely viral gastroenteritis. Vital signs every 4 hours. Replenish electrolytes IV fluid hydration with normal saline and potassium at 100 cc/h. N.p.o. except for medicine and advance diet as tolerated DVT prophylaxis with SCDs and teds Pain and nausea management with morphine IV 1 mg every 2 hours as needed, Zofran, Compazine and Phenergan as needed. Follow-up stool cultures and for ova and parasite C. difficile Full code Present on Admission?: Yes (2) Nausea: As above Present on Admission?: Yes (3) Vomiting: As above Present on Admission?: Yes (4) Chronic diarrhea: Patient said that diarrhea started after cholecystectomy. Whether or not that is the problem it is difficult to determine at this point. Follow-up with stool cultures ova, parasites, and C. difficile prior to making any conclusions. Present on Admission?: Yes (5) Asthma: Stable now. Patient does not take anything for asthma at this time. 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 Patient reports chronic diarrhea since her gallbladder has been removed. Patient rep orts that nothing helps it. Patient denies fever, chills, chest pain, shortness of breath, frequency urgency. Patient reports no melena or hematochezia. Labs are reviewed which shows: WBCs of 5.24, hemoglobin 13.3, hematocrit 39.3, platelets 290, sodium of 140, potassium 3.5, chloride 107, BUN 15, creatinine 0.59, GFR 113, magnesium not checked, AST 11, ALT 17, alkaline phosphatase 82. Urine all negative except for trace ketones. CT scan of the abdomen: no bowel obstruction or bowel wall thickening, noninflamed appendix, multifocal parenchymal scarring and cortical thinning of the right kidney redemonstrated. Additionally there is suggestion of mild urothelial thickening of the right renal pelvis. They recommended correlation with urinalysis which is negative. Cholecystectomy. Decision was made to admit patient for observation for abdominal pain possibly due to viral enterocolitis or some other etiology, and for management of nausea vomiting and abdominal pain. Allergies Allergy/AdvReac Type Severity Reaction Status Date / Time Penicillins Allergy Intermediate HIVES Verified 08/11/19 12:57 ciprofloxacin Allergy Mild Redness of Verified 08/11/19 12:57 Skin ENVIROMENTAL Allergy Severe SNEEZING Uncoded 08/11/19 12:57 /ITCHY EYES/ MILD ASTHMA Home Medications Home Medications Medication Instructions Recorded Confirmed Type dicyclomine 10 mg PO TID #15 cap 08/11/19 Rx ondansetron 4 mg PO Q6H PRN #15 tab 08/11/19 Rx oxycodone-acetaminophen [Percocet] 1 tab PO Q6H PRN #12 tab 08/11/19 Rx Past Med/Surg History Medical History Asthma (Chronic) delivery delivered No acute medical problems Surgical History History of cholecystectomy S/P tonsillectomy Social History Preferred Language: Citizen Of [place] Communication Ability: Effective 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 Beliefs That Will Affect Care: None Current Living Situation: Spouse Feels Safe at Home: Yes Smoking Status: Never smoker Second Hand Exposure: Yes ; Hx Alcohol Use: Yes Alcohol type: other Hx Substance Use: No Review of Systems Review of Systems: All systems reviewed & are unremarkable except as noted in HPI & below Physical Exam Constitutional: WD/WN, vitals as above well developed Eyes: PERRL, conjunctivae normal, anicteric sclerae ENMT: external ear and nose normal, oropharynx normal Neck: trachea midline, no thyromegaly Respiratory: normal respiratory effort, lungs clear to auscultation Cardiovascular: RRR, no murmur, no edema Gastrointestinal (Abdomen): Inspection/Auscultation: + abdomen distended and + hyperactive bowel sounds Percussion/Palpation: + guarding and abdomen soft Musculoskeletal: no cyanosis or clubbing, extremities motor strength 5/5 Skin: no rashes, warm and dry Neurologic: patellar DTR's 2+ bilat, sensation intact Psychiatric: A+Ox3, euthymic affect Lymphatic: no cervical or axillary lymphadenopathy Results & Data Vital Signs (Past 12 Hours) Vital Signs Temp Pulse Pulse Resp BP BP Pulse Ox 08/11/19 16:00 89 22 132 H 08/11/19 14:07 78 20 112/79 98 08/11/19 12:16 36.4 C L 68 20 137/77 96 Code Status & VTE Plan Code Status Full code VTE Prophylaxis Plan VTE Prophylaxis will be ordered: Yes PG Care Time/CCT Total # of Minutes Spent Total Time Spent with Patient: Total time spent is greater than 50% in coordination of care (as documented) at patient's floor/unit and/or counseling patient:
[2019-08-11] MEDS ORDERED: ACETAMINOPHEN 325 MG TAB PO PRN (19:48)
[2019-08-11] MEDS ORDERED: MAGNESIUM HYDROXIDE SUSP 30 ML UDC PO PRN (19:48)
[2019-08-11] MEDS ORDERED: PROMETHAZINE HCL 25 MG in SODIUM CHLORIDE 0.9% 50 ML IV PRN (19:48)
[2019-08-11] MEDS ORDERED: ALUMINUM/MAGNESIUM SUSP 30 ML UDC PO PRN (19:48)
[2019-08-11] MEDS: NSS + 20MEQ KCL 20 MEQ/1,000 ML BAG IV SCH (20:44)
[2019-08-11] MEDS: MoRPHine SULFATE 2 MG/ML CARP IV PRN (20:44)
[2019-08-11] MEDS: ONDANSETRON INJ 2 MG/ML 2 ML VIAL IV PRN (20:45)
[2019-08-11] MEDS: HYDROmorphone INJ 0.5 MG/0.5 ML SYR IV PRN (22:27)
[2019-08-12] MEDS: ONDANSETRON INJ 2 MG/ML 2 ML VIAL IV PRN (03:02)
[2019-08-12] MEDS: HYDROmorphone INJ 0.5 MG/0.5 ML SYR IV PRN (04:32)
[2019-08-12 05:48] LABS: Basophils # (auto) 0.01 K/uL (0-0.2); Basophils % (auto) 0.2 %; Eosinophils # (auto) 0.09 K/uL (0-0.5); Eosinophils % (auto) 1.6 %; Hematocrit (blood only) 34.1 % (37-47); Hemoglobin 11.3 g/dL (12.0-16.0); Immature Granulocytes # (auto) 0.01 K/uL (0.00-0.02); Immature Granulocytes % (auto) 0.2 %; Lymphocytes # (auto) 2.11 K/uL (1.2-3.4); Mean Corpuscular Hemoglobin 29.5 pg (25-34); Mean Corpuscular Hgb Conc 33.1 g/dL (32-36); Monocytes # (auto) 0.37 K/uL (0.11-0.59); Monocytes % (auto) 6.5 %; Neutrophils # (auto) 3.12 K/uL (1.4-6.5); Neutrophils % (auto) 54.5 %; Platelet Count 235 K/uL (130-400); RDW Coefficient of Variation 12.9 % (11.5-14.5); RDW Standard Deviation 41.6 fL (36.4-46.3); Red Blood Count 3.83 M/uL (4.2-5.4); White Blood Count 5.71 K/uL (4.8-10.8)
[2019-08-12] MEDS: NSS + 20MEQ KCL 20 MEQ/1,000 ML BAG IV SCH (05:52)
[2019-08-12 06:24] LABS: BUN Creatinine Ratio 26.5 (10-20); Calcium 7.7 mg/dl (8.5-10.1); Creatinine Clr Calc Pharmacy 138.9 ml/min; Est GFR (African American) 133.3; Potassium 3.7 mmol/L (3.5-5.1)
[2019-08-12 06:30] LABS: Albumin Globulin Ratio 1.1 (0.9-2); Bilirubin,Total 0.7 mg/dl (0.2-1); Globulin 2.8 gm/dl (2.5-4.0); Total Protein 5.8 gm/dl (6.4-8.2)
--- NOTE | 2019-08-12 09:17 | Hospitalist Progress Note ---
Date of Service August 12, 2019 Assessment & Plan (1) Abdominal pain: Continue admit to [facility] for observation for most likely viral gastroenteritis. Vital signs every 4 hours. Replenish electrolytes IV fluid hydration with normal saline and potassium at 100 cc/h. Advance diet as tolerated DVT prophylaxis with SCDs and teds Pain and nausea management with morphine IV 1 mg every 2 hours as needed, Zofran, Compazine and Phenergan as needed. Appreciate GI recommendations: Check c.diff Check stool culture Antiemetics PRN Can trial Bentyl 10 mg TID Pt reports being on Prozac 20 mg PO daily.This was started recently. Started colestid 1 g TID as her loose stools worsened after cholecystectomy OP colonoscopy in a bout 4-6 weeks for evaluation of chronic loose stools, intermittent rectal bleeding Follow-up stool cultures and for ova and parasite C. difficile Full code (2) Nausea: As above (3) Vomiting: As above (4) Chronic diarrhea: Patient said that diarrhea started after cholecystectomy. Whether or not that is the problem it is difficult to determine at this point. Follow-up with stool cultures ova, parasites, and C. difficile prior to making any conclusions. (5) Asthma: Stable now. Patient does not take anything for asthma at this time. Subjective Pt seen and examined at the bedside. Pt continue to feels nauseated and has diarrhea after eating. Per patient food does not stay too long in her bowel and just go through her. Patient said pain medication and antinausea medication helps. Appreciate GI recommendations. Patient denies fever, chills, chest pain, shortness of breath, frequency, urgency. Patient is right now tolerating liquids and will advance diet as tolerated as tolerated. Afebrile. Review of Systems Review of Systems: All systems reviewed & are unremarkable except as noted in HPI & below Physical Exam Constitutional: WD/WN, vitals as above well developed Eyes: PERRL, conjunctivae normal, anicteric sclerae ENMT: external ear and nose normal, oropharynx normal Neck: trachea midline, no thyromegaly Respiratory: normal respiratory effort, lungs clear to auscultation Cardiovascular: RRR, no murmur, no edema Gastrointestinal (Abdomen): Inspection/Auscultation: + abdomen distended and + hyperactive bowel sounds Percussion/Palpation: + guarding and abdomen soft Musculoskeletal: no cyanosis or clubbing, extremities motor strength 5/5 Skin: no rashes, warm and dry Neurologic: patellar DTR's 2+ bilat, sensation intact Psychiatric: A+Ox3, euthymic affect Lymphatic: no cervical or axillary lymphadenopathy Results & Data Vital Signs (Past 12 Hours) Vital Signs Temp Pulse Resp BP Pulse Ox 08/12/19 07:40 36.6 C 57 L 18 99/62 L 96 08/11/19 23:22 36.6 C 54 L 16 99/64 L 96 PG Care Time/CCT Total # of Minutes Spent Total Time Spent with Patient: Total time spent is greater than 50% in coordination of care (as documented) at patient's floor/unit and/or counseling patient:
[2019-08-12] MEDS: PROCHLORPERAZINE 10 MG in SYRINGE 8 ML IV PRN (09:26)
--- NOTE | 2019-08-12 09:53 | Gastrointestinal Consultation ---
Date of Consultation August 12, 2019 Assessment & Plan (1) Abdominal pain: 44 year old female with history of IBS s/p recent cholecystectomy admitted with lower abdominal pain, diarrhea and nausea without vomiting. She is afebrile without leukocytosis. Contrast enhanced CTAP without any acute findings. Would check stool studies to rule out c.diff, presentation concerning for gastroenteritis - Check c.diff - Check stool culture - Antiemetics PRN - Can trial Bentyl 10 mg TID - No GI contraindication to clear liquid, advance as tolerated - She notes she was started on SSRI as OP, not currently on while inhouse will defer to primary service to order this - Last dose was prior to arrival - Agree with IVF maintenance - Analgesia PRN - Consider colestid 1 g TID as her loose stools worsened after cholecystectomy - OP colonoscopy in a bout 4-6 weeks for evaluation of chronic loose stools, intermittent rectal bleeding Will sign off. Thank you for allowing us to participate in the care of this patient. Please call with any acute changes, questions or concerns. Please see addendum below with additional recommendation from my supervising physician. Supervising Physician Co-Signing Physician Notes I have seen and examined the patient with LITA Saravia whose note reflects our findings and plan. Acute Gi symptoms suggestive of viral GE. Underlying chronic loose stools likely related to bile salt diarrhea. She should have an outpatient colonoscopy once she recovers from this acute illness. Stool studies pending. Abd exam is benign. History of Present Illness Reason for Consultation: N/V/D Requesting Physician: Scott Attending Physician: Yonny Chavez MD History of Present Illness 44 [facility] with [facility] of irregular menses, IBS, recent cholecystectomy who presents through the ED for evaluation of abdominal pain, nausea, vomiting, diarrhea - GI asked to evaluate. Pt was seen and evaluated, chart reviewed. She denies previous evaluation by GI, has never had EGD/Colon. Typically, moves bowels 2-3 times daily after PO. No abd pain. Suggests about 48 hours ago developed lower abdominal pain, R>L that is sharp. Pain is intermittent. Worse with PO but also certian movements. Feels slightly better with BM. Does not radiate. Suggests around the same time she noted increased in bowel frequency. Suggests about 4-6, watery yellow/green stools daily. No black stools but has seen intermittent episdoes of BRBPR. No clots. No rectal pain/pressure. Suggests at onset of diarrhea, had nausea but no vomiting. No GERD, dysphagia. No fever, chills, weight loss, CP, SOB. No family history of IBD No prior EGD/Colon Started prozac about 2/3 weeks ago - this does not appear on medication list now No marijuana use No home narcotics No sick contacts No international travel CTAP: There is no pneumatosis or pneumoperitoneum. The imaged inferior cardiac chambers appear unremarkable. Cholecystectomy. Liver, spleen, pancreas and right adrenal gland are unremarkable. Mild left adrenal gland thickening. Patency of the hepatic and portal veins. No bowel obstruction or bowel wall thickening. The appendix measures up to 6 mm and appears to be noninflamed and nondilated. No periappendiceal inflammatory stranding. There is no ascites or mesenteric inflammation. Allergies Allergy/AdvReac Type Severity Reaction Status Date / Time Penicillins Allergy Intermediate HIVES Verified 08/11/19 12:57 ciprofloxacin Allergy Mild Redness of Verified 08/11/19 12:57 Skin ENVIROMENTAL Allergy Severe SNEEZING Uncoded 08/11/19 12:57 /ITCHY EYES/ MILD ASTHMA Home Medications Home Medications Medication Instructions Recorded Confirmed Type dicyclomine 10 mg PO TID #15 cap 08/11/19 Rx ondansetron 4 mg PO Q6H PRN #15 tab 08/11/19 Rx oxycodone-acetaminophen [Percocet] 1 tab PO Q6H PRN #12 tab 08/11/19 Rx Patient History Medical History Asthma (Chronic) delivery delivered No acute medical problems Surgical History History of cholecystectomy S/P tonsillectomy Social History Preferred Language: Czech Communication Ability: Effective Pcu Rn Required: No Beliefs That Will Affect Care: None Current Living Situation: Spouse Feels Safe at Home: Yes Smoking Status: Never smoker Second Hand Exposure: Yes ; Hx Alcohol Use: No Hx Substance Use: No Review of Systems Constitutional: + fatigue and + anorexia; no fever and no chills Respiratory: no cough and no dyspnea Cardiovascular: no chest pain and no radiating jaw, neck or arm pain Gastrointestinal: + abdominal pain, + nausea, + change in bowel habits, + change in stools, + diarrhea/loose stools and + blood in stools; no early satiety, no vomiting, no hematemesis, no dysphagia, no cramping and no melena Physical Exam Constitutional: no acute distress Neck: trachea midline Respiratory: normal respiratory effort, lungs clear to auscultation Cardiovascular: Rate/Rhythm: regular rate and regular rhythm Gastrointestinal (Abdomen): Inspection/Auscultation: normal bowel sounds Percussion/Palpation: + abdomen tender and abdomen soft; no guarding and abdomen not rigid Skin: no rashes, warm and dry Results & Data Vital Signs (Past 12 Hours) Vital Signs Temp Pulse Resp BP Pulse Ox 08/12/19 07:40 36.6 C 57 L 18 99/62 L 96 08/11/19 23:22 36.6 C 54 L 16 99/64 L 96 Laboratory Results 08/12/19 08/12/19 08/11/19 Range/Units 05:37 05:37 13:40 WBC 5.71 (4.8-10.8) K/uL RBC 3.83 L (4.2-5.4) M/uL Hgb 11.3 L (12.0-16.0) g/dL Hct 34.1 L (37-47) % MCV 89.0 (80-100) fL MCH 29.5 (25-34) pg MCHC 33.1 (32-36) g/dL RDW Std Deviation 41.6 (36.4-46.3) fL RDW Coeff of Jossy 12.9 (11.5-14.5) % Plt Count 235 (130-400) K/uL MPV 10.0 (7.4-10.4) fL Immature Gran % (Auto) 0.2 % Neut % (Auto) 54.5 % Lymph % (Auto) 37.0 % Mitchell % (Auto) 6.5 % Eos % (Auto) 1.6 % Baso % (Auto) 0.2 % Immature Gran # (Auto) 0.01 (0.00-0.02) K/uL Neut # (Auto) 3.12 (1.4-6.5) K/uL Lymph # (Auto) 2.11 (1.2-3.4) K/uL Mitchell # (Auto) 0.37 (0.11-0.59) K/uL Eos # (Auto) 0.09 (0-0.5) K/uL Baso # (Auto) 0.01 (0-0.2) K/uL Sodium 141 (136-145) mmol/L Potassium 3.7 (3.5-5.1) mmol/L Chloride 110 H (98-107) mmol/L Carbon Dioxide 24 (21-32) mmol/L Anion Gap 7.0 (3-11) BUN 15 (7-18) mg/dl Creatinine 0.56 L (0.6-1.2) mg/dl Est Cr Clr Drug Dosing 138.9 ml/min Est GFR ( Amer) 133.3 Est GFR (Non-Af Amer) 115.0 BUN/Creatinine Ratio 26.5 H (10-20) Glucose 59 L (70-99) mg/dl Calcium 7.7 L (8.5-10.1) mg/dl Total Bilirubin 0.7 (0.2-1) mg/dl AST 17 (15-37) U/L ALT 24 (12-78) U/L Alkaline Phosphatase 73 (45-117) U/L Total Protein 5.8 L (6.4-8.2) gm/dl Albumin 3.0 L (3.4-5.0) gm/dl Globulin 2.8 (2.5-4.0) gm/dl Albumin/Globulin Ratio 1.1 (0.9-2) Lipase (73-393) U/L Urine Color Urine Appearance (Clear) Urine pH (4.5-7.5) Ur Specific [place] (1.000-1.030) Urine Protein (Negative) Urine Glucose (UA) (Negative) Urine Ketones (Negative) Urine Blood (Negative) Urine Nitrite (Negative) Urine Bilirubin (Negative) Urine Urobilinogen (Negative) Ur Leukocyte Esterase (Negative) POC Ur Test Pending 08/11/19 08/11/19 08/11/19 Range/Units 13:40 12:30 12:30 WBC 5.24 (4.8-10.8) K/uL RBC 4.46 (4.2-5.4) M/uL Hgb 13.3 (12.0-16.0) g/dL Hct 39.3 (37-47) % MCV 88.1 (80-100) fL MCH 29.8 (25-34) pg MCHC 33.8 (32-36) g/dL RDW Std Deviation 40.9 (36.4-46.3) fL RDW Coeff of Jossy 12.8 (11.5-14.5) % Plt Count 290 (130-400) K/uL MPV 9.9 (7.4-10.4) fL Immature Gran % (Auto) 0.2 % Neut % (Auto) 49.0 % Lymph % (Auto) 41.2 % Mitchell % (Auto) 8.4 % Eos % (Auto) 1.0 % Baso % (Auto) 0.2 % Immature Gran # (Auto) 0.01 (0.00-0.02) K/uL Neut # (Auto) 2.57 (1.4-6.5) K/uL Lymph # (Auto) 2.16 (1.2-3.4) K/uL Mitchell # (Auto) 0.44 (0.11-0.59) K/uL Eos # (Auto) 0.05 (0-0.5) K/uL Baso # (Auto) 0.01 (0-0.2) K/uL Sodium 140 (136-145) mmol/L Potassium 3.5 (3.5-5.1) mmol/L Chloride 107 (98-107) mmol/L Carbon Dioxide 26 (21-32) mmol/L Anion Gap 8.0 (3-11) BUN 15 (7-18) mg/dl Creatinine 0.59 L (0.6-1.2) mg/dl Est Cr Clr Drug Dosing 130.1 ml/min Est GFR ( Amer) 131.0 Est GFR (Non-Af Amer) 113.1 BUN/Creatinine Ratio 24.9 H (10-20) Glucose 80 (70-99) mg/dl Calcium 8.7 (8.5-10.1) mg/dl Total Bilirubin 0.8 (0.2-1) mg/dl AST 11 L (15-37) U/L ALT 17 (12-78) U/L Alkaline Phosphatase 82 (45-117) U/L Total Protein 7.2 (6.4-8.2) gm/dl Albumin 3.8 (3.4-5.0) gm/dl Globulin 3.4 (2.5-4.0) gm/dl Albumin/Globulin Ratio 1.1 (0.9-2) Lipase 63 L (73-393) U/L Urine Color Yellow Urine Appearance Clear (Clear) Urine pH 7.5 (4.5-7.5) Ur Specific [place] 1.007 (1.000-1.030) Urine Protein Negative (Negative) Urine Glucose (UA) Negative (Negative) Urine Ketones Trace H (Negative) Urine Blood Negative (Negative) Urine Nitrite Negative (Negative) Urine Bilirubin Negative (Negative) Urine Urobilinogen Negative (Negative) Ur Leukocyte Esterase Negative (Negative) POC Ur Test
[2019-08-12] MEDS: ACETAMINOPHEN 1,000 MG/100 ML VIAL IV PRN (10:47)
[2019-08-12] MEDS: MoRPHine SULFATE 2 MG/ML CARP IV PRN (16:17)
[2019-08-12] MEDS ORDERED: FLUOXETINE HCL 20 MG CAP PO ONE (16:45)
[2019-08-12] MEDS: DICYCLOMINE HCL 10 MG CAP PO SCH (20:45)
[2019-08-12] MEDS: COLESTIPOL HCL 1 GM TAB PO SCH (22:01)
[2019-08-13 06:11] LABS: Basophils # (auto) 0.01 K/uL (0-0.2); Basophils % (auto) 0.2 %; Eosinophils # (auto) 0.09 K/uL (0-0.5); Eosinophils % (auto) 1.5 %; Hematocrit (blood only) 35.3 % (37-47); Hemoglobin 11.9 g/dL (12.0-16.0); Immature Granulocytes # (auto) 0.01 K/uL (0.00-0.02); Immature Granulocytes % (auto) 0.2 %; Lymphocytes # (auto) 1.94 K/uL (1.2-3.4); Lymphocytes % (auto) 31.5 %; Mean Corpuscular Hemoglobin 29.8 pg (25-34); Mean Corpuscular Hgb Conc 33.7 g/dL (32-36); Mean Corpuscular Volume 88.3 fL (80-100); Mean Platelet Volume 10.3 fL (7.4-10.4); Monocytes # (auto) 0.48 K/uL (0.11-0.59); Monocytes % (auto) 7.8 %; Neutrophils # (auto) 3.63 K/uL (1.4-6.5); Neutrophils % (auto) 58.8 %; Platelet Count 252 K/uL (130-400); RDW Coefficient of Variation 12.6 % (11.5-14.5); RDW Standard Deviation 40.7 fL (36.4-46.3); White Blood Count 6.16 K/uL (4.8-10.8)
[2019-08-13 06:40] LABS: Albumin Level 3.1 gm/dl (3.4-5.0); BUN Creatinine Ratio 21.7 (10-20); Creatinine Clr Calc Pharmacy 149.6 ml/min; Est GFR (African American) 136.6; Est GFR (Non-African American) 117.8; Potassium 3.3 mmol/L (3.5-5.1)
[2019-08-13 06:42] LABS: Albumin Globulin Ratio 1.1 (0.9-2); Bilirubin,Total 0.7 mg/dl (0.2-1); Globulin 2.9 gm/dl (2.5-4.0)
[2019-08-13] MEDS: DICYCLOMINE HCL 10 MG CAP PO SCH ×2 (07:29→14:13)
[2019-08-13] MEDS ORDERED: FLUOXETINE HCL 20 MG CAP PO SCH (09:00)
[2019-08-13] MEDS: COLESTIPOL HCL 1 GM TAB PO SCH ×2 (09:26→16:43)
[2019-08-13] MEDS: PROCHLORPERAZINE 10 MG in SYRINGE 8 ML IV PRN (09:26)
[2019-08-13] MEDS: ACETAMINOPHEN 1,000 MG/100 ML VIAL IV PRN (11:23)
[2019-08-13] MEDS ORDERED: IOVERSOL 100ml IV PRN (12:53)
--- NOTE | 2019-08-13 13:16 | CT Scan Report ---
CT SCAN OF THE ABDOMEN AND PELVIS WITH IV CONTRAST CLINICAL HISTORY: Generalized abdominal pain. COMPARISON STUDY: Abdominal CT dated 08/11/2019. TECHNIQUE: Following the IV administration of 92 cc of Optiray 320, CT scan of the abdomen and pelvi s is performed from the lung bases to the proximal femora. Images are reviewed in the axial, sagittal , and coronal planes. IV contrast was administered without complication. Oral contrast was utilized. A dose lowering technique was utilized adhering to the principles of ALARA. CT DOSE: 567.16 mGy.cm FINDINGS: Lung bases: The heart is normal in size and without pericardial effusion. The lung bases are clear. Liver: The contrast-enhanced liver is normal in size, contour, and attenuation. There is no intrahepa tic biliary ductal dilatation. The hepatic veins and portal veins are patent. Gallbladder: Surgically absent noting clips in the gallbladder fossa. Spleen: Normal in size and attenuation. Pancreas: Unremarkable. Adrenal glands: Unremarkable. Kidneys: The contrast enhanced kidneys are normal in size and without hydronephrosis. The kidneys enh ance symmetrically. Multiple foci of cortical scarring are again seen in the right kidney. Abdominal vasculature: The abdominal aorta is normal in course and caliber. Bowel: There is no bowel obstruction. Enteric contrast reaches the distal colon. The appendix is wel l-visualized and normal. Peritoneum: There is no intraperitoneal free air or abdominal ascites. There is a small fat-containin g umbilical hernia. Lymphadenopathy: None. Pelvic viscera: The bladder, uterus, and adnexa are normal as visualized noting an intrauterine devic e in place. Ovarian follicles are seen bilaterally. Skeletal structures: No lytic or blastic lesions are seen. IMPRESSION: There are no acute infectious or inflammatory findings in the abdomen or pelvis and there has been no significant change from study performed 2 days previously. Electronically signed by: Jasiel Wynn M.D. 08/13/2019 1:15 PM
[2019-08-13] MEDS ORDERED: POTASSIUM CHLORIDE 20 MEQ TABCR PO STA (18:13)
--- NOTE | 2019-08-13 18:21 | Hospitalist Progress Note ---
Date of Service August 13, 2019 Assessment & Plan (1) Abdominal pain: Most likely due to viral gastroenteritis. Patient is feeling much better in the afternoon. She requested to be discharged home. She tolerates food much better. Stool cultures still pending recommended to follow-up with her PCP on the culture result. C. difficile is negative. CT scan of abdomen pelvis with IV and p.o. contrast shows no acute infectious or inflammatory findings in the abdomen or pelvis and there has been no significant change from the study performed 2 days previously. Patient should follow-up with her PCP within 7 days. She should also follow-up with GI recommendation for outpatient colonoscopy in 4 to 6 weeks for evaluation of chronic loose stools, intermittent rectal bleeding. Full code (2) Nausea: As above (3) Vomiting: As above (4) Chronic diarrhea: C. difficile negative. Follow-up with GI and colonoscopy in 4 to 6 weeks. (5) Asthma: Stable now. Patient does not take anything for asthma at this time. (6) Hypokalemia: Replenished potassium, given 40 M EQ x1 Present on Admission?: Yes Subjective Pt seen and examined at the bedside. Patient reports feeling better after CT scan and she is able to tolerate food much better. Patient requested regular food which she tolerated very well. She requested to be discharged home. Patient denies fever, chills, chest pain, shortness of breath, frequency, urgency. Patient is right now tolerating liquids and will advance diet as tolerated as tolerated. Afebrile. Review of Systems Review of Systems: All systems reviewed & are unremarkable except as noted in HPI & below Physical Exam Constitutional: WD/WN, vitals as above well developed Eyes: PERRL, conjunctivae normal, anicteric sclerae ENMT: external ear and nose normal, oropharynx normal Neck: trachea midline, no thyromegaly Respiratory: normal respiratory effort, lungs clear to auscultation Cardiovascular: RRR, no murmur, no edema Gastrointestinal (Abdomen): normal bowel sounds, soft, nontender, no hepatosplenomegaly Musculoskeletal: no cyanosis or clubbing, extremities motor strength 5/5 Skin: no rashes, warm and dry Neurologic: patellar DTR's 2+ bilat, sensation intact Psychiatric: A+Ox3, euthymic affect Lymphatic: no cervical or axillary lymphadenopathy Results & Data Vital Signs (Past 12 Hours) Vital Signs Temp Pulse Resp BP Pulse Ox 11/19/19 15:20 36.7 C 49 L 18 99/62 L 96 08/13/19 11:34 36.8 C 53 L 17 112/68 94 08/13/19 07:16 37 C 68 16 107/65 95 PG Care Time/CCT Total # of Minutes Spent Total Time Spent with Patient: Total time spent is greater than 50% in coordination of care (as documented) at patient's floor/unit and/or counseling patient:
--- NOTE | 2019-08-13 18:28 | Discharge Summary ---
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 Patient reports chronic diarrhea since her gallbladder has been removed. Patient reports that nothing helps it. Patient denies fever, chills, chest pain, shortness of breath, frequency urgency. Patient reports no melena or hematochezia. Labs are reviewed which shows: WBCs of 5.24, hemoglobin 13.3, hematocrit 39.3, platelets 290, sodium of 140, potassium 3.5, chloride 107, BUN 15, creatinine 0.59, GFR 113, magnesium not checked, AST 11, ALT 17, alkaline phosphatase 82. Urine all negative except for trace ketones. CT scan of the abdomen: no bowel obstruction or bowel wall thickening, noninflamed appendix, multifocal parenchymal scarring and cortical thinning of the right kidney redemonstrated. Additionally there is suggestion of mild urothelial thickening of the right renal pelvis. They recommended correlation with urinalysis which is negative. Cholecystectomy. Decision was made to admit patient for observation for abdominal pain possibly due to viral enterocolitis or some other etiology, and for management of nausea vomiting and abdominal pain. Principal Diagnosis none Discharge Exam Constitutional WD/WN, vitals as above well developed Eyes PERRL, conjunctivae normal, anicteric sclerae ENMT external ear and nose normal, oropharynx normal Neck trachea midline, no thyromegaly Respiratory normal respiratory effort, lungs clear to auscultation Cardiovascular RRR, no murmur, no edema Gastrointestinal (Abdomen) normal bowel sounds, soft, nontender, no hepatosplenomegaly Musculoskeletal no cyanosis or clubbing, extremities motor strength 5/5 Skin no rashes, warm and dry Neurologic patellar DTR's 2+ bilat, sensation intact Psychiatric A+Ox3, euthymic affect Lymphatic no cervical or axillary lymphadenopathy Discharge Data Allergies Allergy/AdvReac Type Severity Reaction Status Date / Time Penicillins Allergy Intermediate HIVES Verified 08/11/19 12:57 ciprofloxacin Allergy Mild Redness of Verified 08/11/19 12:57 Skin ENVIROMENTAL Allergy Severe SNEEZING Uncoded 08/11/19 12:57 /ITCHY EYES/ MILD ASTHMA Consultations 08/11/19 18:06 ED Decision to Admit Stat 08/12/19 09:14 Consult Gastroenterology Routine Ordered Studies 08/11/19 12:37 CT abd pelvis IV con only Stat 08/11/19 14:42 US pelvic complete Stat US transvaginal Stat 08/13/19 10:13 CT abd pelvis oral and IV con Stat Hospital Course (1) Abdominal pain: Most likely due to viral gastroenteritis. Patient is feeling much better in the afternoon. She requested to be discharged home. She tolerates food much better. Stool cultures still pending recommended to follow-up with her PCP on the culture result. C. difficile is negative. CT scan of abdomen pelvis with IV and p.o. contrast shows no acute infectious or inflammatory findings in the abdomen or pelvis and there has been no significant change from the study performed 2 days previously. Patient should follow-up with her PCP within 7 days. She should also follow-up with GI recommendation for outpatient colonoscopy in 4 to 6 weeks for evaluation of chronic loose stools, intermittent rectal bleeding. Full code (2) Nausea: As above (3) Vomiting: As above (4) Chronic diarrhea: C. difficile negative. Follow-up with GI and colonoscopy in 4 to 6 weeks. (5) Asthma: Stable now. Patient does not take anything for asthma at this time. (6) Hypokalemia: Replenished potassium, given 40 M EQ x1 Total Time Total Time Spent Total Time Spent (In Minutes): over 30 min Discharge Plan Discharge Items Patient Disposition: Home - Self-Care Reason For Visit: ABD PAIN NAUSEA AND VOMITING Discharge Diagnosis: gastroenteritis Condition on Discharge: Good Activity: As commented below Lifting: Gradually increase as tolerated Non-emergency contact: Primary Care Provider and Enrollment Processor Call non-emergency contact if: you have any medication questions, your symptoms worsen, your pain is not controlled, your pain is worsening, your pain is unusual for you, your pain is concerning for you, you have a fever, your temperature is above 101 and your temperature is above 101.5 Follow-up/Referrals: Zandra Shi PA-C [Primary Care Provider] - Diet: Low Fiber Addtl Attending Provider Instructions: Follow-up with PCP within 1 week. Outpatient colonoscopy within 4 to 6 weeks. Pending Studies at Discharge: Yes Studies:: Stool studies Stand-Alone Forms: [employer], Smoking Cessation Medications and DC Order Prescriptions: New dicyclomine 10 mg capsule 10 mg PO TID Qty: 15 RF: 0 oxycodone-acetaminophen [Percocet] 5-325 mg tablet 1 tab PO Q6H PRN (Reason: pain) Qty: 12 RF: 0 ondansetron 4 mg tablet,disintegrating 4 mg PO Q6H PRN (Reason: nausea and vomiting) Qty: 15 RF: 0 fluoxetine 20 mg Capsule 20 mg PO QAM Qty: 30 RF: 0 colestipol [Colestid] 1 gram Tablet 1 g PO TID@1000,1500,2200 Qty: 90 RF: 0 dicyclomine 10 mg Capsule 10 mg PO TID Qty: 20 RF: 0 Cheikh-Sequels (iron-vit c) 200 mg (65 mg iron)-25 mg tablet extended release 1 tab PO DAILY Qty: 30 RF: 0 Discharge Orders: Discharge Order (Routine); Ordered 08/13/19 Ordered By: Yonny Chavez Admission Data Admit Date/Time: 08/13/19 10:15 Attending Provider: Yonny Chavez Admit Provider: Yonny Chavez Primary Care Provider: Zandra Shi Other Providers: Yonny Chavez ; Jaye Gibbs
== END 2019-08-13 18:46 | disposition home or self-care (01) | DRG 392 ==
LOC: ED 12:06 → 4W 12:06

== ENCOUNTER 2020-03-02 14:04 | Inpatient (IN) ==
--- OUTSIDE RECORDS SUMMARY | 2020-03-02 14:07 | External Medical Summary | Continuity of Care Document ---
:1975 Author Name Jairo Yip, Provider Address Unavailable Unavailable , Care Team Providers Name Role Phone Unavailable Unavailable Unavailable Chacho Vivas DO Unavailable [email or web address] Rebekah Yip, Alex Champagne Unavailable [email or web address] Carlos Alberto RUSSELL Unavailable Unavailable Unavailable Unavailable Unavailable Problems Encounter for gynecological examination without abnormal finding (V72.31) (Z01.419) IUD check up (V25.42) (Z30.431) Menorrhagia (626.2) (N92.0) Breakthrough bleeding with IUD (626.6) (N92.1) Cholecystitis (575.10) (K81.9) Biliary dyskinesia (575.8) (K82.8) Diarrhea (787.91) (R19.7) Allergies and Adverse Reactions Penicillins (Allergy) Medications Mirena (52 MG) 20 MCG/24HR Intrauterine Intrauterine D evice; USE DIRECTED. Phi Welch Start: 10-Aug-2016 Quantity: 1 Refills: 0 Cholestyramine 4 GM Oral Packet; MIX THE CONTENTS OF 1 POWDER PACKET WITH 2 TO 6 OZ OF NONCARBONATED BEVERAGE AND DRINK 3 TIMES DAILY. DO Chacho Vivsa Start: 20-Dec-2018 Quantity: 90 Refills: 2 Procedures History of Section Status: Comp leted History of Tonsillectomy Status: Complet ed History of Cholecystectomy Laparoscopic Status: Completed 14-Nov-2018 0:00 Immunizations Immunizations not documented Family History Sister Family history of hypoglycemia (V18.19) (Z83.49) Status: Act marianne Family history of uterine leiomyoma (V18.7) (Z84.89) Status: Active cousin Family history of malignant neoplasm of cervix (V16.49) (Z80 .49) Status: Active Family history of Ovarian cancer (183.0) (C56.9) Status: Act marianne Family history of malignant neoplasm of uterus (V16.49) (Z80 .49) Status: Active Mother Family history of uterine leiomyoma (V18.7) (Z84.89) Status: Active Plan of Treatment Planned Observations Planned Goals not documented Results No Known Results Results not documented Encounters Appointment; Surg SC1, Nursing Station 22-Nov-2018 10:45 Encounter Diagnosis: Problem not documented Appointment; Chacho Vivas DO 19-Nov-2018 13:50 Encounter Diagnosis: Problem not documented Appointment; Alex Welch M.D. 15-May-2018 16:10 Encounter Diagnosis: Problem not documented
--- OUTSIDE RECORDS SUMMARY | 2020-03-02 14:08 | External Medical Summary | Continuity of Care Document ---
:1975 Author Name Jairo Yip, Provider Address Unavailable Unavailable , Care Team Providers Name Role Phone Unavailable Unavailable Unavailable Chacho Vivas DO Unavailable [email or web address] Rebekah Yip, Alex Champagne Unavailable [email or web address] Carlos Alberto RUSSELL Unavailable [...] AND DRINK 3 TIMES DAILY. DO Chacho Vivas Start: 20-Dec-2018 Quantity: 90 Refills: 2 Procedures [...]
--- NOTE | 2020-03-02 14:33 | Emergency Department Note ---
Impression & Plan Suicidal ideation, UTI (urinary tract infection) ED Provider Note NAME: ADOLPH COATES AGE: 44 SEX: F : 1975 ARRIVES VIA: Walk-In INFORMANT: [Patient] ED PROVIDER(S): [Jasiel Kellogg MD] CHIEF COMPLAINT: Suicidal ideation HISTORY OF PRESENT ILLNESS: The patient is a 44-year-old female who is having difficulty with her /marriage. She has had issues now for years and she has had counseling with her . Patient states that today, she got into an argument with her about his whereabouts and lack of openness. She is concerned that he may be having an affair. The patient states that her has an alcohol problem and she is stressed over his drinking in addition to everything else. The patient states that today, during the argument, her accused her of being a bad mother. She became quite distraught and considered wrecking her car to kill herself. She consider taking pills in overdose. She then decided to come to the hospital for help. She is voluntary and would like to stay in the hospital on the psychiatric floor. The patient is on Prozac. She has had the dose increased recently. She states this is not helping. She has no homicidal ideation. She has been in baseline health. She does not use alcohol or drugs. She did take pills when she was a teenager in a suicide attempt. REVIEW OF SYSTEMS: See HPI for pertinent positives and negatives. A total of ten systems were reviewed and were otherwise negative. PMHx/PSHx: See Below SOCIAL HISTORY: See Below. PHYSICAL EXAM: GENERAL: Patient is in mild distress, anxious. HEENT: No acute trauma, normocephalic atraumatic, mucous membranes moist, no nasal congestion, no scleral icterus. NECK: No stridor, no adenopathy, no meningismus, trachea is midline. LUNGS: Clear to auscultation bilaterally, no wheeze, no rhonchi, breath sounds equal. HEART: Tachycardic, regular rhythm, no murmur ABDOMEN: Soft, nontender, bowel sounds positive, no hernias, no peritonitis. EXTREMITIES: No cyanosis or edema, full range of motion of all the joints without pain or difficulty, no signs for acute trauma. NEUROLOGIC: Oriented x 3, no acute motor or sensory deficits, no focal weakness. SKIN: No rash, no jaundice, no diaphoresis. Psychiatric: She is anxious, she is cooperative. She is voluntary. She admits to thinking about wrecking her car or taking pills in an attempt to end her life. DIFFERENTIAL DIAGNOSIS: Mood disorder, infection, hypoglycemia, electrolyte abnormalities, cardiac sources, intracerebral event, toxicologic, trauma, neurologic, as well as other pathologies. EMERGENCY DEPARTMENT COURSE/PROCEDURES: MEDICAL DECISION MAKING: There is no leukocytosis or concerning anemia. No significant electrolyte abnormality or kidney failure. No concerning liver enzyme elevation. The patient appeared to be in a euthyroid state. testing was negative. Urinalysis was consistent with infection versus contamination. Aspirin, Tylenol and alcohol levels were undetectable. Urine tox was negative. The patient presents with suicidal ideation. She is voluntary. The patient was seen by psychiatry case management. She is going to be admitted to our hospital psychiatric facility. She will be admitted voluntarily. She was felt medically clear. Of note, I did give the patient a dose of oral Macrobid for the presumed UTI. This can be continued for about 5 days twice a day. This UTI should not prohibit her voluntary psychiatric admission. Past Med/Surg History Medical History Asthma (Chronic) delivery delivered No acute medical problems Surgical History History of cholecystectomy S/P tonsillectomy Social History Preferred Language: Ukrainian Communication Ability: Effective Mobile Practice Lead Required: No Beliefs That Will Affect Care: None Current Living Situation: Spouse Feels Safe at Home: No Is there a partner from a previous relationship who is making you feel unsafe now?: No Smoking Status: Never smoker Second Hand Exposure: Yes ; Hx Alcohol Use: No Hx Substance Use: No Allergies Allergies Allergy/AdvReac Type Severity Reaction Status Date / Time Penicillins Allergy Intermediate HIVES Verified 03/02/20 15:14 ciprofloxacin Allergy Mild Redness of Verified 03/02/20 15:14 Skin ENVIROMENTAL Allergy Severe SNEEZING Uncoded 08/11/19 12:57 /ITCHY EYES/ MILD ASTHMA Home Meds Home Medications Medication Instructions Recorded Confirmed dicyclomine 10 mg PO TID PRN 03/02/20 03/02/20 naproxen 500 mg PO BID PRN 03/02/20 03/02/20 rizatriptan [Maxalt] 10 mg PO DAILY PRN 03/02/20 03/02/20 Previous Rx's Medication Instructions Recorded fluoxetine 20 mg PO QAM #30 cap 08/13/19 Results & Data (ED) Vital Signs Vital Signs - 24 hr 03/02/20 14:08 Temperature 37.0 C Temperature Source Oral Pulse Rate 107 H Pulse Rhythm Regular Pulse Strength Normal Respiratory Rate 16 Respiratory Effort / Characteristics Non-Labored Respiratory Depth Normal Respiratory Pattern Regular Blood Pressure 147/92 H Blood Pressure Mean 110 Blood Pressure Position Sitting Pulse Oximetry 96 Oxygen Delivery Method Room Air Sepsis Recent Fever Within 48 Hours No Sepsis New/Unexplained Change in Mental Status No Sepsis Action Taken by Nursing No Action Required Home Medications Current Medication List: was personally reviewed by me Laboratory Data Attestation: I reviewed the patient's lab results. Result diagrams: 03/02/20 14:38 03/02/20 14:38 Lab Results 03/02/20 03/02/20 03/02/20 Range/Units 14:38 14:38 14:38 WBC 8.54 (4.8-10.8) K/uL RBC 4.72 (4.2-5.4) M/uL Hgb 14.2 (12.0-16.0) g/dL Hct 41.7 (37-47) % MCV 88.3 (80-100) fL MCH 30.1 (25-34) pg MCHC 34.1 (32-36) g/dL RDW Std Deviation 40.0 (36.4-46.3) fL RDW Coeff of Jossy 12.3 (11.5-14.5) % Plt Count 337 (130-400) K/uL MPV 9.6 (7.4-10.4) fL Immature Gran % (Auto) 0.2 % Neut % (Auto) 61.9 % Lymph % (Auto) 30.3 % [place] % (Auto) 6.4 % Eos % (Auto) 1.1 % Baso % (Auto) 0.1 % Immature Gran # (Auto) 0.02 (0.00-0.02) K/uL Neut # (Auto) 5.28 (1.4-6.5) K/uL Lymph # (Auto) 2.59 (1.2-3.4) K/uL [place] # (Auto) 0.55 (0.11-0.59) K/uL Eos # (Auto) 0.09 (0-0.5) K/uL Baso # (Auto) 0.01 (0-0.2) K/uL Sodium 139 (136-145) mmol/L Potassium 3.4 L (3.5-5.1) mmol/L Chloride 105 (98-107) mmol/L Carbon Dioxide 27 (21-32) mmol/L Anion Gap 6.0 (3-11) BUN 22 H (7-18) mg/dl Creatinine 0.71 (0.6-1.2) mg/dl Est Cr Clr Drug Dosing 116.5 ml/min Est GFR ( Amer) 121.8 Est GFR (Non-Af Amer) 105.1 BUN/Creatinine Ratio 31.1 H (10-20) Glucose 89 (70-99) mg/dl Calcium 9.6 (8.5-10.1) mg/dl Total Bilirubin 0.3 (0.2-1) mg/dl AST 7 L (15-37) U/L ALT 23 (12-78) U/L Alkaline Phosphatase 95 (45-117) U/L Total Protein 8.1 (6.4-8.2) gm/dl Albumin 4.0 (3.4-5.0) gm/dl Globulin 4.1 H (2.5-4.0) gm/dl Albumin/Globulin Ratio 1.0 (0.9-2) TSH 0.659 (0.300-4.500) uIu/ml HCG, Qual (Negative) Urine Color Urine Appearance (Clear) Urine pH (4.5-7.5) Ur Specific [place] (1.000-1.030) Urine Protein (Negative) Urine Glucose (UA) (Negative) Urine Ketones (Negative) Urine Blood (Negative) Urine Nitrite (Negative) Urine Bilirubin (Negative) Urine Urobilinogen (Negative) Ur Leukocyte Esterase (Negative) Urine WBC (Auto) (0-5) /hpf Urine RBC (Auto) (0-4) /hpf U Hyaline Cast (Auto) (0-5) /lpf U Epithel Cells (Auto) (0-5) /lpf Urine Bacteria (Auto) (Negative) Salicylates < 1.7 L (2.8-20) mg/dl Urine Opiates Screen (Neg) Ur Methadone, Qual (Neg) Acetaminophen < 2 L (10-30) ug/ml Urine Barbiturates (Neg) Ur Phencyclidine (PCP) (Neg) U Amphetamin/Meth Scrn (Neg) MDMA (Ecstasy) Screen (Neg) U Benzodiazepines Scrn (Neg) Ur Cocaine Metabolite (Neg) U Marijuana (THC) Screen (Neg) Ethyl Alcohol mg/dL (0-3) mg/dl 03/02/20 03/02/20 03/02/20 Range/Units 14:38 14:38 14:47 WBC (4.8-10.8) K/uL RBC (4.2-5.4) M/uL Hgb (12.0-16.0) g/dL Hct (37-47) % MCV (80-100) fL MCH (25-34) pg MCHC (32-36) g/dL RDW Std Deviation (36.4-46.3) fL RDW Coeff of Jossy (11.5-14.5) % Plt Count (130-400) K/uL MPV (7.4-10.4) fL Immature Gran % (Auto) % Neut % (Auto) % Lymph % (Auto) % [place] % (Auto) % Eos % (Auto) % Baso % (Auto) % Immature Gran # (Auto) (0.00-0.02) K/uL Neut # (Auto) (1.4-6.5) K/uL Lymph # (Auto) (1.2-3.4) K/uL [place] # (Auto) (0.11-0.59) K/uL Eos # (Auto) (0-0.5) K/uL Baso # (Auto) (0-0.2) K/uL Sodium (136-145) mmol/L Potassium (3.5-5.1) mmol/L Chloride (98-107) mmol/L Carbon Dioxide (21-32) mmol/L Anion Gap (3-11) BUN (7-18) mg/dl Creatinine (0.6-1.2) mg/dl Est Cr Clr Drug Dosing ml/min Est GFR ( Amer) Est GFR (Non-Af Amer) BUN/Creatinine Ratio (10-20) Glucose (70-99) mg/dl Calcium (8.5-10.1) mg/dl Total Bilirubin (0.2-1) mg/dl AST (15-37) U/L ALT (12-78) U/L Alkaline Phosphatase (45-117) U/L Total Protein (6.4-8.2) gm/dl Albumin (3.4-5.0) gm/dl Globulin (2.5-4.0) gm/dl Albumin/Globulin Ratio (0.9-2) TSH (0.300-4.500) uIu/ml HCG, Qual Negative (Negative) Urine Color Urine Appearance (Clear) Urine pH (4.5-7.5) Ur Specific [place] (1.000-1.030) Urine Protein (Negative) Urine Glucose (UA) (Negative) Urine Ketones (Negative) Urine Blood (Negative) Urine Nitrite (Negative) Urine Bilirubin (Negative) Urine Urobilinogen (Negative) Ur Leukocyte Esterase (Negative) Urine WBC (Auto) (0-5) /hpf Urine RBC (Auto) (0-4) /hpf U Hyaline Cast (Auto) (0-5) /lpf U Epithel Cells (Auto) (0-5) /lpf Urine Bacteria (Auto) (Negative) Salicylates (2.8-20) mg/dl Urine Opiates Screen Neg (Neg) Ur Methadone, Qual Neg (Neg) Acetaminophen (10-30) ug/ml Urine Barbiturates Neg (Neg) Ur Phencyclidine (PCP) Neg (Neg) U Amphetamin/Meth Scrn Neg (Neg) MDMA (Ecstasy) Screen Neg (Neg) U Benzodiazepines Scrn Neg (Neg) Ur Cocaine Metabolite Neg (Neg) U Marijuana (THC) Screen Neg (Neg) Ethyl Alcohol mg/dL < 3.0 (0-3) mg/dl 03/02/20 Range/Units 14:47 WBC (4.8-10.8) K/uL RBC (4.2-5.4) M/uL Hgb (12.0-16.0) g/dL Hct (37-47) % MCV (80-100) fL MCH (25-34) pg MCHC (32-36) g/dL RDW Std Deviation (36.4-46.3) fL RDW Coeff of Jossy (11.5-14.5) % Plt Count (130-400) K/uL MPV (7.4-10.4) fL Immature Gran % (Auto) % Neut % (Auto) % Lymph % (Auto) % [place] % (Auto) % Eos % (Auto) % Baso % (Auto) % Immature Gran # (Auto) (0.00-0.02) K/uL Neut # (Auto) (1.4-6.5) K/uL Lymph # (Auto) (1.2-3.4) K/uL [place] # (Auto) (0.11-0.59) K/uL Eos # (Auto) (0-0.5) K/uL Baso # (Auto) (0-0.2) K/uL Sodium (136-145) mmol/L Potassium (3.5-5.1) mmol/L Chloride (98-107) mmol/L Carbon Dioxide (21-32) mmol/L Anion Gap (3-11) BUN (7-18) mg/dl Creatinine (0.6-1.2) mg/dl Est Cr Clr Drug Dosing ml/min Est GFR ( Amer) Est GFR (Non-Af Amer) BUN/Creatinine Ratio (10-20) Glucose (70-99) mg/dl Calcium (8.5-10.1) mg/dl Total Bilirubin (0.2-1) mg/dl AST (15-37) U/L ALT (12-78) U/L Alkaline Phosphatase (45-117) U/L Total Protein (6.4-8.2) gm/dl Albumin (3.4-5.0) gm/dl Globulin (2.5-4.0) gm/dl Albumin/Globulin Ratio (0.9-2) TSH (0.300-4.500) uIu/ml HCG, Qual (Negative) Urine Color Yellow Urine Appearance Cloudy A (Clear) Urine pH 7.0 (4.5-7.5) Ur Specific [place] 1.021 (1.000-1.030) Urine Protein Negative (Negative) Urine Glucose (UA) Negative (Negative) Urine Ketones Negative (Negative) Urine Blood Negative (Negative) Urine Nitrite Negative (Negative) Urine Bilirubin Negative (Negative) Urine Urobilinogen Negative (Negative) Ur Leukocyte Esterase 2+ H (Negative) Urine WBC (Auto) >30 H (0-5) /hpf Urine RBC (Auto) 0-4 (0-4) /hpf U Hyaline Cast (Auto) 0 (0-5) /lpf U Epithel Cells (Auto) >30 H (0-5) /lpf Urine Bacteria (Auto) 1+ H (Negative) Salicylates (2.8-20) mg/dl Urine Opiates Screen (Neg) Ur Methadone, Qual (Neg) Acetaminophen (10-30) ug/ml Urine Barbiturates (Neg) Ur Phencyclidine (PCP) (Neg) U Amphetamin/Meth Scrn (Neg) MDMA (Ecstasy) Screen (Neg) U Benzodiazepines Scrn (Neg) Ur Cocaine Metabolite (Neg) U Marijuana (THC) Screen (Neg) Ethyl Alcohol mg/dL (0-3) mg/dl Administered Medications Discontinued Medications Nitrofurantoin Macrocrystals (Macrobid) 100 mg PO NOW STA Stop: 03/02/20 15:46 Last Admin: 03/02/20 15:55 Dose: 100 mg Documented by: [id number] Blood Pressure Blood Pressure Findings: Elevated blood pressure Blood Pressure Disposition: Referred to patients primary care provider Discharge Plan Visit Data Chief Complaint: Mental Health Evaluation Stated Complaint: MENTAL HEALTH EVAL REQUESTED ED Provider: Jasiel Kellogg Discharge Problem: Suicidal ideation, UTI (urinary tract infection) Patient Disposition: Admitted As Inpatient Condition: Good Forms Stand Alone Forms: [facility] [employer], Suicide Prevention Resources Prescriptions Prescriptions: No Action fluoxetine 20 mg Capsule 20 mg PO QAM Qty: 30 RF: 0 rizatriptan [Maxalt] 10 mg Tablet 10 mg PO DAILY PRN (Reason: Migraine Headache) RF: 0 dicyclomine 10 mg capsule 10 mg PO TID PRN (Reason: Abdominal Pain) RF: 0 naproxen 500 mg Tablet 500 mg PO BID PRN (Reason: Pain) RF: 0 Referrals Referrals: Zandra Shi PA-C [Primary Care Provider] - Discharge Problem: UTI (urinary tract infection) Qualifiers: Urinary tract infection type: acute cystitis Hematuria presence: without hematuria Qualified Code(s): N30.00 - Acute cystitis without hematuria
[2020-03-02 15:04] LABS: Basophils # (auto) 0.01 K/uL (0-0.2); Basophils % (auto) 0.1 %; Eosinophils # (auto) 0.09 K/uL (0-0.5); Eosinophils % (auto) 1.1 %; Hematocrit (blood only) 41.7 % (37-47); Hemoglobin 14.2 g/dL (12.0-16.0); Immature Granulocytes # (auto) 0.02 K/uL (0.00-0.02); Immature Granulocytes % (auto) 0.2 %; Lymphocytes # (auto) 2.59 K/uL (1.2-3.4); Lymphocytes % (auto) 30.3 %; Mean Corpuscular Hemoglobin 30.1 pg (25-34); Mean Corpuscular Hgb Conc 34.1 g/dL (32-36); Mean Corpuscular Volume 88.3 fL (80-100); Mean Platelet Volume 9.6 fL (7.4-10.4); Monocytes # (auto) 0.55 K/uL (0.11-0.59); Monocytes % (auto) 6.4 %; Neutrophils # (auto) 5.28 K/uL (1.4-6.5); Neutrophils % (auto) 61.9 %; Platelet Count 337 K/uL (130-400); RDW Coefficient of Variation 12.3 % (11.5-14.5); Red Blood Count 4.72 M/uL (4.2-5.4); White Blood Count 8.54 K/uL (4.8-10.8)
[2020-03-02 15:19] LABS: Appearance Urine Cloudy (Clear); Bacteria Urine Automated 1+ (Negative); Bilirubin Urine Negative (Negative); Blood Urine Negative (Negative); Cast Urine Automated 0 /lpf (0-5); Color Urine Yellow; Epithelial Cell Urine Auto >30 /lpf (0-5); Glucose Urine UA Negative (Negative); Ketones Urine Negative (Negative); Leukocyte Esterase Urine 2+ (Negative); Nitrite Urine Negative (Negative); Protein Urine Negative (Negative); Specific Gravity Urine 1.021 (1.000-1.030); Urobilinogen Urine Negative (Negative); WBC Urine Automated >30 /hpf (0-5)
[2020-03-02 15:25] LABS: Pregnancy Test, Serum Negative (Negative)
[2020-03-02 15:28] LABS: BUN Creatinine Ratio 31.1 (10-20); Calcium 9.6 mg/dl (8.5-10.1); Creatinine Clr Calc Pharmacy 116.5 ml/min; Est GFR (African American) 121.8; Est GFR (Non-African American) 105.1; Potassium 3.4 mmol/L (3.5-5.1)
[2020-03-02 15:30] LABS: RBC Urine Automated 0-4 /hpf (0-4)
[2020-03-02 15:31] LABS: Acetaminophen < 2 ug/ml (10-30); Salicylate < 1.7 mg/dl (2.8-20)
[2020-03-02 15:38] LABS: Bilirubin,Total 0.3 mg/dl (0.2-1); Globulin 4.1 gm/dl (2.5-4.0); Thyroid Stimulating Hormone 0.659 uIu/ml (0.300-4.500); Total Protein 8.1 gm/dl (6.4-8.2)
[2020-03-02] MEDS ORDERED: NITROFURANTOIN MONOHYDRATE 100 MG CAP PO STA (15:45)
[2020-03-02 15:53] LABS: Amphetamines+Metham, Urine Neg (Neg); Barbiturates, Urine Neg (Neg); Benzodiazepine, Urine Neg (Neg); Cocaine, Urine Neg (Neg); MDMA (Ecstacy), Urine Neg (Neg); Methadone, Urine Neg (Neg); Opiate, Urine Neg (Neg); Phencyclidine, Urine Neg (Neg)
[2020-03-02] MEDS ORDERED: ALUMINUM/MAGNESIUM SUSP 30 ML UDC PO PRN (17:28)
[2020-03-02] MEDS ORDERED: SODIUM CHLORIDE 0.65% NA SOLN 45 ML (OCEAN) PRN (17:28)
[2020-03-02] MEDS ORDERED: BISMUTH SUBSALICYLATE PER ML OMNICELL CHARGE PO PRN (17:28)
[2020-03-02] MEDS ORDERED: MAGNESIUM HYDROXIDE SUSP 30 ML UDC PO PRN (17:28)
[2020-03-02] MEDS ORDERED: ACETAMINOPHEN 325 MG TAB PO PRN (17:28)
[2020-03-02] MEDS ORDERED: RIZATRIPTAN BENZOATE 10 MG TAB PO PRN (17:30)
[2020-03-02] MEDS ORDERED: NAPROXEN 250 MG TAB PO PRN (17:30)
[2020-03-02] MEDS: NITROFURANTOIN MONOHYDRATE 100 MG CAP PO SCH (22:16)
[2020-03-03] MEDS: NITROFURANTOIN MONOHYDRATE 100 MG CAP PO SCH ×2 (08:21→20:51)
[2020-03-03] MEDS: DICYCLOMINE HCL 10 MG CAP PO PRN ×2 (08:49→13:49)
[2020-03-03] MEDS ORDERED: FLUOXETINE HCL 20 MG CAP PO SCH (09:00)
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
[2020-03-03] MEDS ORDERED: FLUOXETINE HCL 20 MG CAP PO ONE (13:10)
[2020-03-04] MEDS: NITROFURANTOIN MONOHYDRATE 100 MG CAP PO SCH ×2 (08:56→21:16)
[2020-03-04] MEDS: FLUOXETINE HCL 20 MG CAP PO SCH (08:56)
[2020-03-04] MEDS: DICYCLOMINE HCL 10 MG CAP PO PRN (09:50)
[2020-03-04] MEDS ORDERED: LORazepam 0.5 MG TAB PO PRN (12:38)
--- NOTE | 2020-03-04 12:40 | Psychiatric Progress Note ---
Date of Service March 04, 2020 Impression / Recommendations Impression Mood, anger, and suicidal thoughts worsening today after difficult family meeting with , where he stated he wants a separation. She is exploring the option of going to live with her mother in [place], but is overwhelmed with increased suicidality. Lorazepam added as needed for severe anxiety. She was referred [place] [facility] for [place], but will need to explore options if she does indeed move to [place]. (1) Depression: 03/03 -Patient describes symptoms of irritable depression, with significant marital strain. She is prescribed Prozac by her PCP but has had only partial adherence, and is some resistance to taking medications. Discussed the role of medications, and what to expect from them. Discussed options of discontinuing medications altogether, titrating fluoxetine to a effective dose, or switching to a different SSRI. She opted to increase the fluoxetine to 60 mg daily. Discussed importance of taking it daily and the need to take for 4-6 weeks to see the full effect, as well as the role of therapy (both individual and marital). -Encourage group attendance and participation, work on healthy coping skills and discharge safety plan. -Family meeting with . -Refer for outpatient mental health services, including individual therapy and marital counseling. 03/04 -Mood and SI worse after difficult family meeting with , where he requested a separation. Patient requesting prn, stating hydroxyzine does not help. Will offer lorazepam 0.5mg bid prn acutely. -Continue fluoxetine 60mg daily and consider further dose increase. -Encourage her to process her stressors. Consider meeting with mother, as patient is considering going to [place] to live with her mother. She has been referred [place] [facility] for outpatient psychiatry (Juliet LAGUNA, appt 03/06), and therapy (Shanda Cisneros, appointment 03/09). Will need to explore if she can attend these appointments remotely if she goes to [place]. (2) UTI (urinary tract infection): Complete course of Macrobid started in the ER. Risk Factors Assessment Male: No : Yes Do You Have Access To A Gun?: No Health Problems: No Mental Health Diagnoses: Yes Substance Use Disorders: No Previous Attempt: No Family History of Suicide: No Previous Psychiatric Hospitalization: No Hopelessness: No Smoker: No Protective Factors Assessment : Yes Responsible for Young Children: Yes Employed: Yes ([employer]) Stable Relationships: No Supportive Family: Yes Good Rapport with Provider: No Interval History Identifying Information ADOLPH COATES is a 44-year-old F who currently lives in [place] with her , has a history of depression, and was admitted on 03/02/20 17:28 on a 201 voluntary commitment for depression and suicidality. Chief Complaint "I don't know what to think". Review of Systems Sleep Information Total Hours of Sleep: 7 Meal Information Percent Meal Consumed - Breakfast: 75 Percent Meal Consumed - Lunch: 100 Percent Meal Consumed - Dinner: 50 Subjective Subjective Patient was seen & assessed and interval progress reviewed with treatment team. 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 She has been discussing her stressors, voicing her displeasure with her and their relationship. She agreed to referrals for outpatient psychiatry and therapy at the [place], and appointments were scheduled. She had a family meeting with her and the social research assistant this morning, which was very difficult as he stated he wants a separation. Patient was tearful, stating she would like to work on the relationship. He stated they only got together because she got , and only for logistic purposes. He criticized her for yelling and blamed her for his drinking, and she blamed her yelling on her 's drinking. She said she might moved to [place] to live with her mother, but they were not able to discuss this further. He confirmed that there are no weapons in the home. Afterwards, the patient was distraught, requested additional as needed medication for anxiety, as hydroxyzine was poorly effective. On my assessment, she is very angry at her , stating she has not surprised by his behavior as he has done this before, "he just checks out, doesn't want to deal with it." In the past, she has gotten along with his requests to have 3 symptoms, she felt she had to do this to save their marriage. She is overwhelmed with trying to process the meeting, stating she does not know what to do, and her is "incompetent," and she is supposed to oversee his affairs, including finances. She is thinking of going to [place], and spoke to her mother who said she was welcome to come for as long as she wanted. She reports having good supports in [place], and none here. She does not want to return home with her at this time, stating "I don't want to be around him, I feel used by him." She is not sure what will happen with her kids, stating her son is 18 and is supposed to start college in [place] in the fall, and her daughter is a teenager and still has 2 more years of school, so she does not want to pull her out of her high school. She states her is a good father, and she has no concerns for the children's safety with him. She endorses an increase in suicidal thoughts since the family meeting, but feels safe in the hospital. Physical Exam Psychiatric Apperance: appropriately dressed Overweight, seated in no acute distress. Eye Contact: + poor eye contact Averted gaze Motor Behavior: steady gait and station and no abnormal motor movements Angry tone Affect: + tearful affect, + angry affect and mood congruent with affect "Not good." Thought Process: goal directed thought process Thought Content: + preoccupation (With anger at ), + hopelessness and + worthlessness Suicidal Thoughts: + reports suicidal thoughts Feels safe in the hospital, but not outside. Homicidal Thoughts: denies homicidal thoughts Hallucinations: no auditory hallucinations Cognition: recent memory grossly intact, attention grossly intact and language grossly intact Estimated Intelligence: consistent with education level Insight: + limited insight Judgement: + fair judgement Vital Signs (Past 24 Hours) Last Vital Signs Temp 36.5 C 03/04/20 06:33 Pulse 83 03/04/20 06:35 Resp 18 03/04/20 06:33 BP 106/73 03/04/20 06:35 Pulse Ox 96 03/02/20 19:19 Results & Data ([facility]) Current Inpatient Medications Current Inpatient Medications: Current Inpatient Medications Acetaminophen (Tylenol) 650 mg PO Q4H PRN PRN Reason: Headache or Minor Fever Stop: 04/01/20 17:27 Last Admin: 03/04/20 05:18 Dose: 650 mg Documented by: Al Hydrox/Mg Hydrox/Simethicone (Maalox) 30 ml PO Q4H PRN PRN Reason: GI Upset Stop: 04/01/20 17:27 Bismuth Subsalicylate (Kaopectate) 15 ml PO PRN PRN PRN Reason: Loose Stool Stop: 04/01/20 17:27 Dicyclomine HCl (Bentyl) 10 mg PO TID PRN PRN Reason: Abdominal Pain Stop: 04/01/20 17:29 Last Admin: 03/04/20 09:50 Dose: 10 mg Documented by: Fluoxetine HCl (Prozac) 60 mg PO QAM TC Stop: 04/03/20 08:59 Last Admin: 03/04/20 08:56 Dose: 60 mg Documented by: Hydroxyzine HCl (Vistaril) 50 mg PO HSZ PRN PRN Reason: Insomnia Stop: 04/01/20 17:27 Last Admin: 03/03/20 20:51 Dose: 50 mg Documented by: Hydroxyzine HCl (Vistaril) 25 mg PO Q4H PRN PRN Reason: Anxiety Stop: 04/01/20 17:27 Last Admin: 03/02/20 19:39 Dose: 25 mg Documented by: Magnesium Hydroxide (Milk Of Magnesia) 30 ml PO DAILY PRN PRN Reason: Constipation Stop: 04/01/20 17:27 Naproxen (Naprosyn) 500 mg PO BID PRN PRN Reason: Pain Stop: 04/01/20 17:29 Nitrofurantoin Macrocrystals (Macrobid) 100 mg PO BID TC Stop: 03/07/20 10:59 Last Admin: 03/04/20 08:56 Dose: 100 mg Documented by: Rizatriptan Benzoate (Maxalt) 10 mg PO DAILY PRN PRN Reason: Migraine Headache Stop: 04/01/20 17:29 Last Admin: 03/03/20 11:55 Dose: 10 mg Documented by: Sodium Chloride ([place] Nasal) 1 - 2 sprays NA PRN PRN PRN Reason: Nasal Dryness/Congestion Stop: 04/01/20 17:27 Mental Health & Subst Abuse Tx Psychiatrist Name of Psychiatrist: Juliet Pereira PA-C Date of Appointment with Psychiatrist: 03/06/20 Time of Appointment with Psychiatrist: 9:30am Psychiatric Appointment Comment: She will call you Therapist Name of Therapist: JAVED Vasquez therapist Date of Therapist Appointment: 03/09/20 Time of Therapist Appointment: 8am Therapy Appointment Comment: She will call you Candy Department Manager Name of Candy Department Manager: Denies/None Post Discharge Appointments Primary Care Physician Name Of Family Doctor: Vandana LAGUNA, [facility] (1) Depression Depression Type: major depressive disorder Major depression recurrence: recurrent Active/Remission status: currently active Major depression episode severity: severe Psychotic features: without psychotic features Qualified Code(s): F33.2 - Major depressive disorder, recurrent severe without psychotic features (2) UTI (urinary tract infection) Hematuria presence: without hematuria Urinary tract infection type: acute cystitis Qualified Code(s): N30.00 - Acute cystitis without hematuria
[2020-03-05] MEDS: NITROFURANTOIN MONOHYDRATE 100 MG CAP PO SCH (08:40)
[2020-03-05] MEDS: FLUOXETINE HCL 20 MG CAP PO SCH (08:40)
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
== END 2020-03-05 11:15 | disposition home or self-care (01) | DRG 885 ==
LOC: ED 14:04 → 3S 17:28